=== PATIENT | male | born 1945 | race Caucasian/White ===

== ENCOUNTER 2017-05-21 12:23 | Inpatient (IN) | payer MEDICARE, MEDICAID ==
--- NOTE | 2017-05-21 12:49 | ED Physician Chart ---
ED Chief Complaint/HPI - Patient Information Date Seen:: 05/21/17 Time Seen:: 12:30 Chief Complaint:: Weakness History of Present Illness:: onset x 3 days of N/V/D, weakness, and dizziness; no report of trauma, H/As, S/T , neck pain, C/P, SOB, cough, Abd. Pain, A/C, fever, chills, or urinary s/s Historian:: Patient, EMS Review:: Nurse's Note Reviewed, Old Chart Reviewed, EMS run form Reviewed ED Review of Systems - Review of Systems General/Constitutional: No fever, No chills, No weight loss, No weakness, No diaphoresis, No edema, No loss of appetite Skin: No skin lesions, No rash, No bruising Head: No headache, No light-headedness Eyes: No loss of vision, No pain, No diplopia ENT: No earache, No nasal drainage, No sore throat, No tinnitus Neck: No neck pain, No swelling, No thyromegaly, No stiffness, No mass noted Cardio Vascular: No chest pain, No palpitations, No PND, No orthopnea, No edema Pulmonary: No SOB, No cough, No sputum, No wheezing GI: Nausea, Vomiting, Diarrhea, No pain, No melena, No hematochezia, No constipation, No hematemesis G/U: No dysuria, No frequency, No hematuria, No nacturia Musculoskeletal: No bone or joint pain, No back pain, No muscle pain Endocrine: Polyuria, Polydipsia Psychiatric: No prior psych history, No depression, No anxiety, No suicidal ideation, No homicidal ideation, No auditory hallucination, No visual hallucination Hematopoietic: No bruising, No lymphadenopathy Allergic/Immuno: No urticaria, No angioedema Neurological: No syncope, No focal symptoms, Weakness, No paresthesia, No headache, No seizure, Dizziness, No confusion, Vertigo ED Past Medical History - Past Medical History Obtainable: Yes Past Medical History: HTN, DM, CAD, CHF, Asthma/COPD Family History: Diabetes Melitus, HTN Social History: Non Smoker, No Alcohol, No Drug Use, Single, Care Facility Surgical History: other (Left BKA) Psychiatricy History: None ED Physical Exam - Physical Examination General/Constitutional: Awake, Well-developed, well-nourished, Alert, No distress, GCS 15, Non-toxic appearing, Ambulatory Head: Atraumatic Eyes: Lids, conjuctiva normal, PERRL, EOMI Skin: Nl inspection, No rash, No skin lesions, No ecchymosis, Well hydrated, No lymphadenopathy ENMT: External ears, nose nl, TM canals nl, Nasal exam nl, Lips, teeth, gums nl , Oropharynx nl, Tonsils nl Neck: Nontender, Full ROM w/o pain, No JVD, No nuchal rigidity, No bruit, No mass, No stridor Respiratory: Nl effort/Exclusion, Clear to Auscultation, No Wheeze/Rhonchi/Rales Cardio Vascular: RRR, No murmur, gallop, rubs, NL S1 S2, Carotid/Femoral/Distal pulses equal bilaterally GI: No tenderness/rebounding/guarding, No organomegaly, No hernia, Normal BS's, Nondistended, No mass/bruits, No McBurney tenderness : No CVA tenderness Extremities: No tenderness or effusion, Full ROM, normal strength in all extremities, No edema, Normal digits & nails Other Extremities comments:: Left BKA Neuro/Psych: Alert/oriented, DTR's symmetric, Normal sensory exam, Normal motor strength, Judgement/insight normal, Mood normal, Normal gait, No focal deficits Misc: Normal back, No paraspinal tenderness ED Labs/Radiology/EKG Results - Lab Results Comments:: WBC: 15.3; H/H: 9.5/28.3; Platelets: 533; Na+: 135; BNP: 350; Troponin: 0.12 - Radiology Results Comments:: CHF - EKG Interpretations EKG Time:: 13:28 Rate & Rhythm: 69; NSR Comments:: non-specific st-t changes ED Septic Shock - . Is Septic Shock (SBP<90, OR Lactate>4 mmol\L) present?: No ED Reassessment (Disposition) - Reassessment Reassessment Condition:: Improved - Diagnosis Diagnosis:: Dx: Leukocytosis; Sepsis; Anemia; Hyponatremia; CHF - Aftercare/Follow up Instructions Aftercare/Follow-Up Instructions:: Counseled pt regarding lab results/diagnosis & need follow up, Counseled pt & family regarding lab results/diagnosis & need follow up - Patient Disposition Discharge/Transfer:: Acute Care w/in this hosp Accepting Physician:: Dr. Cerna Time Called:: 1445 Time Responded:: 14:45 Admitted to:: Telemetry Spoke to:: Dr. Cerna Admitting Medical Physician:: Dr. Cerna Condition at Disposition:: Stable, Improved
[2017-05-21] MEDS ORDERED: Sodium Chloride 0.9% 1,000 ML IV ONE (12:50)
[2017-05-21 13:34] LABS: % EOSINOPHILS 4.5 % (0.0-5.0); % LYMPHOCYTES 14.7 % (20.0-50.0); % MONOCYTES 5.6 % (2.0-10.0); % NEUTROPHILS 75.2 % (40.0-80.0); EOSINOPHILE ABSOLUTE 0.7 Th/cmm (0.1-0.4); HEMATOCRIT 28.3 % (41.0-60); HEMOGLOBIN 9.5 gm/dL (12-16); LYMPHOCYTE ABSOLUTE 2.2 Th/cmm (1.5-3.0); MEAN CELL VOLUME 85.9 fl (80-99); MEAN CORPUSCULAR HEMOGLOBIN 28.7 pg (27.0-31.0); MEAN CORPUSCULAR HGB CONC 33.4 pg (28.0-36.0); MEAN PLATELET VOLUME 8.2 fl; MONOCYTE ABSOLUTE 0.9 Th/cmm (0.3-1.0); NEUTROPHILE ABSOLUTE 11.5 Th/cmm (1.8-8.0); PLATELET COUNT 533 Th/cmm (150-400); RED CELL DISTRIBUTION WIDTH 13.1 % (11.5-20.0)
[2017-05-21 13:38] LABS: ALB/GLOB RATIO 0.9 (1.0-1.8); ALKALINE PHOSPHATASE 64 U/L (34-104); ANION GAP 11.7 (7.0-16.0); BILIRUBIN,TOTAL 0.2 mg/dL (0.3-1.0); BUN - UREA NITROGEN 21 mg/dL (7-25); CALCIUM SERUM 8.2 mg/dL (8.6-10.3); CARBON DIOXIDE 22.9 mEq/L (21.0-31.0); CHLORIDE 104 mEq/L (98-107); CHOLESTEROL 119 mg/dL (<200); CREATININE - SERUM 1.6 mg/dL (0.7-1.3); CREATININE KINASE 63 U/L (30-223); GLUCOSE 167 mg/dL (70-105); HDL -HIGH DENSITY LIPOPROTEIN 34 mg/dL (23-92); POTASSIUM SERUM 3.6 mEq/L (3.5-5.1); SGOT 8 U/L (13-39); SGPT/ALT 8 U/L (7-52); SODIUM SERUM 135 mEq/L (136-145); TOTAL PROTEIN,SERUM 6.5 gm/dL (6.0-8.3); TRIGLYCERIDES 152 mg/dL (<150)
[2017-05-21 13:39] LABS: AMYLASE SERUM 32 U/L (29-103); LIPASE 14 U/L (11-82)
[2017-05-21 13:42] LABS: WHITE BLOOD COUNT 15.3 Th/cmm (4.8-10.8)
[2017-05-21 13:54] LABS: INR 1.09 (0.5-1.4); PROTHROMBIN TIME (TEST) 11.4 SECONDS (9.5-11.5)
--- NOTE | 2017-05-21 14:11 | Diagnostic Imaging Report ---
Portable chest x-ray History: Pain Allowing for portable technique the heart size is normal. No focal pulmonary parenchymal processes. No hilar or mediastinal abnormalities. Degenerative changes seen to the spine. Impression: No acute abnormalities.
[2017-05-21 16:21] LABS: URINE MICROSCOPIC INDICATED? YES; URINE SOURCE MIDSTREAM
[2017-05-21 16:28] LABS: URINE BILIRUBIN NEGATIVE (NEGATIVE); URINE BLOOD MODERATE (NEGATIVE); URINE GLUCOSE (UA) 250 mg/dL (NEGATIVE); URINE KETONE NEGATIVE (NEGATIVE); URINE LEUKOCYTE ESTERASE NEGATIVE (NEGATIVE); URINE NITRATE NEGATIVE (NEGATIVE); URINE PROTEIN >=300 mg/dL (NEGATIVE); URINE UROBILINOGEN 0.2 E.U./dL (0.2 - 1.0)
[2017-05-21 16:55] LABS: URINE CLARITY HAZY (CLEAR); URINE COLOR YELLOW
[2017-05-21 16:56] LABS: URINE BACTERIA NONE SEEN /hpf (NONE SEEN); URINE EPITHELIAL CELLS NONE SEEN /lpf (FEW)
[2017-05-21] MEDS ORDERED: cefTRIAXone 1 GM in Sodium Chloride 0.9% 50 ML IV ONE (16:57)
[2017-05-21] MEDS ORDERED: Dextrose 50% 50 mL Abboject IVP PRN (21:43)
[2017-05-21] MEDS ORDERED: Magnesium Hydroxide (MOM) 30 mL UDC PO PRN (21:43)
[2017-05-21] MEDS: D5-0.45NS 1,000 ML IV SCH (21:51)
[2017-05-21] MEDS ORDERED: Azithromycin 250 MG in Sodium Chloride 0.9% 250 ML IV SCH (22:00)
[2017-05-21 23:23] VITALS: BP 141/51
[2017-05-21] MEDS ORDERED: Pneumococcal Vaccine 0.5 mL Vial IM ONE (23:40)
[2017-05-22 07:01] LABS: ANION GAP 8.1 (7.0-16.0); BUN - UREA NITROGEN 16 mg/dL (7-25); CALCIUM SERUM 7.6 mg/dL (8.6-10.3); CARBON DIOXIDE 24.2 mEq/L (21.0-31.0); CHLORIDE 110 mEq/L (98-107); CREATININE - SERUM 1.3 mg/dL (0.7-1.3); GLUCOSE 158 mg/dL (70-105); POTASSIUM SERUM 3.3 mEq/L (3.5-5.1); SODIUM SERUM 139 mEq/L (136-145)
[2017-05-22 07:24] LABS: % BASOPHILS 0.2 % (0.0-2.0); % EOSINOPHILS 6.2 % (0.0-5.0); % LYMPHOCYTES 13.4 % (20.0-50.0); % MONOCYTES 7.5 % (2.0-10.0); % NEUTROPHILS 72.7 % (40.0-80.0); EOSINOPHILE ABSOLUTE 0.7 Th/cmm (0.1-0.4); HEMATOCRIT 28.7 % (41.0-60); HEMOGLOBIN 9.5 gm/dL (12-16); LYMPHOCYTE ABSOLUTE 1.6 Th/cmm (1.5-3.0); MEAN CELL VOLUME 86.4 fl (80-99); MEAN CORPUSCULAR HEMOGLOBIN 28.5 pg (27.0-31.0); MEAN PLATELET VOLUME 8.4 fl; MONOCYTE ABSOLUTE 0.9 Th/cmm (0.3-1.0); NEUTROPHILE ABSOLUTE 8.7 Th/cmm (1.8-8.0); PLATELET COUNT 432 Th/cmm (150-400); RED BLOOD COUNT 3.32 Mil/cmm (3.80-5.80); RED CELL DISTRIBUTION WIDTH 13.1 % (11.5-20.0)
[2017-05-22 07:26] LABS: WHITE BLOOD COUNT 11.9 Th/cmm (4.8-10.8)
[2017-05-22 07:33] LABS: CHOLESTEROL 102 mg/dL (<200); HDL -HIGH DENSITY LIPOPROTEIN 29 mg/dL (23-92); TRIGLYCERIDES 107 mg/dL (<150)
[2017-05-22] MEDS: INSULIN ASPART SLIDING SCALE 100 UNITS/ML UNIT SUBQ SCH ×4 (07:40→21:06)
[2017-05-22] MEDS: Levofloxacin 750mg/150mL 750 MG/150 ML BAG IV SCH (07:45)
[2017-05-22] MEDS: Fluticasone Propionate 0.05mg/Actuation 16gm Nasal Spray NS SCH (08:40)
[2017-05-22] MEDS ORDERED: Non-Formulary Item 1 EA (Protein Supplement [Promod] 30 ML) PO SCH (09:00)
[2017-05-22] MEDS ORDERED: Fleet Enema 135 mL RC PRN (09:00)
[2017-05-22] MEDS ORDERED: Potassium Chloride 20 mEq ER Tab PO ONE (12:45)
--- NOTE | 2017-05-22 16:25 | History and Physical ---
History of Present Illness - HPI Vital Signs: Last Vital Signs Temp 97.8 F 05/22/17 04:00 Pulse 70 05/22/17 08:41 Resp 20 05/22/17 08:00 BP 156/59 05/22/17 08:41 Pulse Ox 99 05/22/17 04:00 Family Medical History - Family Member Mother History Unknown: Yes - Medications Home Medications: Home Medication Medication Instructions Recorded Type Acetaminophen [Tylenol] 650 mg PO Q4HR PRN 05/21/17 History Atorvastatin Calcium [Lipitor] 1 tab PO HS 05/21/17 History Benazepril HCl 20 mg PO DAILY 05/21/17 History Bisacodyl [Dulcolax 10 Mg Supp] 1 supp RC DAILY PRN 05/21/17 History Clopidogrel [Plavix] 1 tab PO DAILY 05/21/17 History Dextrose 25% [Dextrose 10 ml] 50 ml IV STAT PRN PRN 05/21/17 History Dextrose [Glucose Gel] 15 gm PO STAT PRN PRN 05/21/17 History Docusate Sodium [Colace] 1 cap PO Q12H PRN 05/21/17 History Finasteride [Proscar] 1 tab PO DAILY 05/21/17 History Fleet Enema 1 bot RC DAILY 05/21/17 History Hydrocodone/Acetaminophen [[place] 1 tab PO Q4H PRN 05/21/17 History 325 mg-5 mg*] Hydrocodone/Acetaminophen [[place] 2 tab PO Q4H PRN 05/21/17 History 325 mg-5 mg*] Insulin Aspart Sliding Scale See Protocol SUBQ ACHS PRN 05/21/17 History [NovoLOG INSULIN SLIDING SCALE] Labetalol HCl 200 mg PO DAILY 05/21/17 History Magnesium Hydroxide [Milk of 30 ml PO DAILY PRN 05/21/17 History Magnesia] Ondansetron [Zofran ODT] 4 mg PO Q6HR PRN 05/21/17 History Protein Supplement [Promod] 30 ml PO TID 05/21/17 History Tamsulosin [Flomax] 0.4 mg PO DAILY 05/21/17 History amLODIPine Besylate [Norvasc*] 10 mg PO DAILY 05/21/17 History - Allergies Allergies/Adverse Reactions: Allergies Allergy/AdvReac Type Severity Reaction Status Date / Time No Known Allergies Allergy Verified 05/21/17 13:15 - Lab Results All Lab Results last 24 hours: Laboratory Results - last 24 hr 05/22/17 05/22/17 05/22/17 06:00 06:00 06:00 WBC 11.9 H D RBC 3.32 L Hgb 9.5 L Hct 28.7 L MCV 86.4 MCH 28.5 MCHC Differential 33.0 RDW 13.1 Plt Count 432 H MPV 8.4 Neutrophils % 72.7 Lymphocytes % 13.4 L Monocytes % 7.5 Eosinophils % 6.2 H Basophils % 0.2 Sodium Potassium Chloride Carbon Dioxide Anion Gap BUN Creatinine Est GFR ( Amer) Est GFR (Non-Af Amer) BUN/Creatinine Ratio Glucose POC Glucose Calcium Triglycerides 107 Cholesterol 102 LDL Cholesterol Direct 58 L HDL Cholesterol 29 TSH 0.97 05/22/17 05/22/17 05/22/17 06:00 06:48 11:18 WBC RBC Hgb Hct MCV MCH MCHC Differential RDW Plt Count MPV Neutrophils % Lymphocytes % Monocytes % Eosinophils % Basophils % Sodium 139 Potassium 3.3 L Chloride 110 H Carbon Dioxide 24.2 Anion Gap 8.1 BUN 16 Creatinine 1.3 Est GFR ( Amer) TNP Est GFR (Non-Af Amer) TNP BUN/Creatinine Ratio 12.3 Glucose 158 H POC Glucose 139 H 180 H Calcium 7.6 L Triglycerides Cholesterol LDL Cholesterol Direct HDL Cholesterol TSH
[2017-05-22] MEDS: Atorvastatin Calcium 10 MG TAB PO SCH (21:06)
[2017-05-22] MEDS: Hydrocodone/APAP 5mg/325mg Tab PO PRN (21:06)
[2017-05-23] MEDS: Levofloxacin 750mg/150mL 750 MG/150 ML BAG IV SCH (05:03)
[2017-05-23] MEDS: INSULIN ASPART SLIDING SCALE 100 UNITS/ML UNIT SUBQ SCH ×4 (06:52→21:38)
[2017-05-23] MEDS: Fluticasone Propionate 0.05mg/Actuation 16gm Nasal Spray NS SCH (09:42)
--- NOTE | 2017-05-23 14:30 | Internal Medicine Prog Note ---
Internal Medicine Subjective - Subjective Service Date: 05/23/17 Patient seen and examined:: with staff Patient is:: awake Per staff patient has:: tolerating meds Internal Medicine Objective - Results Result Diagrams: 05/22/17 06:00 05/22/17 06:00 Recent Labs: Laboratory Last Values WBC 11.9 Th/cmm (4.8-10.8) H D 05/22/17 06:00 RBC 3.32 Mil/cmm (3.80-5.80) L 05/22/17 06:00 Hgb 9.5 gm/dL (12-16) L 05/22/17 06:00 Hct 28.7 % (41.0-60) L 05/22/17 06:00 MCV 86.4 fl (80-99) 05/22/17 06:00 MCH 28.5 pg (27.0-31.0) 05/22/17 06:00 MCHC Differential 33.0 pg (28.0-36.0) 05/22/17 06:00 RDW 13.1 % (11.5-20.0) 05/22/17 06:00 Plt Count 432 Th/cmm (150-400) H 05/22/17 06:00 MPV 8.4 fl 05/22/17 06:00 Neutrophils % 72.7 % (40.0-80.0) 05/22/17 06:00 Lymphocytes % 13.4 % (20.0-50.0) L 05/22/17 06:00 Monocytes % 7.5 % (2.0-10.0) 05/22/17 06:00 Eosinophils % 6.2 % (0.0-5.0) H 05/22/17 06:00 Basophils % 0.2 % (0.0-2.0) 05/22/17 06:00 PT 11.4 SECONDS (9.5-11.5) 05/21/17 12:55 INR 1.09 (0.5-1.4) 05/21/17 12:55 PTT (Actin FS) 28.4 SECONDS (26.0-38.0) 05/21/17 12:55 Sodium 139 mEq/L (136-145) 05/22/17 06:00 Potassium 3.3 mEq/L (3.5-5.1) L 05/22/17 06:00 Chloride 110 mEq/L (98-107) H 05/22/17 06:00 Carbon Dioxide 24.2 mEq/L (21.0-31.0) 05/22/17 06:00 Anion Gap 8.1 (7.0-16.0) 05/22/17 06:00 BUN 16 mg/dL (7-25) 05/22/17 06:00 Creatinine 1.3 mg/dL (0.7-1.3) 05/22/17 06:00 Est GFR ( Amer) TNP 05/22/17 06:00 Est GFR (Non-Af Amer) TNP 05/22/17 06:00 BUN/Creatinine Ratio 12.3 05/22/17 06:00 Glucose 158 mg/dL (70-105) H 05/22/17 06:00 POC Glucose 231 MG/DL (70 - 105) H 05/23/17 11:22 Whole Bld Lactic Acid 0.82 mmol/L (0.60-1.99) 05/21/17 12:55 Calcium 7.6 mg/dL (8.6-10.3) L 05/22/17 06:00 Total Bilirubin 0.2 mg/dL (0.3-1.0) L 05/21/17 12:55 AST 8 U/L (13-39) L 05/21/17 12:55 ALT 8 U/L (7-52) 05/21/17 12:55 Alkaline Phosphatase 64 U/L (34-104) 05/21/17 12:55 Creatine Kinase 63 U/L (30-223) 05/21/17 12:55 Troponin I 0.12 ng/mL (0.01-0.05) H* 05/21/17 12:55 B-Natriuretic Peptide 350.0 pg/mL (5.0-100.0) H 05/21/17 12:55 Total Protein 6.5 gm/dL (6.0-8.3) 05/21/17 12:55 Albumin 3.0 gm/dL (4.2-5.5) L 05/21/17 12:55 Globulin 3.5 gm/dL 05/21/17 12:55 Albumin/Globulin Ratio 0.9 (1.0-1.8) L 05/21/17 12:55 Triglycerides 107 mg/dL (<150) 05/22/17 06:00 Cholesterol 102 mg/dL (<200) 05/22/17 06:00 LDL Cholesterol Direct 58 mg/dL (75-193) L 05/22/17 06:00 HDL Cholesterol 29 mg/dL (23-92) 05/22/17 06:00 Amylase 32 U/L (29-103) 05/21/17 12:55 Lipase 14 U/L (11-82) 05/21/17 12:55 TSH 0.97 uIU/ml (0.34-5.60) 05/22/17 06:00 Urine Source MIDSTREAM 05/21/17 16:00 Urine Color YELLOW 05/21/17 16:00 Urine Clarity HAZY (CLEAR) 05/21/17 16:00 Urine pH 6.0 (4.6 - 8.0) 05/21/17 16:00 Ur Specific [place] 1.025 (1.005-1.030) 05/21/17 16:00 Urine Protein >=300 mg/dL (NEGATIVE) 05/21/17 16:00 Urine Glucose (UA) 250 mg/dL (NEGATIVE) H 05/21/17 16:00 Urine Ketones NEGATIVE mg/dL (NEGATIVE) 05/21/17 16:00 Urine Blood MODERATE (NEGATIVE) H 05/21/17 16:00 Urine Nitrate NEGATIVE (NEGATIVE) 05/21/17 16:00 Urine Bilirubin NEGATIVE (NEGATIVE) 05/21/17 16:00 Urine Urobilinogen 0.2 E.U./dL (0.2 - 1.0) 05/21/17 16:00 Ur Leukocyte Esterase NEGATIVE (NEGATIVE) 05/21/17 16:00 Urine RBC 5-10 /hpf (0-5) H 05/21/17 16:00 Urine WBC 2-5 /hpf (0-5) H 05/21/17 16:00 Ur Epithelial Cells NONE SEEN /lpf (FEW) 05/21/17 16:00 Urine Bacteria NONE SEEN /hpf (NONE SEEN) 05/21/17 16:00 - Physical Exam Vitals and I&O: Vital Signs Temp 97.8 F 05/23/17 08:00 Pulse 89 05/23/17 08:28 Resp 20 05/23/17 08:00 BP 161/60 05/23/17 08:28 Pulse Ox 98 05/23/17 08:00 Intake & Output 05/22/17 05/23/17 05/23/17 18:59 06:59 18:59 Intake Total 250 50 Output Total 300 Balance 250 -250 Weight (lbs) 157 lb 150 lb Intake: Intake, IV Amount 150 Levofloxacin 750mg/150mL 150 750 mg In 150 ml @ 100 mls/hr IV Q24HR [facility] Rx#: [id number] Oral 100 50 Output: Urine 300 Other: # Voids 3 # Bowel Movements 0 Active Medications: Current Medications Acetaminophen (Tylenol) 650 mg PO Q4H PRN PRN Reason: Fever > 101 Stop: 07/20/17 20:29 Last Admin: 05/23/17 14:22 Dose: 650 mg Acetaminophen (Tylenol) 650 mg PO Q4HR PRN PRN Reason: Pain (Mild) Stop: 07/20/17 21:42 Acetaminophen/Hydrocodone Bitart ([place] 5mg/325mg) 1 tab PO Q4H PRN PRN Reason: Pain (Moderate) Stop: 07/20/17 21:42 Last Admin: 05/22/17 21:06 Dose: 1 tab Amlodipine Besylate (Norvasc) 10 mg PO DAILY [facility] Stop: 07/21/17 08:59 Last Admin: 05/23/17 08:28 Dose: 10 mg Atorvastatin Calcium (Lipitor) 10 mg PO HS [place] PRN Reason: Protocol Stop: 07/21/17 20:59 Last Admin: 05/22/17 21:06 Dose: 10 mg Benazepril HCl (Lotensin) 20 mg PO DAILY [facility] Stop: 07/21/17 08:59 Last Admin: 05/23/17 08:27 Dose: 20 mg Bisacodyl (Dulcolax 10 Mg Supp) 10 mg RC DAILY PRN PRN Reason: Constipation Stop: 07/20/17 21:42 Clopidogrel Bisulfate (Plavix) 75 mg PO DAILY [facility] Stop: 07/21/17 12:59 Last Admin: 05/23/17 08:27 Dose: 75 mg Dextrose (D50w) 50 ml IVP PRN PRN PRN Reason: BS <70 if w/IV&not swallow Stop: 07/20/17 21:42 Dextrose (Glutose 40%) 15 gm PO PRN PRN PRN Reason: BS BELOW 70 & ABLE TO SWALLOW Stop: 07/20/17 21:42 Docusate Sodium (Colace) 100 mg PO Q12H PRN PRN Reason: Constipation Stop: 07/20/17 21:42 Finasteride (Proscar) 5 mg PO DAILY [place] PRN Reason: Protocol Stop: 07/21/17 12:59 Last Admin: 05/23/17 08:27 Dose: 5 mg Fluticasone Propionate (Flonase) 1 spr NS DAILY [facility] Stop: 07/21/17 08:59 Last Admin: 05/23/17 09:42 Dose: 1 spr Dextrose/Sodium Chloride (D5-0.45ns) 1,000 mls @ 50 mls/hr IV .Q20H [facility] Stop: 07/20/17 21:59 Last Admin: 05/21/17 21:51 Dose: 50 mls/hr Levofloxacin (Levaquin Pb) 750 mg in 150 mls @ 100 mls/hr IV Q24HR [facility] Stop: 07/21/17 05:59 Last Admin: 05/23/17 05:03 Dose: 100 mls/hr Insulin Aspart (Novolog Insulin Sliding Scale) 0 units SUBQ ACHS [facility] PRN Reason: Protocol Stop: 07/21/17 07:29 Last Admin: 05/23/17 12:55 Dose: 4 units Labetalol HCl (Trandate) 200 mg PO DAILY [facility] Stop: 07/22/17 08:59 Last Admin: 05/23/17 08:27 Dose: 200 mg Magnesium Hydroxide (Milk Of Magnesia) 30 ml PO DAILY PRN PRN Reason: Constipation Stop: 07/20/17 21:42 Ondansetron HCl (Zofran Odt) 4 mg PO Q6HR PRN PRN Reason: Nausea Stop: 07/20/17 21:42 Last Admin: 05/23/17 10:58 Dose: 4 mg Sodium Phosphate (Fleet Enema) 135 ml RC DAILY PRN PRN Reason: IF MOM & DULCOLAZ INEFFECTIVE Stop: 07/21/17 08:59 Tamsulosin HCl (Flomax) 0.4 mg PO DAILY [facility] Stop: 07/21/17 08:59 Last Admin: 05/23/17 08:28 Dose: 0.4 mg General: alert HEENT: NC/AT, PERRLA Neck: Supple Cardiovascular: RRR, Normal S1, Normal S2, without murmur Abdomen: soft, non-tender, non-distended, positive bowel sound Internal Medicine Assmt/Plan - Assessment Assessment: sepsis hyponatremia - Plan Plan: IVF FOR HYDRATION CONTINUE IVABX PER ID CONTINUE CURRENT PLAN OF CARE Nutritional Asmnt/Malnutr-PDOC - Dietary Evaluation Malnutrition Findings (Please click <Entered> for more info): Nutritional Asmnt/Malnutrition Start: 05/22/17 16: 34 Text: Status: Complete Freq: Document 05/22/17 16:34 [facility] (Rec: 05/22/17 16:56 [email or web address] [email or web address]) Nutritional Asmnt/Malnutrition Patient General Information Nutritional Screening High Risk Diagnosis sepsis, hyponatremia Pertinent Medical Hx/Surgical Hx HTN, DM, CAD, CHF, Asthma/COPD , left BKA Subjective Information Pt seen sitting in bed having lunch at the time of visit. Prydeinig speaking. pt reported appetite not well, ate 50% of breakfast this morning. adjusted BMI= 26.7 considering left BKA Current Diet Order/ Nutrition Support low sodium, prosource 30ml TID Pertinent Medications d5-0.45ns, colace, novolog, lavaquin Pertinent Labs / Na 139, K 3.3, Cl 110, Glucose 158, POC 139-180, Ca 7 .6 Nutritional Hx/Data Height 5 ft 6 in Height (Calculated Centimeters) 167.6 Current Weight (lbs) 157 lb Weight (Calculated Kilograms) 71.2 Weight (Calculated Grams) 93861.0 [place] Body Weight 134 % [place] Body Weight 117 Body Mass Index (BMI) 25.3 Weight Status Overweight GI Symptoms GI Symptoms None Last BM none Difficult in: None Skin Integrity/Comment: scar to left leg d/t BKA, diabetic ulcer between 2nd and 3rd toes, darkened area to right leg Estimated Nutritional Goals BEE in Kcals: Using Current wt Calories/Kcals/Kg 27-32 Kcals Calculated 3039-4137 Protein: Using Current wt Protein g/k.2-1.4 Protein Calculated 85-99 Fluid: ml [id number] (1ml/kcal) Nutritional Problem 1. Problem Problem increased nutrition needs ( calorie and protein0 Etiology increased metabolic demand for wound healing Signs/Symptoms: diabetic ulcer Malnutrition Alert Protein-Calorie Malnutrition N/A Is there a minimum of two criteria No selected? Query Text:Check all the applicable criteria. A minimum of two criteria are recommended for diagnosis of either severe or non-severe malnutrition. Intervention/Recommendation Comments 1. Recommend [facility] low sodium diet for optimal glycemic control. Notified RN, will talk to MD. 2. Monitor PO intake, wt, labs and skin integrity 3. F/U as moderate risk in 3-5 days, 05/25-05/27, PO check 05/24 Expected Outcomes/Goals Expected Outcomes/Goals 1. PO intake to meet at least 75% of nutritional needs. 2. Wt stability, skin to remain intact, labs to improve
[2017-05-23] MEDS: Atorvastatin Calcium 10 MG TAB PO SCH (21:37)
--- NOTE | 2017-05-23 23:51 | Infectious Disease Prog Note ---
Infectious Disease Subjective - Review of Systems Service Date: 05/23/17 Subjective: No new change, low grade fever. Infectious Disease Objective - Results Result Diagrams: 05/22/17 06:00 05/22/17 06:00 Recent Labs: Laboratory Last Values WBC 11.9 Th/cmm (4.8-10.8) H D 05/22/17 06:00 RBC 3.32 Mil/cmm (3.80-5.80) L 05/22/17 06:00 Hgb 9.5 gm/dL (12-16) L 05/22/17 06:00 Hct 28.7 % (41.0-60) L 05/22/17 06:00 MCV 86.4 fl (80-99) 05/22/17 06:00 MCH 28.5 pg (27.0-31.0) 05/22/17 06:00 MCHC Differential 33.0 pg (28.0-36.0) 05/22/17 06:00 RDW 13.1 % (11.5-20.0) 05/22/17 06:00 Plt Count 432 Th/cmm (150-400) H 05/22/17 06:00 MPV 8.4 fl 05/22/17 06:00 Neutrophils % 72.7 % (40.0-80.0) 05/22/17 06:00 Lymphocytes % 13.4 % (20.0-50.0) L 05/22/17 06:00 Monocytes % 7.5 % (2.0-10.0) 05/22/17 06:00 Eosinophils % 6.2 % (0.0-5.0) H 05/22/17 06:00 Basophils % 0.2 % (0.0-2.0) 05/22/17 06:00 PT 11.4 SECONDS (9.5-11.5) 05/21/17 12:55 INR 1.09 (0.5-1.4) 05/21/17 12:55 PTT (Actin FS) 28.4 SECONDS (26.0-38.0) 05/21/17 12:55 Sodium 139 mEq/L (136-145) 05/22/17 06:00 Potassium 3.3 mEq/L (3.5-5.1) L 05/22/17 06:00 Chloride 110 mEq/L (98-107) H 05/22/17 06:00 Carbon Dioxide 24.2 mEq/L (21.0-31.0) 05/22/17 06:00 Anion Gap 8.1 (7.0-16.0) 05/22/17 06:00 BUN 16 mg/dL (7-25) 05/22/17 06:00 Creatinine 1.3 mg/dL (0.7-1.3) 05/22/17 06:00 Est GFR ( Amer) TNP 05/22/17 06:00 Est GFR (Non-Af Amer) TNP 05/22/17 06:00 BUN/Creatinine Ratio 12.3 05/22/17 06:00 Glucose 158 mg/dL (70-105) H 05/22/17 06:00 POC Glucose 217 MG/DL (70 - 105) H 05/23/17 20:23 Whole Bld Lactic Acid 0.82 mmol/L (0.60-1.99) 05/21/17 12:55 Calcium 7.6 mg/dL (8.6-10.3) L 05/22/17 06:00 Total Bilirubin 0.2 mg/dL (0.3-1.0) L 05/21/17 12:55 AST 8 U/L (13-39) L 05/21/17 12:55 ALT 8 U/L (7-52) 05/21/17 12:55 Alkaline Phosphatase 64 U/L (34-104) 05/21/17 12:55 Creatine Kinase 63 U/L (30-223) 05/21/17 12:55 Troponin I 0.12 ng/mL (0.01-0.05) H* 05/21/17 12:55 B-Natriuretic Peptide 350.0 pg/mL (5.0-100.0) H 05/21/17 12:55 Total Protein 6.5 gm/dL (6.0-8.3) 05/21/17 12:55 Albumin 3.0 gm/dL (4.2-5.5) L 05/21/17 12:55 Globulin 3.5 gm/dL 05/21/17 12:55 Albumin/Globulin Ratio 0.9 (1.0-1.8) L 05/21/17 12:55 Triglycerides 107 mg/dL (<150) 05/22/17 06:00 Cholesterol 102 mg/dL (<200) 05/22/17 06:00 LDL Cholesterol Direct 58 mg/dL (75-193) L 05/22/17 06:00 HDL Cholesterol 29 mg/dL (23-92) 05/22/17 06:00 Amylase 32 U/L (29-103) 05/21/17 12:55 Lipase 14 U/L (11-82) 05/21/17 12:55 TSH 0.97 uIU/ml (0.34-5.60) 05/22/17 06:00 Urine Source MIDSTREAM 05/21/17 16:00 Urine Color YELLOW 05/21/17 16:00 Urine Clarity HAZY (CLEAR) 05/21/17 16:00 Urine pH 6.0 (4.6 - 8.0) 05/21/17 16:00 Ur Specific [place] 1.025 (1.005-1.030) 05/21/17 16:00 Urine Protein >=300 mg/dL (NEGATIVE) 05/21/17 16:00 Urine Glucose (UA) 250 mg/dL (NEGATIVE) H 05/21/17 16:00 Urine Ketones NEGATIVE mg/dL (NEGATIVE) 05/21/17 16:00 Urine Blood MODERATE (NEGATIVE) H 05/21/17 16:00 Urine Nitrate NEGATIVE (NEGATIVE) 05/21/17 16:00 Urine Bilirubin NEGATIVE (NEGATIVE) 05/21/17 16:00 Urine Urobilinogen 0.2 E.U./dL (0.2 - 1.0) 05/21/17 16:00 Ur Leukocyte Esterase NEGATIVE (NEGATIVE) 05/21/17 16:00 Urine RBC 5-10 /hpf (0-5) H 05/21/17 16:00 Urine WBC 2-5 /hpf (0-5) H 05/21/17 16:00 Ur Epithelial Cells NONE SEEN /lpf (FEW) 05/21/17 16:00 Urine Bacteria NONE SEEN /hpf (NONE SEEN) 05/21/17 16:00 - Physical Exam Vitals and I&O: Vital Signs Temp 98.2 F 05/23/17 16:00 Pulse 84 05/23/17 16:00 Resp 19 05/23/17 16:00 BP 140/96 05/23/17 16:00 Pulse Ox 97 05/23/17 16:00 Intake & Output 05/23/17 05/23/17 05/24/17 06:59 18:59 06:59 Intake Total 50 Output Total 300 Balance -250 Weight (lbs) 68.039 kg 68.039 kg Intake: Oral 50 Output: Urine 300 Other: # Voids 4 # Bowel Movements 3 Active Medications: Current Medications Acetaminophen (Tylenol) 650 mg PO Q4H PRN PRN Reason: Fever > 101 Stop: 07/20/17 20:29 Last Admin: 05/23/17 21:37 Dose: 650 mg Acetaminophen (Tylenol) 650 mg PO Q4HR PRN PRN Reason: Pain (Mild) Stop: 07/20/17 21:42 Acetaminophen/Hydrocodone Bitart ([place] 5mg/325mg) 1 tab PO Q4H PRN PRN Reason: Pain (Moderate) Stop: 07/20/17 21:42 Last Admin: 05/22/17 21:06 Dose: 1 tab Amlodipine Besylate (Norvasc) 10 mg PO DAILY [facility] Stop: 07/21/17 08:59 Last Admin: 05/23/17 08:28 Dose: 10 mg Atorvastatin Calcium (Lipitor) 10 mg PO HS [place] PRN Reason: Protocol Stop: 07/21/17 20:59 Last Admin: 05/23/17 21:37 Dose: 10 mg Benazepril HCl (Lotensin) 20 mg PO DAILY [facility] Stop: 07/21/17 08:59 Last Admin: 05/23/17 08:27 Dose: 20 mg Bisacodyl (Dulcolax 10 Mg Supp) 10 mg RC DAILY PRN PRN Reason: Constipation Stop: 07/20/17 21:42 Clopidogrel Bisulfate (Plavix) 75 mg PO DAILY [facility] Stop: 07/21/17 12:59 Last Admin: 05/23/17 08:27 Dose: 75 mg Dextrose (D50w) 50 ml IVP PRN PRN PRN Reason: BS <70 if w/IV&not swallow Stop: 07/20/17 21:42 Dextrose (Glutose 40%) 15 gm PO PRN PRN PRN Reason: BS BELOW 70 & ABLE TO SWALLOW Stop: 07/20/17 21:42 Docusate Sodium (Colace) 100 mg PO Q12H PRN PRN Reason: Constipation Stop: 07/20/17 21:42 Finasteride (Proscar) 5 mg PO DAILY [place] PRN Reason: Protocol Stop: 07/21/17 12:59 Last Admin: 05/23/17 08:27 Dose: 5 mg Fluticasone Propionate (Flonase) 1 spr NS DAILY [facility] Stop: 07/21/17 08:59 Last Admin: 05/23/17 09:42 Dose: 1 spr Dextrose/Sodium Chloride (D5-0.45ns) 1,000 mls @ 50 mls/hr IV .Q20H [facility] Stop: 07/20/17 21:59 Last Admin: 05/21/17 21:51 Dose: 50 mls/hr Levofloxacin (Levaquin Pb) 750 mg in 150 mls @ 100 mls/hr IV Q24HR [facility] Stop: 07/21/17 05:59 Last Admin: 05/23/17 05:03 Dose: 100 mls/hr Insulin Aspart (Novolog Insulin Sliding Scale) 0 units SUBQ ACHS [place] PRN Reason: Protocol Stop: 07/21/17 07:29 Last Admin: 05/23/17 21:38 Dose: 4 units Labetalol HCl (Trandate) 200 mg PO DAILY [facility] Stop: 07/22/17 08:59 Last Admin: 05/23/17 08:27 Dose: 200 mg Magnesium Hydroxide (Milk Of Magnesia) 30 ml PO DAILY PRN PRN Reason: Constipation Stop: 07/20/17 21:42 Ondansetron HCl (Zofran Odt) 4 mg PO Q6HR PRN PRN Reason: Nausea Stop: 07/20/17 21:42 Last Admin: 05/23/17 10:58 Dose: 4 mg Sodium Phosphate (Fleet Enema) 135 ml RC DAILY PRN PRN Reason: IF MOM & DULCOLAZ INEFFECTIVE Stop: 07/21/17 08:59 Tamsulosin HCl (Flomax) 0.4 mg PO DAILY [facility] Stop: 07/21/17 08:59 Last Admin: 05/23/17 08:28 Dose: 0.4 mg General: no acute distress, well developed, well nourished HEENT: atraumatic, normocephalic, PERRLA Neck: supple, no thyromegaly Cardiovascular: S1S2, regular Lungs: clear to auscultation bilaterally, clear to percussion Abdomen: soft, no tender, no distended, no mass Extremities: no cyanosis, no clubbing, no edema Neurological: awake Infectious Disease Assmt/Plan - Assessment Assessment: 1. Sepsis. 2. UTI. 3. Diabetes mellitus type 2. 4. Hypertension. 5. Coronary artery disease. 6. CHF. 7. Asthma. 8. COPD. Recommendations: Continue levaquin. Nutritional Asmnt/Malnutr-PDOC - Dietary Evaluation Malnutrition Findings (Please click <Entered> for more info): Nutritional Asmnt/Malnutrition Start: 05/22/17 16: 34 Text: Status: Complete Freq: Document 05/22/17 16:34 LCGUSTAVOG (Rec: 05/22/17 16:56 LCGUSTAVOG [email or web address]) Nutritional Asmnt/Malnutrition Patient General Information Nutritional Screening High Risk Diagnosis sepsis, hyponatremia Pertinent Medical Hx/Surgical Hx HTN, DM, CAD, CHF, Asthma/COPD , left BKA Subjective Information Pt seen sitting in bed having lunch at the time of visit. Prydeinig speaking. pt reported appetite not well, ate 50% of breakfast this morning. adjusted BMI= 26.7 considering left BKA Current Diet Order/ Nutrition Support low sodium, prosource 30ml TID Pertinent Medications d5-0.45ns, colace, novolog, lavaquin Pertinent Labs 1/3 Na 139, K 3.3, Cl 110, Glucose 158, POC 139-180, Ca 7 .6 Nutritional Hx/Data Height 1.68 m Height (Calculated Centimeters) 167.6 Current Weight (lbs) 71.214 kg Weight (Calculated Kilograms) 71.2 Weight (Calculated Grams) 51031.0 [place] Body Weight 134 % [place] Body Weight 117 Body Mass Index (BMI) 25.3 Weight Status Overweight GI Symptoms GI Symptoms None Last BM none Difficult in: None Skin Integrity/Comment: scar to left leg d/t BKA, diabetic ulcer between 2nd and 3rd toes, darkened area to right leg Estimated Nutritional Goals BEE in Kcals: Using Current wt Calories/Kcals/Kg 27-32 Kcals Calculated 4052-4737 Protein: Using Current wt Protein g/k.2-1.4 Protein Calculated 85-99 Fluid: ml 1917-2272ml (1ml/kcal) Nutritional Problem 1. Problem Problem increased nutrition needs ( calorie and protein0 Etiology increased metabolic demand for wound healing Signs/Symptoms: diabetic ulcer Malnutrition Alert Protein-Calorie Malnutrition N/A Is there a minimum of two criteria No selected? Query Text:Check all the applicable criteria. A minimum of two criteria are recommended for diagnosis of either severe or non-severe malnutrition. Intervention/Recommendation Comments 1. Recommend [facility] low sodium diet for optimal glycemic control. Notified RN, will talk to MD. 2. Monitor PO intake, wt, labs and skin integrity 3. F/U as moderate risk in 3-5 days, 05/25-05/27, PO check 05/24 Expected Outcomes/Goals Expected Outcomes/Goals 1. PO intake to meet at least 75% of nutritional needs. 2. Wt stability, skin to remain intact, labs to improve
[2017-05-24] MEDS: Levofloxacin 750mg/150mL 750 MG/150 ML BAG IV SCH (06:23)
[2017-05-24] MEDS: INSULIN ASPART SLIDING SCALE 100 UNITS/ML UNIT SUBQ SCH ×4 (07:16→22:01)
[2017-05-24] MEDS: Fluticasone Propionate 0.05mg/Actuation 16gm Nasal Spray NS SCH (08:46)
--- NOTE | 2017-05-24 11:06 | Consultation ---
DATE OF CONSULTATION: 05/21/2017 REFERRING PHYSICIAN: Dr. Cerna. REASON FOR CONSULTATION: Sepsis. HISTORY OF PRESENT ILLNESS: The patient is 71-year-old male with a past medical history of hypertension, diabetes mellitus type 2, coronary artery disease, CHF, asthma, COPD presented to the ER for nausea, vomiting, diarrhea for 3 weeks. It was associated with generalized weakness. The patient denies head trauma, headache or dizziness. The patient also states that the patient has nasal congestion. No hematemesis. The patient has occasional cough. PAST MEDICAL HISTORY: As mentioned above, diabetes mellitus type 2, hypertension, coronary artery disease, CHF, asthma, COPD. ALLERGIES: NKDA. MEDICATIONS: As per medication reconciliation sheet. Antibiotic cardoza, the patient is receiving Rocephin and Zithromax. FAMILY HISTORY: Noncontributory. SOCIAL HISTORY: The patient lives at nursing facility. No history of smoking, alcohol or drug use. PAST SURGICAL HISTORY: Includes left BKA. REVIEW OF SYSTEMS: GENERAL: The patient has no fever, no chills, has no generalized weakness. HEENT: No diplopia, no photophobia, no sore throat. RESPIRATORY: No cough, no shortness of breath. CARDIOVASCULAR: No chest pain or palpitation. GASTROINTESTINAL: No nausea, no vomiting. PHYSICAL EXAMINATION: VITAL SIGNS: Shows temperature is 98.6, T-max is 101.1 degree Fahrenheit. General/Constitutional: Awake, Well-developed, well-nourished, Alert, No distress, GCS 15, Non-toxic appearing, Ambulatory Head: Atraumatic Eyes: Lids, conjuctiva normal, PERRL, EOMI Skin: Nl inspection, No rash, No skin lesions, No ecchymosis, Well hydrated, No lymphadenopathy ENMT: External ears, nose nl, TM canals nl, Nasal exam nl, Lips, teeth, gums nl , Oropharynx nl, Tonsils nl Neck: Nontender, Full ROM w/o pain, No JVD, No nuchal rigidity, No bruit, No mass, No stridor Respiratory: Nl effort/Exclusion, Clear to Auscultation, No Wheeze/Rhonchi/Rales Cardio Vascular: RRR, No murmur, gallop, rubs, NL S1 S2, Carotid/Femoral/Distal pulses equal bilaterally GI: No tenderness/rebounding/guarding, No organomegaly, No hernia, Normal BS's, Nondistended, No mass/bruits, No McBurney tenderness : No CVA tenderness Extremities: No tenderness or effusion, Full ROM, normal strength in all extremities, No edema, Normal digits & nails LAB: Reviewed. WBC 15,300. IMPRESSION: 1. Sepsis. 2. UTI. 3. Diabetes mellitus type 2. 4. Hypertension. 5. Coronary artery disease. 6. CHF. 7. Asthma. 8. COPD. Recommendations: Abigail esposito. Thank you Dr Cerna for involving me in taking care of this patient. JOB# [id number] EVANGELINA
[2017-05-24] MEDS: D5-0.45NS 1,000 ML IV SCH (12:17)
--- NOTE | 2017-05-24 12:18 | Internal Medicine Prog Note ---
Internal Medicine Subjective - Subjective Service Date: 05/24/17 Patient seen and examined:: with staff Patient is:: awake Per staff patient has:: tolerating meds Internal Medicine Objective - Results Result Diagrams: 05/22/17 06:00 05/22/17 06:00 Recent Labs: Laboratory Last Values WBC 11.9 Th/cmm (4.8-10.8) H D 05/22/17 06:00 RBC 3.32 Mil/cmm (3.80-5.80) L 05/22/17 06:00 Hgb 9.5 gm/dL (12-16) L 05/22/17 06:00 Hct 28.7 % (41.0-60) L 05/22/17 06:00 MCV 86.4 fl (80-99) 05/22/17 06:00 MCH 28.5 pg (27.0-31.0) 05/22/17 06:00 MCHC Differential 33.0 pg (28.0-36.0) 05/22/17 06:00 RDW 13.1 % (11.5-20.0) 05/22/17 06:00 Plt Count 432 Th/cmm (150-400) H 05/22/17 06:00 MPV 8.4 fl 05/22/17 06:00 Neutrophils % 72.7 % (40.0-80.0) 05/22/17 06:00 Lymphocytes % 13.4 % (20.0-50.0) L 05/22/17 06:00 Monocytes % 7.5 % (2.0-10.0) 05/22/17 06:00 Eosinophils % 6.2 % (0.0-5.0) H 05/22/17 06:00 Basophils % 0.2 % (0.0-2.0) 05/22/17 06:00 PT 11.4 SECONDS (9.5-11.5) 05/21/17 12:55 INR 1.09 (0.5-1.4) 05/21/17 12:55 PTT (Actin FS) 28.4 SECONDS (26.0-38.0) 05/21/17 12:55 Sodium 139 mEq/L (136-145) 05/22/17 06:00 Potassium 3.3 mEq/L (3.5-5.1) L 05/22/17 06:00 Chloride 110 mEq/L (98-107) H 05/22/17 06:00 Carbon Dioxide 24.2 mEq/L (21.0-31.0) 05/22/17 06:00 Anion Gap 8.1 (7.0-16.0) 05/22/17 06:00 BUN 16 mg/dL (7-25) 05/22/17 06:00 Creatinine 1.3 mg/dL (0.7-1.3) 05/22/17 06:00 Est GFR ( Amer) TNP 05/22/17 06:00 Est GFR (Non-Af Amer) TNP 05/22/17 06:00 BUN/Creatinine Ratio 12.3 05/22/17 06:00 Glucose 158 mg/dL (70-105) H 05/22/17 06:00 POC Glucose 250 MG/DL (70 - 105) H 05/24/17 11:50 Whole Bld Lactic Acid 0.82 mmol/L (0.60-1.99) 05/21/17 12:55 Calcium 7.6 mg/dL (8.6-10.3) L 05/22/17 06:00 Total Bilirubin 0.2 mg/dL (0.3-1.0) L 05/21/17 12:55 AST 8 U/L (13-39) L 05/21/17 12:55 ALT 8 U/L (7-52) 05/21/17 12:55 Alkaline Phosphatase 64 U/L (34-104) 05/21/17 12:55 Creatine Kinase 63 U/L (30-223) 05/21/17 12:55 Troponin I 0.12 ng/mL (0.01-0.05) H* 05/21/17 12:55 B-Natriuretic Peptide 350.0 pg/mL (5.0-100.0) H 05/21/17 12:55 Total Protein 6.5 gm/dL (6.0-8.3) 05/21/17 12:55 Albumin 3.0 gm/dL (4.2-5.5) L 05/21/17 12:55 Globulin 3.5 gm/dL 05/21/17 12:55 Albumin/Globulin Ratio 0.9 (1.0-1.8) L 05/21/17 12:55 Triglycerides 107 mg/dL (<150) 05/22/17 06:00 Cholesterol 102 mg/dL (<200) 05/22/17 06:00 LDL Cholesterol Direct 58 mg/dL (75-193) L 05/22/17 06:00 HDL Cholesterol 29 mg/dL (23-92) 05/22/17 06:00 Amylase 32 U/L (29-103) 05/21/17 12:55 Lipase 14 U/L (11-82) 05/21/17 12:55 TSH 0.97 uIU/ml (0.34-5.60) 05/22/17 06:00 Urine Source MIDSTREAM 05/21/17 16:00 Urine Color YELLOW 05/21/17 16:00 Urine Clarity HAZY (CLEAR) 05/21/17 16:00 Urine pH 6.0 (4.6 - 8.0) 05/21/17 16:00 Ur Specific [place] 1.025 (1.005-1.030) 05/21/17 16:00 Urine Protein >=300 mg/dL (NEGATIVE) 05/21/17 16:00 Urine Glucose (UA) 250 mg/dL (NEGATIVE) H 05/21/17 16:00 Urine Ketones NEGATIVE mg/dL (NEGATIVE) 05/21/17 16:00 Urine Blood MODERATE (NEGATIVE) H 05/21/17 16:00 Urine Nitrate NEGATIVE (NEGATIVE) 05/21/17 16:00 Urine Bilirubin NEGATIVE (NEGATIVE) 05/21/17 16:00 Urine Urobilinogen 0.2 E.U./dL (0.2 - 1.0) 05/21/17 16:00 Ur Leukocyte Esterase NEGATIVE (NEGATIVE) 05/21/17 16:00 Urine RBC 5-10 /hpf (0-5) H 05/21/17 16:00 Urine WBC 2-5 /hpf (0-5) H 05/21/17 16:00 Ur Epithelial Cells NONE SEEN /lpf (FEW) 05/21/17 16:00 Urine Bacteria NONE SEEN /hpf (NONE SEEN) 05/21/17 16:00 - Physical Exam Vitals and I&O: Vital Signs Temp 99.3 F 05/24/17 04:00 Pulse 73 05/24/17 08:46 Resp 18 05/24/17 04:00 BP 170/50 05/24/17 08:46 Pulse Ox 98 05/24/17 04:00 Intake & Output 05/23/17 05/24/17 05/24/17 18:59 06:59 18:59 Intake Total 50 Balance 50 Weight (lbs) 150 lb 153 lb 8 oz Intake: Oral 50 Other: # Voids 4 # Bowel Movements 3 Active Medications: Current Medications Acetaminophen (Tylenol) 650 mg PO Q4H PRN PRN Reason: Fever > 101 Stop: 07/20/17 20:29 Last Admin: 05/23/17 21:37 Dose: 650 mg Acetaminophen (Tylenol) 650 mg PO Q4HR PRN PRN Reason: Pain (Mild) Stop: 07/20/17 21:42 Acetaminophen/Hydrocodone Bitart ([place] 5mg/325mg) 1 tab PO Q4H PRN PRN Reason: Pain (Moderate) Stop: 07/20/17 21:42 Last Admin: 05/22/17 21:06 Dose: 1 tab Amlodipine Besylate (Norvasc) 10 mg PO DAILY [facility] Stop: 07/21/17 08:59 Last Admin: 05/24/17 08:46 Dose: 10 mg Atorvastatin Calcium (Lipitor) 10 mg PO [place] PRN Reason: Protocol Stop: 07/21/17 20:59 Last Admin: 05/23/17 21:37 Dose: 10 mg Benazepril HCl (Lotensin) 20 mg PO DAILY [facility] Stop: 07/21/17 08:59 Last Admin: 05/24/17 08:45 Dose: 20 mg Bisacodyl (Dulcolax 10 Mg Supp) 10 mg RC DAILY PRN PRN Reason: Constipation Stop: 07/20/17 21:42 Clopidogrel Bisulfate (Plavix) 75 mg PO DAILY [facility] Stop: 07/21/17 12:59 Last Admin: 05/24/17 08:44 Dose: 75 mg Dextrose (D50w) 50 ml IVP PRN PRN PRN Reason: BS <70 if w/IV&not swallow Stop: 07/20/17 21:42 Dextrose (Glutose 40%) 15 gm PO PRN PRN PRN Reason: BS BELOW 70 & ABLE TO SWALLOW Stop: 07/20/17 21:42 Docusate Sodium (Colace) 100 mg PO Q12H PRN PRN Reason: Constipation Stop: 07/20/17 21:42 Finasteride (Proscar) 5 mg PO DAILY [facility] PRN Reason: Protocol Stop: 07/21/17 12:59 Last Admin: 05/24/17 08:43 Dose: 5 mg Fluticasone Propionate (Flonase) 1 spr NS DAILY [place] Stop: 07/21/17 08:59 Last Admin: 05/24/17 08:46 Dose: 1 spr Dextrose/Sodium Chloride (D5-0.45ns) 1,000 mls @ 50 mls/hr IV .Q20H [place] Stop: 07/20/17 21:59 Last Admin: 05/21/17 21:51 Dose: 50 mls/hr Levofloxacin (Levaquin Pb) 750 mg in 150 mls @ 100 mls/hr IV Q24HR [facility] Stop: 07/21/17 05:59 Last Admin: 05/24/17 06:23 Dose: 100 mls/hr Insulin Aspart (Novolog Insulin Sliding Scale) 0 units SUBQ ACHS [place] PRN Reason: Protocol Stop: 07/21/17 07:29 Last Admin: 05/24/17 07:16 Dose: Not Given Labetalol HCl (Trandate) 200 mg PO DAILY [facility] Stop: 07/22/17 08:59 Last Admin: 05/24/17 08:45 Dose: 200 mg Magnesium Hydroxide (Milk Of Magnesia) 30 ml PO DAILY PRN PRN Reason: Constipation Stop: 07/20/17 21:42 Ondansetron HCl (Zofran Odt) 4 mg PO Q6HR PRN PRN Reason: Nausea Stop: 07/20/17 21:42 Last Admin: 05/23/17 10:58 Dose: 4 mg Sodium Phosphate (Fleet Enema) 135 ml RC DAILY PRN PRN Reason: IF MOM & DULCOLAZ INEFFECTIVE Stop: 07/21/17 08:59 Tamsulosin HCl (Flomax) 0.4 mg PO DAILY [facility] Stop: 07/21/17 08:59 Last Admin: 05/24/17 08:44 Dose: 0.4 mg General: alert HEENT: NC/AT, PERRLA Neck: Supple Cardiovascular: RRR, Normal S1, Normal S2, without murmur Abdomen: soft, non-tender, non-distended, positive bowel sound Internal Medicine Assmt/Plan - Assessment Assessment: sepsis hyponatremia - Plan Plan: IVF FOR HYDRATION CONTINUE IVABX PER ID CONTINUE CURRENT PLAN OF CARE Nutritional Asmnt/Malnutr-PDOC - Dietary Evaluation Malnutrition Findings (Please click <Entered> for more info): Nutritional Asmnt/Malnutrition Start: 05/22/17 16: 34 Text: Status: Complete Freq: Document 05/22/17 16:34 LCGUSTAVOG (Rec: 05/22/17 16:56 LCGUSTAVOG [email or web address]) Nutritional Asmnt/Malnutrition Patient General Information Nutritional Screening High Risk Diagnosis sepsis, hyponatremia Pertinent Medical Hx/Surgical Hx HTN, DM, CAD, CHF, Asthma/COPD , left BKA Subjective Information Pt seen sitting in bed having lunch at the time of visit. Ivorian speaking. pt reported appetite not well, ate 50% of breakfast this morning. adjusted BMI= 26.7 considering left BKA Current Diet Order/ Nutrition Support low sodium, prosource 30ml TID Pertinent Medications d5-0.45ns, colace, novolog, lavaquin Pertinent Labs / Na 139, K 3.3, Cl 110, Glucose 158, POC 139-180, Ca 7 .6 Nutritional Hx/Data Height 5 ft 6 in Height (Calculated Centimeters) 167.6 Current Weight (lbs) 157 lb Weight (Calculated Kilograms) 71.2 Weight (Calculated Grams) 03676.0 [place] Body Weight 134 % [place] Body Weight 117 Body Mass Index (BMI) 25.3 Weight Status Overweight GI Symptoms GI Symptoms None Last BM none Difficult in: None Skin Integrity/Comment: scar to left leg d/t BKA, diabetic ulcer between 2nd and 3rd toes, darkened area to right leg Estimated Nutritional Goals BEE in Kcals: Using Current wt Calories/Kcals/Kg 27-32 Kcals Calculated 1351-8491 Protein: Using Current wt Protein g/k.2-1.4 Protein Calculated 85-99 Fluid: ml 1917-2272ml (1ml/kcal) Nutritional Problem 1. Problem Problem increased nutrition needs ( calorie and protein0 Etiology increased metabolic demand for wound healing Signs/Symptoms: diabetic ulcer Malnutrition Alert Protein-Calorie Malnutrition N/A Is there a minimum of two criteria No selected? Query Text:Check all the applicable criteria. A minimum of two criteria are recommended for diagnosis of either severe or non-severe malnutrition. Intervention/Recommendation Comments 1. Recommend [facility] low sodium diet for optimal glycemic control. Notified RN, will talk to MD. 2. Monitor PO intake, wt, labs and skin integrity 3. F/U as moderate risk in 3-5 days, 05/25-05/27, PO check 05/24 Expected Outcomes/Goals Expected Outcomes/Goals 1. PO intake to meet at least 75% of nutritional needs. 2. Wt stability, skin to remain intact, labs to improve
--- NOTE | 2017-05-24 14:55 | Infectious Disease Prog Note ---
Infectious Disease Subjective - Review of Systems Service Date: 05/24/17 Subjective: No new change, low grade fever. Influenza A is positive. Infectious Disease Objective - Results Result Diagrams: 05/22/17 06:00 05/22/17 06:00 Recent Labs: Laboratory Last Values WBC 11.9 Th/cmm (4.8-10.8) H D 05/22/17 06:00 RBC 3.32 Mil/cmm (3.80-5.80) L 05/22/17 06:00 Hgb 9.5 gm/dL (12-16) L 05/22/17 06:00 Hct 28.7 % (41.0-60) L 05/22/17 06:00 MCV 86.4 fl (80-99) 05/22/17 06:00 MCH 28.5 pg (27.0-31.0) 05/22/17 06:00 MCHC Differential 33.0 pg (28.0-36.0) 05/22/17 06:00 RDW 13.1 % (11.5-20.0) 05/22/17 06:00 Plt Count 432 Th/cmm (150-400) H 05/22/17 06:00 MPV 8.4 fl 05/22/17 06:00 Neutrophils % 72.7 % (40.0-80.0) 05/22/17 06:00 Lymphocytes % 13.4 % (20.0-50.0) L 05/22/17 06:00 Monocytes % 7.5 % (2.0-10.0) 05/22/17 06:00 Eosinophils % 6.2 % (0.0-5.0) H 05/22/17 06:00 Basophils % 0.2 % (0.0-2.0) 05/22/17 06:00 PT 11.4 SECONDS (9.5-11.5) 05/21/17 12:55 INR 1.09 (0.5-1.4) 05/21/17 12:55 PTT (Actin FS) 28.4 SECONDS (26.0-38.0) 05/21/17 12:55 Sodium 139 mEq/L (136-145) 05/22/17 06:00 Potassium 3.3 mEq/L (3.5-5.1) L 05/22/17 06:00 Chloride 110 mEq/L (98-107) H 05/22/17 06:00 Carbon Dioxide 24.2 mEq/L (21.0-31.0) 05/22/17 06:00 Anion Gap 8.1 (7.0-16.0) 05/22/17 06:00 BUN 16 mg/dL (7-25) 05/22/17 06:00 Creatinine 1.3 mg/dL (0.7-1.3) 05/22/17 06:00 Est GFR ( Amer) TNP 05/22/17 06:00 Est GFR (Non-Af Amer) TNP 05/22/17 06:00 BUN/Creatinine Ratio 12.3 05/22/17 06:00 Glucose 158 mg/dL (70-105) H 05/22/17 06:00 POC Glucose 250 MG/DL (70 - 105) H 05/24/17 11:50 Whole Bld Lactic Acid 0.82 mmol/L (0.60-1.99) 05/21/17 12:55 Calcium 7.6 mg/dL (8.6-10.3) L 05/22/17 06:00 Total Bilirubin 0.2 mg/dL (0.3-1.0) L 05/21/17 12:55 AST 8 U/L (13-39) L 05/21/17 12:55 ALT 8 U/L (7-52) 05/21/17 12:55 Alkaline Phosphatase 64 U/L (34-104) 05/21/17 12:55 Creatine Kinase 63 U/L (30-223) 05/21/17 12:55 Troponin I 0.12 ng/mL (0.01-0.05) H* 05/21/17 12:55 B-Natriuretic Peptide 350.0 pg/mL (5.0-100.0) H 05/21/17 12:55 Total Protein 6.5 gm/dL (6.0-8.3) 05/21/17 12:55 Albumin 3.0 gm/dL (4.2-5.5) L 05/21/17 12:55 Globulin 3.5 gm/dL 05/21/17 12:55 Albumin/Globulin Ratio 0.9 (1.0-1.8) L 01/02/18 12:55 Triglycerides 107 mg/dL (<150) 05/22/17 06:00 Cholesterol 102 mg/dL (<200) 05/22/17 06:00 LDL Cholesterol Direct 58 mg/dL (75-193) L 05/22/17 06:00 HDL Cholesterol 29 mg/dL (23-92) 05/22/17 06:00 Amylase 32 U/L (29-103) 05/21/17 12:55 Lipase 14 U/L (11-82) 05/21/17 12:55 TSH 0.97 uIU/ml (0.34-5.60) 05/22/17 06:00 Urine Source MIDSTREAM 05/21/17 16:00 Urine Color YELLOW 05/21/17 16:00 Urine Clarity HAZY (CLEAR) 05/21/17 16:00 Urine pH 6.0 (4.6 - 8.0) 05/21/17 16:00 Ur Specific [place] 1.025 (1.005-1.030) 05/21/17 16:00 Urine Protein >=300 mg/dL (NEGATIVE) 05/21/17 16:00 Urine Glucose (UA) 250 mg/dL (NEGATIVE) H 05/21/17 16:00 Urine Ketones NEGATIVE mg/dL (NEGATIVE) 05/21/17 16:00 Urine Blood MODERATE (NEGATIVE) H 05/21/17 16:00 Urine Nitrate NEGATIVE (NEGATIVE) 05/21/17 16:00 Urine Bilirubin NEGATIVE (NEGATIVE) 05/21/17 16:00 Urine Urobilinogen 0.2 E.U./dL (0.2 - 1.0) 05/21/17 16:00 Ur Leukocyte Esterase NEGATIVE (NEGATIVE) 05/21/17 16:00 Urine RBC 5-10 /hpf (0-5) H 05/21/17 16:00 Urine WBC 2-5 /hpf (0-5) H 05/21/17 16:00 Ur Epithelial Cells NONE SEEN /lpf (FEW) 05/21/17 16:00 Urine Bacteria NONE SEEN /hpf (NONE SEEN) 05/21/17 16:00 - Physical Exam Vitals and I&O: Vital Signs Temp 99.3 F 05/24/17 04:00 Pulse 73 05/24/17 08:46 Resp 18 05/24/17 04:00 BP 170/50 05/24/17 08:46 Pulse Ox 98 01/05/18 04:00 Intake & Output 05/23/17 05/24/17 05/24/17 18:59 06:59 18:59 Intake Total 50 Balance 50 Weight (lbs) 68.039 kg 69.626 kg Intake: Oral 50 Other: # Voids 4 # Bowel Movements 3 Active Medications: Current Medications Acetaminophen (Tylenol) 650 mg PO Q4H PRN PRN Reason: Fever > 101 Stop: 07/20/17 20:29 Last Admin: 05/23/17 21:37 Dose: 650 mg Acetaminophen (Tylenol) 650 mg PO Q4HR PRN PRN Reason: Pain (Mild) Stop: 07/20/17 21:42 Acetaminophen/Hydrocodone Bitart ([place] 5mg/325mg) 1 tab PO Q4H PRN PRN Reason: Pain (Moderate) Stop: 07/20/17 21:42 Last Admin: 05/22/17 21:06 Dose: 1 tab Amlodipine Besylate (Norvasc) 10 mg PO DAILY [facility] Stop: 07/21/17 08:59 Last Admin: 05/24/17 08:46 Dose: 10 mg Atorvastatin Calcium (Lipitor) 10 mg PO HS [facility] PRN Reason: Protocol Stop: 07/21/17 20:59 Last Admin: 05/23/17 21:37 Dose: 10 mg Benazepril HCl (Lotensin) 20 mg PO DAILY [facility] Stop: 07/21/17 08:59 Last Admin: 05/24/17 08:45 Dose: 20 mg Bisacodyl (Dulcolax 10 Mg Supp) 10 mg RC DAILY PRN PRN Reason: Constipation Stop: 07/20/17 21:42 Clopidogrel Bisulfate (Plavix) 75 mg PO DAILY [facility] Stop: 07/21/17 12:59 Last Admin: 05/24/17 08:44 Dose: 75 mg Dextrose (D50w) 50 ml IVP PRN PRN PRN Reason: BS <70 if w/IV&not swallow Stop: 07/20/17 21:42 Dextrose (Glutose 40%) 15 gm PO PRN PRN PRN Reason: BS BELOW 70 & ABLE TO SWALLOW Stop: 07/20/17 21:42 Docusate Sodium (Colace) 100 mg PO Q12H PRN PRN Reason: Constipation Stop: 07/20/17 21:42 Finasteride (Proscar) 5 mg PO DAILY [facility] PRN Reason: Protocol Stop: 07/21/17 12:59 Last Admin: 05/24/17 08:43 Dose: 5 mg Fluticasone Propionate (Flonase) 1 spr NS DAILY [facility] Stop: 07/21/17 08:59 Last Admin: 05/24/17 08:46 Dose: 1 spr Dextrose/Sodium Chloride (D5-0.45ns) 1,000 mls @ 50 mls/hr IV .Q20H [facility] Stop: 07/20/17 21:59 Last Admin: 05/24/17 12:17 Dose: 50 mls/hr Levofloxacin (Levaquin Pb) 750 mg in 150 mls @ 100 mls/hr IV Q24HR [facility] Stop: 07/21/17 05:59 Last Admin: 05/24/17 06:23 Dose: 100 mls/hr Insulin Aspart (Novolog Insulin Sliding Scale) 0 units SUBQ ACHS [facility] PRN Reason: Protocol Stop: 07/21/17 07:29 Last Admin: 05/24/17 12:20 Dose: 6 units Labetalol HCl (Trandate) 200 mg PO DAILY [facility] Stop: 07/22/17 08:59 Last Admin: 05/24/17 08:45 Dose: 200 mg Magnesium Hydroxide (Milk Of Magnesia) 30 ml PO DAILY PRN PRN Reason: Constipation Stop: 07/20/17 21:42 Ondansetron HCl (Zofran Odt) 4 mg PO Q6HR PRN PRN Reason: Nausea Stop: 07/20/17 21:42 Last Admin: 05/23/17 10:58 Dose: 4 mg Sodium Phosphate (Fleet Enema) 135 ml RC DAILY PRN PRN Reason: IF MOM & DULCOLAZ INEFFECTIVE Stop: 07/21/17 08:59 Tamsulosin HCl (Flomax) 0.4 mg PO DAILY [facility] Stop: 07/21/17 08:59 Last Admin: 05/24/17 08:44 Dose: 0.4 mg General: no acute distress, well developed, well nourished HEENT: atraumatic, normocephalic, PERRLA, EOMI, moist mucous membrane Neck: supple, no thyromegaly Cardiovascular: S1S2, regular Lungs: clear to auscultation bilaterally, clear to percussion Abdomen: soft, no tender, no distended Extremities: no cyanosis, no clubbing, no edema Neurological: awake, alert, oriented Skin: intact Infectious Disease Assmt/Plan - Assessment Assessment: 1. Sepsis. 2. UTI. 3. Diabetes mellitus type 2. 4. Hypertension. 5. Coronary artery disease. 6. CHF. 7. Asthma. 8. COPD. Recommendations: Continue levaquin. Start Tamiflu. droplet iso. Nutritional Asmnt/Malnutr-PDOC - Dietary Evaluation Malnutrition Findings (Please click <Entered> for more info): Nutritional Asmnt/Malnutrition Start: 05/22/17 16: 34 Text: Status: Complete Freq: Document 05/22/17 16:34 FRANCY (Rec: 05/22/17 16:56 FRANCY [email or web address]) Nutritional Asmnt/Malnutrition Patient General Information Nutritional Screening High Risk Diagnosis sepsis, hyponatremia Pertinent Medical Hx/Surgical Hx HTN, DM, CAD, CHF, Asthma/COPD , left BKA Subjective Information Pt seen sitting in bed having lunch at the time of visit. Romansh speaking. pt reported appetite not well, ate 50% of breakfast this morning. adjusted BMI= 26.7 considering left BKA Current Diet Order/ Nutrition Support low sodium, prosource 30ml TID Pertinent Medications d5-0.45ns, colace, novolog, lavaquin Pertinent Labs 1/3 Na 139, K 3.3, Cl 110, Glucose 158, POC 139-180, Ca 7 .6 Nutritional Hx/Data Height 1.68 m Height (Calculated Centimeters) 167.6 Current Weight (lbs) 71.214 kg Weight (Calculated Kilograms) 71.2 Weight (Calculated Grams) 11729.0 [place] Body Weight 134 % [place] Body Weight 117 Body Mass Index (BMI) 25.3 Weight Status Overweight GI Symptoms GI Symptoms None Last BM none Difficult in: None Skin Integrity/Comment: scar to left leg d/t BKA, diabetic ulcer between 2nd and 3rd toes, darkened area to right leg Estimated Nutritional Goals BEE in Kcals: Using Current wt Calories/Kcals/Kg 27-32 Kcals Calculated 9498-0824 Protein: Using Current wt Protein g/k.2-1.4 Protein Calculated 85-99 Fluid: ml 1917-2272ml (1ml/kcal) Nutritional Problem 1. Problem Problem increased nutrition needs ( calorie and protein0 Etiology increased metabolic demand for wound healing Signs/Symptoms: diabetic ulcer Malnutrition Alert Protein-Calorie Malnutrition N/A Is there a minimum of two criteria No selected? Query Text:Check all the applicable criteria. A minimum of two criteria are recommended for diagnosis of either severe or non-severe malnutrition. Intervention/Recommendation Comments 1. Recommend [facility] low sodium diet for optimal glycemic control. Notified RN, will talk to MD. 2. Monitor PO intake, wt, labs and skin integrity 3. F/U as moderate risk in 3-5 days, 05/25-05/27, PO check 05/24 Expected Outcomes/Goals Expected Outcomes/Goals 1. PO intake to meet at least 75% of nutritional needs. 2. Wt stability, skin to remain intact, labs to improve
[2017-05-24 15:23] LABS: INF B SCREEN NEG FOR INF B
[2017-05-24 15:24] LABS: INF A SCREEN POS FOR INF A
[2017-05-24 16:55] LABS: % BASOPHILS 0.2 % (0.0-2.0); % EOSINOPHILS 0.6 % (0.0-5.0); % LYMPHOCYTES 6.3 % (20.0-50.0); % MONOCYTES 9.7 % (2.0-10.0); % NEUTROPHILS 83.2 % (40.0-80.0); EOSINOPHILE ABSOLUTE 0.1 Th/cmm (0.1-0.4); HEMATOCRIT 27.6 % (41.0-60); HEMOGLOBIN 9.1 gm/dL (12-16); MEAN CORPUSCULAR HEMOGLOBIN 28.4 pg (27.0-31.0); MEAN PLATELET VOLUME 7.6 fl; MONOCYTE ABSOLUTE 1.5 Th/cmm (0.3-1.0); PLATELET COUNT 409 Th/cmm (150-400); RED BLOOD COUNT 3.21 Mil/cmm (3.80-5.80); RED CELL DISTRIBUTION WIDTH 13.4 % (11.5-20.0)
[2017-05-24 16:57] LABS: WHITE BLOOD COUNT 15.6 Th/cmm (4.8-10.8)
[2017-05-24] MEDS: Atorvastatin Calcium 10 MG TAB PO SCH (21:53)
[2017-05-25] MEDS: Levofloxacin 750mg/150mL 750 MG/150 ML BAG IV SCH (06:19)
[2017-05-25] MEDS: INSULIN ASPART SLIDING SCALE 100 UNITS/ML UNIT SUBQ SCH ×3 (06:48→17:58)
[2017-05-25 07:30] LABS: HEMATOCRIT 28.5 % (41.0-60); HEMOGLOBIN 9.5 gm/dL (12-16); LYMPHOCYTE ABSOLUTE 1.1 Th/cmm (1.5-3.0); MEAN CELL VOLUME 85.6 fl (80-99); MEAN CORPUSCULAR HEMOGLOBIN 28.6 pg (27.0-31.0); MEAN CORPUSCULAR HGB CONC 33.4 pg (28.0-36.0); MEAN PLATELET VOLUME 8.3 fl; MONOCYTE ABSOLUTE 1.4 Th/cmm (0.3-1.0); NEUTROPHILE ABSOLUTE 22.1 Th/cmm (1.8-8.0); PLATELET COUNT 418 Th/cmm (150-400); RED BLOOD COUNT 3.33 Mil/cmm (3.80-5.80); RED CELL DISTRIBUTION WIDTH 13.6 % (11.5-20.0)
[2017-05-25 07:53] LABS: ANION GAP 11.7 (7.0-16.0); BUN - UREA NITROGEN 16 mg/dL (7-25); CALCIUM SERUM 7.3 mg/dL (8.6-10.3); CARBON DIOXIDE 19.6 mEq/L (21.0-31.0); CHLORIDE 105 mEq/L (98-107); CREATININE - SERUM 1.9 mg/dL (0.7-1.3); GLUCOSE 240 mg/dL (70-105); POTASSIUM SERUM 3.3 mEq/L (3.5-5.1); SODIUM SERUM 133 mEq/L (136-145)
[2017-05-25] MEDS: Fluticasone Propionate 0.05mg/Actuation 16gm Nasal Spray NS SCH (09:00)
[2017-05-25 09:08] LABS: BAND NEUTROPHILE 11 % (0-10); LYMPHOCYTE 4 % (20-50); MONOCYTE 8 % (2-10); NEUTROPHILS 77 % (40-80); TOTAL CELLS COUNTED 100; WHITE BLOOD COUNT 24.6 Th/cmm (4.8-10.8)
[2017-05-25 09:09] LABS: PLATELET ESTIMATE ADEQUATE (NORMAL)
[2017-05-25] MEDS: D5-0.45NS 1,000 ML IV SCH (10:40)
[2017-05-25 14:27] LABS: A1C % 7.9 % (4.0-6.0)
[2017-05-25] MEDS ORDERED: Potassium Chloride 20 mEq ER Tab PO ONE (17:00)
--- NOTE | 2017-05-25 17:18 | Infectious Disease Prog Note ---
Infectious Disease Subjective - Review of Systems Service Date: 05/25/17 Subjective: No new change, low grade fever. Infectious Disease Objective - Results Result Diagrams: 05/25/17 06:57 05/25/17 06:57 Recent Labs: Laboratory Last Values WBC 24.6 Th/cmm (4.8-10.8) H* D 05/25/17 06:57 RBC 3.33 Mil/cmm (3.80-5.80) L 05/25/17 06:57 Hgb 9.5 gm/dL (12-16) L 05/25/17 06:57 Hct 28.5 % (41.0-60) L 05/25/17 06:57 MCV 85.6 fl (80-99) 05/25/17 06:57 MCH 28.6 pg (27.0-31.0) 05/25/17 06:57 MCHC Differential 33.4 pg (28.0-36.0) 05/25/17 06:57 RDW 13.6 % (11.5-20.0) 05/25/17 06:57 Plt Count 418 Th/cmm (150-400) H 05/25/17 06:57 MPV 8.3 fl 05/25/17 06:57 Neutrophils % 83.2 % (40.0-80.0) H 05/24/17 16:49 Band Neutrophils % 11 % (0-10) H 05/25/17 06:57 Lymphocytes % 6.3 % (20.0-50.0) L 05/24/17 16:49 Monocytes % 9.7 % (2.0-10.0) 05/24/17 16:49 Eosinophils % 0.6 % (0.0-5.0) 05/24/17 16:49 Basophils % 0.2 % (0.0-2.0) 05/24/17 16:49 Neutrophils (Manual) 77 % (40-80) 05/25/17 06:57 Lymphocytes 4 % (20-50) L 05/25/17 06:57 Monocytes 8 % (2-10) 05/25/17 06:57 Platelet Estimate ADEQUATE (NORMAL) 05/25/17 06:57 PT 11.4 SECONDS (9.5-11.5) 05/21/17 12:55 INR 1.09 (0.5-1.4) 05/21/17 12:55 PTT (Actin FS) 28.4 SECONDS (26.0-38.0) 05/21/17 12:55 Sodium 133 mEq/L (136-145) L 05/25/17 06:57 Potassium 3.3 mEq/L (3.5-5.1) L 05/25/17 06:57 Chloride 105 mEq/L (98-107) 05/25/17 06:57 Carbon Dioxide 19.6 mEq/L (21.0-31.0) L 05/25/17 06:57 Anion Gap 11.7 (7.0-16.0) 05/25/17 06:57 BUN 16 mg/dL (7-25) 05/25/17 06:57 Creatinine 1.9 mg/dL (0.7-1.3) H 05/25/17 06:57 Est GFR ( Amer) TNP 05/25/17 06:57 Est GFR (Non-Af Amer) TNP 05/25/17 06:57 BUN/Creatinine Ratio 8.4 05/25/17 06:57 Glucose 240 mg/dL (70-105) H 05/25/17 06:57 POC Glucose 149 MG/DL (70 - 105) H 05/25/17 10:34 Hemoglobin A1c % 7.9 % (4.0-6.0) H 05/25/17 06:56 Whole Bld Lactic Acid 0.82 mmol/L (0.60-1.99) 05/21/17 12:55 Calcium 7.3 mg/dL (8.6-10.3) L 05/25/17 06:57 Total Bilirubin 0.2 mg/dL (0.3-1.0) L 05/21/17 12:55 AST 8 U/L (13-39) L 05/21/17 12:55 ALT 8 U/L (7-52) 05/21/17 12:55 Alkaline Phosphatase 64 U/L (34-104) 05/21/17 12:55 Creatine Kinase 63 U/L (30-223) 05/21/17 12:55 Troponin I 0.12 ng/mL (0.01-0.05) H* 05/21/17 12:55 B-Natriuretic Peptide 350.0 pg/mL (5.0-100.0) H 05/21/17 12:55 Total Protein 6.5 gm/dL (6.0-8.3) 05/21/17 12:55 Albumin 3.0 gm/dL (4.2-5.5) L 05/21/17 12:55 Globulin 3.5 gm/dL 05/21/17 12:55 Albumin/Globulin Ratio 0.9 (1.0-1.8) L 05/21/17 12:55 Triglycerides 107 mg/dL (<150) 05/22/17 06:00 Cholesterol 102 mg/dL (<200) 05/22/17 06:00 LDL Cholesterol Direct 58 mg/dL (75-193) L 05/22/17 06:00 HDL Cholesterol 29 mg/dL (23-92) 05/22/17 06:00 Amylase 32 U/L (29-103) 05/21/17 12:55 Lipase 14 U/L (11-82) 05/21/17 12:55 TSH 0.97 uIU/ml (0.34-5.60) 05/22/17 06:00 Urine Source MIDSTREAM 05/21/17 16:00 Urine Color YELLOW 05/21/17 16:00 Urine Clarity HAZY (CLEAR) 05/21/17 16:00 Urine pH 6.0 (4.6 - 8.0) 05/21/17 16:00 Ur Specific [place] 1.025 (1.005-1.030) 05/21/17 16:00 Urine Protein >=300 mg/dL (NEGATIVE) 05/21/17 16:00 Urine Glucose (UA) 250 mg/dL (NEGATIVE) H 05/21/17 16:00 Urine Ketones NEGATIVE mg/dL (NEGATIVE) 05/21/17 16:00 Urine Blood MODERATE (NEGATIVE) H 05/21/17 16:00 Urine Nitrate NEGATIVE (NEGATIVE) 05/21/17 16:00 Urine Bilirubin NEGATIVE (NEGATIVE) 05/21/17 16:00 Urine Urobilinogen 0.2 E.U./dL (0.2 - 1.0) 05/21/17 16:00 Ur Leukocyte Esterase NEGATIVE (NEGATIVE) 05/21/17 16:00 Urine RBC 5-10 /hpf (0-5) H 05/21/17 16:00 Urine WBC 2-5 /hpf (0-5) H 05/21/17 16:00 Ur Epithelial Cells NONE SEEN /lpf (FEW) 05/21/17 16:00 Urine Bacteria NONE SEEN /hpf (NONE SEEN) 05/21/17 16:00 Influenza A (Rapid) POS FOR INF A H 05/24/17 14:30 Influenza B (Rapid) NEG FOR INF B 05/24/17 14:30 - Physical Exam Vitals and I&O: Vital Signs Temp 98.0 F 05/25/17 15:25 Pulse 86 05/25/17 15:25 Resp 19 05/25/17 15:25 BP 121/46 05/25/17 15:25 Pulse Ox 95 05/25/17 15:25 Intake & Output 05/24/17 05/25/17 05/25/17 18:59 06:59 18:59 Intake Total 600 1407.5 92.5 Balance 600 1407.5 92.5 Weight (lbs) 69.4 kg 67.585 kg Intake: Intake, IV Amount 1207.5 92.5 D5-0.45NS 1,000 ml @ 50 907.5 92.5 mls/hr IV .Q20H [facility] Rx#: [id number] Levofloxacin 750mg/150mL 300 750 mg In 150 ml @ 100 mls/hr IV Q24HR [facility] Rx#: [id number] Oral 600 200 Other: # Voids 3 2 # Bowel Movements 1 Active Medications: Current Medications Acetaminophen (Tylenol) 650 mg PO Q4H PRN PRN Reason: Fever > 101 Stop: 07/20/17 20:29 Last Admin: 05/25/17 00:14 Dose: 650 mg Acetaminophen (Tylenol) 650 mg PO Q4HR PRN PRN Reason: Pain (Mild) Stop: 07/20/17 21:42 Acetaminophen/Hydrocodone Bitart ([place] 5mg/325mg) 1 tab PO Q4H PRN PRN Reason: Pain (Moderate) Stop: 07/20/17 21:42 Last Admin: 05/22/17 21:06 Dose: 1 tab Amlodipine Besylate (Norvasc) 10 mg PO DAILY [facility] Stop: 07/21/17 08:59 Last Admin: 05/25/17 09:02 Dose: Not Given Atorvastatin Calcium (Lipitor) 10 mg PO HS [facility] PRN Reason: Protocol Stop: 07/21/17 20:59 Last Admin: 05/24/17 21:53 Dose: 10 mg Benazepril HCl (Lotensin) 20 mg PO DAILY [facility] Stop: 07/21/17 08:59 Last Admin: 05/25/17 09:01 Dose: Not Given Bisacodyl (Dulcolax 10 Mg Supp) 10 mg RC DAILY [facility]N PRN Reason: Constipation Stop: 07/20/17 21:42 Clopidogrel Bisulfate (Plavix) 75 mg PO DAILY [facility] Stop: 07/21/17 12:59 Last Admin: 05/25/17 09:00 Dose: 75 mg Dextrose (D50w) 50 ml IVP PRN PRN PRN Reason: BS <70 if w/IV&not swallow Stop: 07/20/17 21:42 Dextrose (Glutose 40%) 15 gm PO PRN PRN PRN Reason: BS BELOW 70 & ABLE TO SWALLOW Stop: 07/20/17 21:42 Docusate Sodium (Colace) 100 mg PO Q12H PRN PRN Reason: Constipation Stop: 07/20/17 21:42 Finasteride (Proscar) 5 mg PO DAILY [facility] PRN Reason: Protocol Stop: 07/21/17 12:59 Last Admin: 05/25/17 09:01 Dose: 5 mg Fluticasone Propionate (Flonase) 1 spr NS DAILY [facility] Stop: 07/21/17 08:59 Last Admin: 05/25/17 09:00 Dose: 1 spr Dextrose/Sodium Chloride (D5-0.45ns) 1,000 mls @ 50 mls/hr IV .Q20H [facility] Stop: 07/20/17 21:59 Last Admin: 05/25/17 10:40 Dose: 50 mls/hr Levofloxacin (Levaquin Pb) 750 mg in 150 mls @ 100 mls/hr IV Q24HR [facility] Stop: 07/21/17 05:59 Last Infusion: 05/25/17 06:26 Dose: Infused Insulin Aspart (Novolog Insulin Sliding Scale) 0 units SUBQ ACHS [facility] PRN Reason: Protocol Stop: 07/21/17 07:29 Last Admin: 05/25/17 10:39 Dose: Not Given Labetalol HCl (Trandate) 200 mg PO DAILY [facility] Stop: 07/22/17 08:59 Last Admin: 05/25/17 09:00 Dose: Not Given Magnesium Hydroxide (Milk Of Magnesia) 30 ml PO DAILY PRN PRN Reason: Constipation Stop: 07/20/17 21:42 Ondansetron HCl (Zofran Odt) 4 mg PO Q6HR PRN PRN Reason: Nausea Stop: 07/20/17 21:42 Last Admin: 05/23/17 10:58 Dose: 4 mg Oseltamivir Phosphate (Tamiflu) 75 mg PO BID [facility] Stop: 05/29/17 09:01 Last Admin: 05/25/17 11:29 Dose: 75 mg Sodium Phosphate (Fleet Enema) 135 ml RC DAILY PRN PRN Reason: IF MOM & DULCOLAZ INEFFECTIVE Stop: 07/21/17 08:59 Tamsulosin HCl (Flomax) 0.4 mg PO DAILY [facility] Stop: 07/21/17 08:59 Last Admin: 05/25/17 09:00 Dose: 0.4 mg General: no acute distress, well developed, well nourished HEENT: atraumatic, normocephalic, PERRLA, EOMI, moist mucous membrane Neck: supple, no thyromegaly Cardiovascular: S1S2, regular Lungs: clear to auscultation bilaterally, clear to percussion Abdomen: soft, no tender, no distended, no mass, no hepatomegaly Extremities: no cyanosis, no clubbing, no edema Neurological: awake, alert, oriented Skin: intact Infectious Disease Assmt/Plan - Assessment Assessment: 1. Sepsis. 2. UTI. 3. Diabetes mellitus type 2. 4. Hypertension. 5. Coronary artery disease. 6. CHF. 7. Asthma. 8. COPD. 9. influenza A Recommendations: Continue levaquin and tamiflu D2/5. Nutritional Asmnt/Malnutr-PDOC - Dietary Evaluation Malnutrition Findings (Please click <Entered> for more info): Nutritional Asmnt/Malnutrition Start: 05/22/17 16: 34 Text: Status: Complete Freq: Document 05/22/17 16:34 [email or web address] (Rec: 05/22/17 16:56 [email or web address] [email or web address]) Nutritional Asmnt/Malnutrition Patient General Information Nutritional Screening High Risk Diagnosis sepsis, hyponatremia Pertinent Medical Hx/Surgical Hx HTN, DM, CAD, CHF, Asthma/COPD , left BKA Subjective Information Pt seen sitting in bed having lunch at the time of visit. Jordanian speaking. pt reported appetite not well, ate 50% of breakfast this morning. adjusted BMI= 26.7 considering left BKA Current Diet Order/ Nutrition Support low sodium, prosource 30ml TID Pertinent Medications d5-0.45ns, colace, novolog, lavaquin Pertinent Labs 05/22 Na 139, K 3.3, Cl 110, Glucose 158, POC 139-180, Ca 7 .6 Nutritional Hx/Data Height 1.68 m Height (Calculated Centimeters) 167.6 Current Weight (lbs) 71.214 kg Weight (Calculated Kilograms) 71.2 Weight (Calculated Grams) 84721.0 [place] Body Weight 134 % [place] Body Weight 117 Body Mass Index (BMI) 25.3 Weight Status Overweight GI Symptoms GI Symptoms None Last BM none Difficult in: None Skin Integrity/Comment: scar to left leg d/t BKA, diabetic ulcer between 2nd and 3rd toes, darkened area to right leg Estimated Nutritional Goals BEE in Kcals: Using Current wt Calories/Kcals/Kg 27-32 Kcals Calculated 4386-6170 Protein: Using Current wt Protein g/k.2-1.4 Protein Calculated 85-99 Fluid: ml 1917-2272ml (1ml/kcal) Nutritional Problem 1. Problem Problem increased nutrition needs ( calorie and protein0 Etiology increased metabolic demand for wound healing Signs/Symptoms: diabetic ulcer Malnutrition Alert Protein-Calorie Malnutrition N/A Is there a minimum of two criteria No selected? Query Text:Check all the applicable criteria. A minimum of two criteria are recommended for diagnosis of either severe or non-severe malnutrition. Intervention/Recommendation Comments 1. Recommend [facility] low sodium diet for optimal glycemic control. Notified RN, will talk to MD. 2. Monitor PO intake, wt, labs and skin integrity 3. F/U as moderate risk in 3-5 days, 05/25-05/27, PO check 05/24 Expected Outcomes/Goals Expected Outcomes/Goals 1. PO intake to meet at least 75% of nutritional needs. 2. Wt stability, skin to remain intact, labs to improve
[2017-05-25] MEDS: Atorvastatin Calcium 10 MG TAB PO SCH (21:39)
--- NOTE | 2017-05-25 22:33 | Progress Notes ---
DATE: 05/25/2017 SUBJECTIVE: The patient was seen in his room lying in his bed. The patient denies any pain or discomfort at this time. Appears to be comfortable, in no acute distress. OBJECTIVE: VITAL SIGNS: Temperature 98.5, heart rate of 85, blood pressure is 135/54, respiration of 20, 100% on room air. HEENT: Head is atraumatic, normocephalic. Eyes, bilateral conjunctivae are clear. Bilateral pupils are equally round and reactive. NECK: Supple. No JVD. CARDIOVASCULAR: S1 and S2, without murmur. PULMONARY: Clear to auscultation. GASTROINTESTINAL: Soft and nontender without guarding. Positive bowel sounds. MUSCULOSKELETAL: No clubbing, no cyanosis noted. Positive left below knee amputation. ASSESSMENT: 1. Urinary tract infection. 2. Sepsis. 3. Diabetes mellitus. 4. Congestive heart failure. 5. Chronic obstructive pulmonary disease. 6. Coronary artery disease. 7. Hypertension. 8. Below knee amputation. PLAN: We will continue current IV antibiotics. We will follow up with ID doctor to monitor the patient's condition and status and antibiotic management. We will also monitor the patient's nutritional status. Treatment plans were discussed with the patient's nurse. Treatment plans were discussed with Dr. Cerna. JOB# [id number]
[2017-05-26] MEDS: INSULIN ASPART SLIDING SCALE 100 UNITS/ML UNIT SUBQ SCH ×5 (01:44→23:07)
[2017-05-26] MEDS: Levofloxacin 750mg/150mL 750 MG/150 ML BAG IV SCH (05:02)
[2017-05-26] MEDS: D5-0.45NS 1,000 ML IV SCH (05:10)
[2017-05-26] MEDS: Hydrocodone/APAP 5mg/325mg Tab PO PRN (09:51)
[2017-05-26] MEDS: Fluticasone Propionate 0.05mg/Actuation 16gm Nasal Spray NS SCH (09:56)
--- NOTE | 2017-05-26 10:45 | General Progress Note ---
Subjective - Review of Systems Events since last encounter: no change no distress Objective - Results Result Diagrams: 05/25/17 06:57 05/25/17 06:57 Recent Labs: Laboratory Last Values WBC 24.6 Th/cmm (4.8-10.8) H* D 05/25/17 06:57 RBC 3.33 Mil/cmm (3.80-5.80) L 05/25/17 06:57 Hgb 9.5 gm/dL (12-16) L 05/25/17 06:57 Hct 28.5 % (41.0-60) L 05/25/17 06:57 MCV 85.6 fl (80-99) 05/25/17 06:57 MCH 28.6 pg (27.0-31.0) 05/25/17 06:57 MCHC Differential 33.4 pg (28.0-36.0) 05/25/17 06:57 RDW 13.6 % (11.5-20.0) 05/25/17 06:57 Plt Count 418 Th/cmm (150-400) H 05/25/17 06:57 MPV 8.3 fl 05/25/17 06:57 Neutrophils % 83.2 % (40.0-80.0) H 05/24/17 16:49 Band Neutrophils % 11 % (0-10) H 05/25/17 06:57 Lymphocytes % 6.3 % (20.0-50.0) L 05/24/17 16:49 Monocytes % 9.7 % (2.0-10.0) 05/24/17 16:49 Eosinophils % 0.6 % (0.0-5.0) 05/24/17 16:49 Basophils % 0.2 % (0.0-2.0) 05/24/17 16:49 Neutrophils (Manual) 77 % (40-80) 05/25/17 06:57 Lymphocytes 4 % (20-50) L 05/25/17 06:57 Monocytes 8 % (2-10) 05/25/17 06:57 Platelet Estimate ADEQUATE (NORMAL) 05/25/17 06:57 PT 11.4 SECONDS (9.5-11.5) 05/21/17 12:55 INR 1.09 (0.5-1.4) 05/21/17 12:55 PTT (Actin FS) 28.4 SECONDS (26.0-38.0) 05/21/17 12:55 Sodium 133 mEq/L (136-145) L 05/25/17 06:57 Potassium 3.3 mEq/L (3.5-5.1) L 05/25/17 06:57 Chloride 105 mEq/L (98-107) 05/25/17 06:57 Carbon Dioxide 19.6 mEq/L (21.0-31.0) L 05/25/17 06:57 Anion Gap 11.7 (7.0-16.0) 05/25/17 06:57 BUN 16 mg/dL (7-25) 05/25/17 06:57 Creatinine 1.9 mg/dL (0.7-1.3) H 05/25/17 06:57 Est GFR ( Amer) TNP 05/25/17 06:57 Est GFR (Non-Af Amer) TNP 05/25/17 06:57 BUN/Creatinine Ratio 8.4 05/25/17 06:57 Glucose 240 mg/dL (70-105) H 05/25/17 06:57 POC Glucose 150 MG/DL (70 - 105) H 05/26/17 05:06 Hemoglobin A1c % 7.9 % (4.0-6.0) H 05/25/17 06:56 Whole Bld Lactic Acid 0.82 mmol/L (0.60-1.99) 05/21/17 12:55 Calcium 7.3 mg/dL (8.6-10.3) L 05/25/17 06:57 Total Bilirubin 0.2 mg/dL (0.3-1.0) L 05/21/17 12:55 AST 8 U/L (13-39) L 05/21/17 12:55 ALT 8 U/L (7-52) 05/21/17 12:55 Alkaline Phosphatase 64 U/L (34-104) 05/21/17 12:55 Creatine Kinase 63 U/L (30-223) 05/21/17 12:55 Troponin I 0.12 ng/mL (0.01-0.05) H* 05/21/17 12:55 B-Natriuretic Peptide 350.0 pg/mL (5.0-100.0) H 05/21/17 12:55 Total Protein 6.5 gm/dL (6.0-8.3) 05/21/17 12:55 Albumin 3.0 gm/dL (4.2-5.5) L 05/21/17 12:55 Globulin 3.5 gm/dL 05/21/17 12:55 Albumin/Globulin Ratio 0.9 (1.0-1.8) L 05/21/17 12:55 Triglycerides 107 mg/dL (<150) 05/22/17 06:00 Cholesterol 102 mg/dL (<200) 05/22/17 06:00 LDL Cholesterol Direct 58 mg/dL (75-193) L 05/22/17 06:00 HDL Cholesterol 29 mg/dL (23-92) 05/22/17 06:00 Amylase 32 U/L (29-103) 05/21/17 12:55 Lipase 14 U/L (11-82) 05/21/17 12:55 TSH 0.97 uIU/ml (0.34-5.60) 05/22/17 06:00 Urine Source MIDSTREAM 05/21/17 16:00 Urine Color YELLOW 05/21/17 16:00 Urine Clarity HAZY (CLEAR) 05/21/17 16:00 Urine pH 6.0 (4.6 - 8.0) 05/21/17 16:00 Ur Specific [place] 1.025 (1.005-1.030) 05/21/17 16:00 Urine Protein >=300 mg/dL (NEGATIVE) 05/21/17 16:00 Urine Glucose (UA) 250 mg/dL (NEGATIVE) H 05/21/17 16:00 Urine Ketones NEGATIVE mg/dL (NEGATIVE) 05/21/17 16:00 Urine Blood MODERATE (NEGATIVE) H 05/21/17 16:00 Urine Nitrate NEGATIVE (NEGATIVE) 05/21/17 16:00 Urine Bilirubin NEGATIVE (NEGATIVE) 05/21/17 16:00 Urine Urobilinogen 0.2 E.U./dL (0.2 - 1.0) 05/21/17 16:00 Ur Leukocyte Esterase NEGATIVE (NEGATIVE) 05/21/17 16:00 Urine RBC 5-10 /hpf (0-5) H 05/21/17 16:00 Urine WBC 2-5 /hpf (0-5) H 05/21/17 16:00 Ur Epithelial Cells NONE SEEN /lpf (FEW) 05/21/17 16:00 Urine Bacteria NONE SEEN /hpf (NONE SEEN) 05/21/17 16:00 Influenza A (Rapid) POS FOR INF A H 05/24/17 14:30 Influenza B (Rapid) NEG FOR INF B 05/24/17 14:30 - Physical Exam Vitals and I&O: Vital Signs Temp 98.0 F 05/25/17 15:25 Pulse 82 05/26/17 09:56 Resp 19 05/25/17 15:25 BP 121/46 05/26/17 09:56 Pulse Ox 95 05/25/17 15:25 Intake & Output 05/25/17 05/26/17 05/26/17 18:59 06:59 18:59 Intake Total 92.5 925 Balance 92.5 925 Intake: Intake, IV Amount 92.5 925 D5-0.45NS 1,000 ml @ 50 92.5 925 mls/hr IV .Q20H [facility] Rx#: [id number] Active Medications: Current Medications Acetaminophen (Tylenol) 650 mg PO Q4H PRN PRN Reason: Fever > 101 Stop: 07/20/17 20:29 Last Admin: 05/25/17 00:14 Dose: 650 mg Acetaminophen (Tylenol) 650 mg PO Q4HR PRN PRN Reason: Pain (Mild) Stop: 07/20/17 21:42 Acetaminophen/Hydrocodone Bitart ([place] 5mg/325mg) 1 tab PO Q4H PRN PRN Reason: Pain (Moderate) Stop: 07/20/17 21:42 Last Admin: 05/26/17 09:51 Dose: 1 tab Amlodipine Besylate (Norvasc) 10 mg PO DAILY [facility] Stop: 07/21/17 08:59 Last Admin: 05/26/17 09:56 Dose: Not Given Atorvastatin Calcium (Lipitor) 10 mg PO [facility] PRN Reason: Protocol Stop: 07/21/17 20:59 Last Admin: 05/25/17 21:39 Dose: 10 mg Benazepril HCl (Lotensin) 20 mg PO DAILY [facility] Stop: 07/21/17 08:59 Last Admin: 05/26/17 09:56 Dose: Not Given Bisacodyl (Dulcolax 10 Mg Supp) 10 mg RC DAILY PRN PRN Reason: Constipation Stop: 07/20/17 21:42 Clopidogrel Bisulfate (Plavix) 75 mg PO DAILY [facility] Stop: 07/21/17 12:59 Last Admin: 05/26/17 09:51 Dose: 75 mg Dextrose (D50w) 50 ml IVP PRN PRN PRN Reason: BS <70 if w/IV&not swallow Stop: 07/20/17 21:42 Dextrose (Glutose 40%) 15 gm PO PRN PRN PRN Reason: BS BELOW 70 & ABLE TO SWALLOW Stop: 07/20/17 21:42 Docusate Sodium (Colace) 100 mg PO Q12H PRN PRN Reason: Constipation Stop: 07/20/17 21:42 Finasteride (Proscar) 5 mg PO DAILY [place] PRN Reason: Protocol Stop: 07/21/17 12:59 Last Admin: 05/26/17 09:51 Dose: 5 mg Fluticasone Propionate (Flonase) 1 spr NS DAILY [place] Stop: 07/21/17 08:59 Last Admin: 05/26/17 09:56 Dose: 1 spr Dextrose/Sodium Chloride (D5-0.45ns) 1,000 mls @ 50 mls/hr IV .Q20H [facility] Stop: 07/20/17 21:59 Last Admin: 05/26/17 05:10 Dose: 50 mls/hr Levofloxacin (Levaquin Pb) 750 mg in 150 mls @ 100 mls/hr IV Q24HR [facility] Stop: 07/21/17 05:59 Last Admin: 05/26/17 05:02 Dose: 100 mls/hr Insulin Aspart (Novolog Insulin Sliding Scale) 0 units SUBQ ACHS [place] PRN Reason: Protocol Stop: 07/21/17 07:29 Last Admin: 05/26/17 07:05 Dose: Not Given Labetalol HCl (Trandate) 200 mg PO DAILY [place] Stop: 07/22/17 08:59 Last Admin: 05/26/17 09:51 Dose: 200 mg Magnesium Hydroxide (Milk Of Magnesia) 30 ml PO DAILY PRN PRN Reason: Constipation Stop: 07/20/17 21:42 Ondansetron HCl (Zofran Odt) 4 mg PO Q6HR PRN PRN Reason: Nausea Stop: 07/20/17 21:42 Last Admin: 05/23/17 10:58 Dose: 4 mg Oseltamivir Phosphate (Tamiflu) 75 mg PO BID [facility] Stop: 05/29/17 09:01 Last Admin: 05/26/17 09:50 Dose: 75 mg Sodium Phosphate (Fleet Enema) 135 ml RC DAILY PRN PRN Reason: IF MOM & DULCOLAZ INEFFECTIVE Stop: 07/21/17 08:59 Tamsulosin HCl (Flomax) 0.4 mg PO DAILY [facility] Stop: 07/21/17 08:59 Last Admin: 05/26/17 09:55 Dose: 0.4 mg General: No acute distress HEENT: Atraumatic, PERRLA Neck: Supple Cardiovascular: Regular rate, Normal S1, Normal S2 Lungs: Clear to auscultation Assessment/Plan - Problem List Patient Problems: All Active Problems Below knee amputation status (Acute) Z89.519 CAD (coronary artery disease) (Acute) I25.10 CHF (congestive heart failure) (Acute) I50.9 COPD (chronic obstructive pulmonary disease) (Acute) Diabetes (Acute) E11.9 HTN (hypertension) (Acute) I10 Sepsis (Acute) UTI (urinary tract infection) (Acute) - Plan Plan: cpm Nutritional Asmnt/Malnutr-PDOC - Dietary Evaluation Malnutrition Findings (Please click <Entered> for more info): Nutritional Asmnt/Malnutrition Start: 05/22/17 16: 34 Text: Status: Complete Freq: Document 05/22/17 16:34 [facility] (Rec: 05/22/17 16:56 [email or web address]) Nutritional Asmnt/Malnutrition Patient General Information Nutritional Screening High Risk Diagnosis sepsis, hyponatremia Pertinent Medical Hx/Surgical Hx HTN, DM, CAD, CHF, Asthma/COPD , left BKA Subjective Information Pt seen sitting in bed having lunch at the time of visit. Urdu speaking. pt reported appetite not well, ate 50% of breakfast this morning. adjusted BMI= 26.7 considering left BKA Current Diet Order/ Nutrition Support low sodium, prosource 30ml TID Pertinent Medications d5-0.45ns, colace, novolog, lavaquin Pertinent Labs / Na 139, K 3.3, Cl 110, Glucose 158, POC 139-180, Ca 7 .6 Nutritional Hx/Data Height 1.68 m Height (Calculated Centimeters) 167.6 Current Weight (lbs) 71.214 kg Weight (Calculated Kilograms) 71.2 Weight (Calculated Grams) 45412.0 [place] Body Weight 134 % [place] Body Weight 117 Body Mass Index (BMI) 25.3 Weight Status Overweight GI Symptoms GI Symptoms None Last BM none Difficult in: None Skin Integrity/Comment: scar to left leg d/t BKA, diabetic ulcer between 2nd and 3rd toes, darkened area to right leg Estimated Nutritional Goals BEE in Kcals: Using Current wt Calories/Kcals/Kg 27-32 Kcals Calculated 5869-7203 Protein: Using Current wt Protein g/k.2-1.4 Protein Calculated 85-99 Fluid: ml 1917-2272ml (1ml/kcal) Nutritional Problem 1. Problem Problem increased nutrition needs ( calorie and protein0 Etiology increased metabolic demand for wound healing Signs/Symptoms: diabetic ulcer Malnutrition Alert Protein-Calorie Malnutrition N/A Is there a minimum of two criteria No selected? Query Text:Check all the applicable criteria. A minimum of two criteria are recommended for diagnosis of either severe or non-severe malnutrition. Intervention/Recommendation Comments 1. Recommend [facility] low sodium diet for optimal glycemic control. Notified RN, will talk to MD. 2. Monitor PO intake, wt, labs and skin integrity 3. F/U as moderate risk in 3-5 days, 05/25-05/27, PO check 05/24 Expected Outcomes/Goals Expected Outcomes/Goals 1. PO intake to meet at least 75% of nutritional needs. 2. Wt stability, skin to remain intact, labs to improve
[2017-05-26] MEDS: Atorvastatin Calcium 10 MG TAB PO SCH (21:11)
[2017-05-27] MEDS: Levofloxacin 750mg/150mL 750 MG/150 ML BAG IV SCH (07:01)
[2017-05-27] MEDS: INSULIN ASPART SLIDING SCALE 100 UNITS/ML UNIT SUBQ SCH ×4 (08:20→22:00)
[2017-05-27] MEDS: Fluticasone Propionate 0.05mg/Actuation 16gm Nasal Spray NS SCH (09:59)
--- NOTE | 2017-05-27 11:20 | Infectious Disease Prog Note ---
Infectious Disease Subjective - Review of Systems Service Date: 05/27/17 Subjective: No new change, No fever. Infectious Disease Objective - Results Result Diagrams: 05/25/17 06:57 05/25/17 06:57 Recent Labs: Laboratory Last Values WBC 24.6 Th/cmm (4.8-10.8) H* D 05/25/17 06:57 RBC 3.33 Mil/cmm (3.80-5.80) L 05/25/17 06:57 Hgb 9.5 gm/dL (12-16) L 05/25/17 06:57 Hct 28.5 % (41.0-60) L 05/25/17 06:57 MCV 85.6 fl (80-99) 05/25/17 06:57 MCH 28.6 pg (27.0-31.0) 05/25/17 06:57 MCHC Differential 33.4 pg (28.0-36.0) 05/25/17 06:57 RDW 13.6 % (11.5-20.0) 05/25/17 06:57 Plt Count 418 Th/cmm (150-400) H 05/25/17 06:57 MPV 8.3 fl 05/25/17 06:57 Neutrophils % 83.2 % (40.0-80.0) H 05/24/17 16:49 Band Neutrophils % 11 % (0-10) H 05/25/17 06:57 Lymphocytes % 6.3 % (20.0-50.0) L 05/24/17 16:49 Monocytes % 9.7 % (2.0-10.0) 05/24/17 16:49 Eosinophils % 0.6 % (0.0-5.0) 05/24/17 16:49 Basophils % 0.2 % (0.0-2.0) 05/24/17 16:49 Neutrophils (Manual) 77 % (40-80) 05/25/17 06:57 Lymphocytes 4 % (20-50) L 05/25/17 06:57 Monocytes 8 % (2-10) 05/25/17 06:57 Platelet Estimate ADEQUATE (NORMAL) 05/25/17 06:57 PT 11.4 SECONDS (9.5-11.5) 05/21/17 12:55 INR 1.09 (0.5-1.4) 05/21/17 12:55 PTT (Actin FS) 28.4 SECONDS (26.0-38.0) 05/21/17 12:55 Sodium 133 mEq/L (136-145) L 05/25/17 06:57 Potassium 3.3 mEq/L (3.5-5.1) L 05/25/17 06:57 Chloride 105 mEq/L (98-107) 05/25/17 06:57 Carbon Dioxide 19.6 mEq/L (21.0-31.0) L 05/25/17 06:57 Anion Gap 11.7 (7.0-16.0) 05/25/17 06:57 BUN 16 mg/dL (7-25) 05/25/17 06:57 Creatinine 1.9 mg/dL (0.7-1.3) H 05/25/17 06:57 Est GFR ( Amer) TNP 05/25/17 06:57 Est GFR (Non-Af Amer) TNP 05/25/17 06:57 BUN/Creatinine Ratio 8.4 05/25/17 06:57 Glucose 240 mg/dL (70-105) H 05/25/17 06:57 POC Glucose 136 MG/DL (70 - 105) H 05/27/17 07:00 Hemoglobin A1c % 7.9 % (4.0-6.0) H 05/25/17 06:56 Whole Bld Lactic Acid 0.82 mmol/L (0.60-1.99) 05/21/17 12:55 Calcium 7.3 mg/dL (8.6-10.3) L 05/25/17 06:57 Total Bilirubin 0.2 mg/dL (0.3-1.0) L 05/21/17 12:55 AST 8 U/L (13-39) L 05/21/17 12:55 ALT 8 U/L (7-52) 05/21/17 12:55 Alkaline Phosphatase 64 U/L (34-104) 05/21/17 12:55 Creatine Kinase 63 U/L (30-223) 05/21/17 12:55 Troponin I 0.12 ng/mL (0.01-0.05) H* 05/21/17 12:55 B-Natriuretic Peptide 350.0 pg/mL (5.0-100.0) H 05/21/17 12:55 Total Protein 6.5 gm/dL (6.0-8.3) 05/21/17 12:55 Albumin 3.0 gm/dL (4.2-5.5) L 05/21/17 12:55 Globulin 3.5 gm/dL 05/21/17 12:55 Albumin/Globulin Ratio 0.9 (1.0-1.8) L 05/21/17 12:55 Triglycerides 107 mg/dL (<150) 05/22/17 06:00 Cholesterol 102 mg/dL (<200) 05/22/17 06:00 LDL Cholesterol Direct 58 mg/dL (75-193) L 05/22/17 06:00 HDL Cholesterol 29 mg/dL (23-92) 05/22/17 06:00 Amylase 32 U/L (29-103) 05/21/17 12:55 Lipase 14 U/L (11-82) 05/21/17 12:55 TSH 0.97 uIU/ml (0.34-5.60) 05/22/17 06:00 Urine Source MIDSTREAM 05/21/17 16:00 Urine Color YELLOW 05/21/17 16:00 Urine Clarity HAZY (CLEAR) 05/21/17 16:00 Urine pH 6.0 (4.6 - 8.0) 05/21/17 16:00 Ur Specific [place] 1.025 (1.005-1.030) 05/21/17 16:00 Urine Protein >=300 mg/dL (NEGATIVE) 05/21/17 16:00 Urine Glucose (UA) 250 mg/dL (NEGATIVE) H 05/21/17 16:00 Urine Ketones NEGATIVE mg/dL (NEGATIVE) 05/21/17 16:00 Urine Blood MODERATE (NEGATIVE) H 05/21/17 16:00 Urine Nitrate NEGATIVE (NEGATIVE) 05/21/17 16:00 Urine Bilirubin NEGATIVE (NEGATIVE) 05/21/17 16:00 Urine Urobilinogen 0.2 E.U./dL (0.2 - 1.0) 05/21/17 16:00 Ur Leukocyte Esterase NEGATIVE (NEGATIVE) 05/21/17 16:00 Urine RBC 5-10 /hpf (0-5) H 05/21/17 16:00 Urine WBC 2-5 /hpf (0-5) H 05/21/17 16:00 Ur Epithelial Cells NONE SEEN /lpf (FEW) 05/21/17 16:00 Urine Bacteria NONE SEEN /hpf (NONE SEEN) 05/21/17 16:00 Influenza A (Rapid) POS FOR INF A H 05/24/17 14:30 Influenza B (Rapid) NEG FOR INF B 05/24/17 14:30 - Physical Exam Vitals and I&O: Vital Signs Temp 98.0 F 05/27/17 04:00 Pulse 75 05/27/17 10:00 Resp 20 05/27/17 04:00 BP 131/59 05/27/17 10:00 Pulse Ox 99 05/27/17 04:00 Intake & Output 05/26/17 05/27/17 05/27/17 18:59 06:59 18:59 Intake Total 1800 360 Output Total 450 350 Balance 1350 10 Weight (lbs) 67.585 kg 67.585 kg Intake: Oral 1800 360 Output: Urine 450 350 Other: # Voids 1 4 # Bowel Movements 2 1 Active Medications: Current Medications Acetaminophen (Tylenol) 650 mg PO Q4H PRN PRN Reason: Fever > 101 Stop: 07/20/17 20:29 Last Admin: 05/26/17 21:12 Dose: 650 mg Acetaminophen (Tylenol) 650 mg PO Q4HR PRN PRN Reason: Pain (Mild) Stop: 07/20/17 21:42 Acetaminophen/Hydrocodone Bitart ([place] 5mg/325mg) 1 tab PO Q4H PRN PRN Reason: Pain (Moderate) Stop: 07/20/17 21:42 Last Admin: 05/26/17 09:51 Dose: 1 tab Amlodipine Besylate (Norvasc) 10 mg PO DAILY [facility] Stop: 07/21/17 08:59 Last Admin: 05/27/17 09:59 Dose: 10 mg Atorvastatin Calcium (Lipitor) 10 mg PO [facility] PRN Reason: Protocol Stop: 07/21/17 20:59 Last Admin: 05/26/17 21:11 Dose: 10 mg Benazepril HCl (Lotensin) 20 mg PO DAILY [facility] Stop: 07/21/17 08:59 Last Admin: 05/27/17 09:59 Dose: 20 mg Bisacodyl (Dulcolax 10 Mg Supp) 10 mg RC DAILY PRN PRN Reason: Constipation Stop: 07/20/17 21:42 Clopidogrel Bisulfate (Plavix) 75 mg PO DAILY [facility] Stop: 07/21/17 12:59 Last Admin: 05/27/17 09:59 Dose: 75 mg Dextrose (D50w) 50 ml IVP PRN PRN PRN Reason: BS <70 if w/IV&not swallow Stop: 07/20/17 21:42 Dextrose (Glutose 40%) 15 gm PO PRN PRN PRN Reason: BS BELOW 70 & ABLE TO SWALLOW Stop: 07/20/17 21:42 Docusate Sodium (Colace) 100 mg PO Q12H PRN PRN Reason: Constipation Stop: 07/20/17 21:42 Finasteride (Proscar) 5 mg PO DAILY [facility] PRN Reason: Protocol Stop: 07/21/17 12:59 Last Admin: 05/27/17 10:00 Dose: 5 mg Fluticasone Propionate (Flonase) 1 spr NS DAILY [facility] Stop: 07/21/17 08:59 Last Admin: 05/27/17 09:59 Dose: 1 spr Dextrose/Sodium Chloride (D5-0.45ns) 1,000 mls @ 50 mls/hr IV .Q20H [facility] Stop: 07/20/17 21:59 Last Admin: 05/26/17 05:10 Dose: 50 mls/hr Levofloxacin (Levaquin Pb) 750 mg in 150 mls @ 100 mls/hr IV Q24HR [facility] Stop: 05/27/17 12:00 Last Admin: 05/27/17 07:01 Dose: 100 mls/hr Levofloxacin (Levaquin Pb) 500 mg in 100 mls @ 100 mls/hr IV Q24H [facility] Stop: 07/27/17 05:59 Levofloxacin (Levaquin Pb) 250 mg in 50 mls @ 50 mls/hr IV Q24H [facility] Stop: 07/27/17 05:59 Insulin Aspart (Novolog Insulin Sliding Scale) 0 units SUBQ ACHS [facility] PRN Reason: Protocol Stop: 07/21/17 07:29 Last Admin: 05/27/17 08:20 Dose: Not Given Labetalol HCl (Trandate) 200 mg PO DAILY [facility] Stop: 07/22/17 08:59 Last Admin: 05/27/17 10:00 Dose: 200 mg Magnesium Hydroxide (Milk Of Magnesia) 30 ml PO DAILY PRN PRN Reason: Constipation Stop: 07/20/17 21:42 Ondansetron HCl (Zofran Odt) 4 mg PO Q6HR PRN PRN Reason: Nausea Stop: 07/20/17 21:42 Last Admin: 05/23/17 10:58 Dose: 4 mg Oseltamivir Phosphate (Tamiflu) 75 mg PO BID [facility] Stop: 05/29/17 09:01 Last Admin: 05/27/17 10:01 Dose: Not Given Sodium Phosphate (Fleet Enema) 135 ml RC DAILY PRN PRN Reason: IF MOM & DULCOLAZ INEFFECTIVE Stop: 07/21/17 08:59 Tamsulosin HCl (Flomax) 0.4 mg PO DAILY [facility] Stop: 07/21/17 08:59 Last Admin: 05/27/17 10:00 Dose: 0.4 mg General: no acute distress, well developed HEENT: atraumatic, normocephalic, PERRLA Neck: supple, no thyromegaly Cardiovascular: S1S2, regular Lungs: clear to auscultation bilaterally, clear to percussion Abdomen: soft, no tender, no distended, no mass, no rebound Extremities: no cyanosis, no clubbing, no edema Neurological: awake, alert, oriented Infectious Disease Assmt/Plan - Problem List Patient Problems: All Active Problems Below knee amputation status (Acute) Z89.519 CAD (coronary artery disease) (Acute) I25.10 CHF (congestive heart failure) (Acute) I50.9 COPD (chronic obstructive pulmonary disease) (Acute) Diabetes (Acute) E11.9 HTN (hypertension) (Acute) I10 Sepsis (Acute) UTI (urinary tract infection) (Acute) - Assessment Assessment: 1. Sepsis. 2. UTI. 3. Diabetes mellitus type 2. 4. Hypertension. 5. Coronary artery disease. 6. CHF. 7. Asthma. 8. COPD. 9. influenza A Recommendations: Continue levaquin and tamiflu D3/5. Nutritional Asmnt/Malnutr-PDOC - Dietary Evaluation Malnutrition Findings (Please click <Entered> for more info): Nutritional Asmnt/Malnutrition Start: 05/22/17 16: 34 Text: Status: Complete Freq: Document 05/22/17 16:34 [facility] (Rec: 05/22/17 16:56 [facility] [email or web address]) Nutritional Asmnt/Malnutrition Patient General Information Nutritional Screening High Risk Diagnosis sepsis, hyponatremia Pertinent Medical Hx/Surgical Hx HTN, DM, CAD, CHF, Asthma/COPD , left BKA Subjective Information Pt seen sitting in bed having lunch at the time of visit. Montenegrin speaking. pt reported appetite not well, ate 50% of breakfast this morning. adjusted BMI= 26.7 considering left BKA Current Diet Order/ Nutrition Support low sodium, prosource 30ml TID Pertinent Medications d5-0.45ns, colace, novolog, lavaquin Pertinent Labs 05/22 Na 139, K 3.3, Cl 110, Glucose 158, POC 139-180, Ca 7 .6 Nutritional Hx/Data Height 1.68 m Height (Calculated Centimeters) 167.6 Current Weight (lbs) 71.214 kg Weight (Calculated Kilograms) 71.2 Weight (Calculated Grams) 51777.0 [place] Body Weight 134 % [place] Body Weight 117 Body Mass Index (BMI) 25.3 Weight Status Overweight GI Symptoms GI Symptoms None Last BM none Difficult in: None Skin Integrity/Comment: scar to left leg d/t BKA, diabetic ulcer between 2nd and 3rd toes, darkened area to right leg Estimated Nutritional Goals BEE in Kcals: Using Current wt Calories/Kcals/Kg 27-32 Kcals Calculated 6146-6761 Protein: Using Current wt Protein g/k.2-1.4 Protein Calculated 85-99 Fluid: ml 1917-2272ml (1ml/kcal) Nutritional Problem 1. Problem Problem increased nutrition needs ( calorie and protein0 Etiology increased metabolic demand for wound healing Signs/Symptoms: diabetic ulcer Malnutrition Alert Protein-Calorie Malnutrition N/A Is there a minimum of two criteria No selected? Query Text:Check all the applicable criteria. A minimum of two criteria are recommended for diagnosis of either severe or non-severe malnutrition. Intervention/Recommendation Comments 1. Recommend [facility] low sodium diet for optimal glycemic control. Notified RN, will talk to MD. 2. Monitor PO intake, wt, labs and skin integrity 3. F/U as moderate risk in 3-5 days, 05/25-05/27, PO check 05/24 Expected Outcomes/Goals Expected Outcomes/Goals 1. PO intake to meet at least 75% of nutritional needs. 2. Wt stability, skin to remain intact, labs to improve
--- NOTE | 2017-05-27 11:37 | Internal Medicine Prog Note ---
Internal Medicine Subjective - Subjective Service Date: 05/27/17 Patient seen and examined:: with staff Patient is:: awake Per staff patient has:: no adverse event, tolerating meds Internal Medicine Objective - Results Result Diagrams: 05/25/17 06:57 05/25/17 06:57 Recent Labs: Laboratory Last Values WBC 24.6 Th/cmm (4.8-10.8) H* D 05/25/17 06:57 RBC 3.33 Mil/cmm (3.80-5.80) L 05/25/17 06:57 Hgb 9.5 gm/dL (12-16) L 05/25/17 06:57 Hct 28.5 % (41.0-60) L 05/25/17 06:57 MCV 85.6 fl (80-99) 05/25/17 06:57 MCH 28.6 pg (27.0-31.0) 05/25/17 06:57 MCHC Differential 33.4 pg (28.0-36.0) 05/25/17 06:57 RDW 13.6 % (11.5-20.0) 05/25/17 06:57 Plt Count 418 Th/cmm (150-400) H 05/25/17 06:57 MPV 8.3 fl 05/25/17 06:57 Neutrophils % 83.2 % (40.0-80.0) H 05/24/17 16:49 Band Neutrophils % 11 % (0-10) H 05/25/17 06:57 Lymphocytes % 6.3 % (20.0-50.0) L 05/24/17 16:49 Monocytes % 9.7 % (2.0-10.0) 05/24/17 16:49 Eosinophils % 0.6 % (0.0-5.0) 05/24/17 16:49 Basophils % 0.2 % (0.0-2.0) 05/24/17 16:49 Neutrophils (Manual) 77 % (40-80) 05/25/17 06:57 Lymphocytes 4 % (20-50) L 05/25/17 06:57 Monocytes 8 % (2-10) 05/25/17 06:57 Platelet Estimate ADEQUATE (NORMAL) 05/25/17 06:57 PT 11.4 SECONDS (9.5-11.5) 05/21/17 12:55 INR 1.09 (0.5-1.4) 05/21/17 12:55 PTT (Actin FS) 28.4 SECONDS (26.0-38.0) 05/21/17 12:55 Sodium 133 mEq/L (136-145) L 05/25/17 06:57 Potassium 3.3 mEq/L (3.5-5.1) L 05/25/17 06:57 Chloride 105 mEq/L (98-107) 05/25/17 06:57 Carbon Dioxide 19.6 mEq/L (21.0-31.0) L 05/25/17 06:57 Anion Gap 11.7 (7.0-16.0) 05/25/17 06:57 BUN 16 mg/dL (7-25) 05/25/17 06:57 Creatinine 1.9 mg/dL (0.7-1.3) H 05/25/17 06:57 Est GFR ( Amer) TNP 05/25/17 06:57 Est GFR (Non-Af Amer) TNP 05/25/17 06:57 BUN/Creatinine Ratio 8.4 05/25/17 06:57 Glucose 240 mg/dL (70-105) H 05/25/17 06:57 POC Glucose 136 MG/DL (70 - 105) H 05/27/17 07:00 Hemoglobin A1c % 7.9 % (4.0-6.0) H 05/25/17 06:56 Whole Bld Lactic Acid 0.82 mmol/L (0.60-1.99) 05/21/17 12:55 Calcium 7.3 mg/dL (8.6-10.3) L 05/25/17 06:57 Total Bilirubin 0.2 mg/dL (0.3-1.0) L 05/21/17 12:55 AST 8 U/L (13-39) L 05/21/17 12:55 ALT 8 U/L (7-52) 05/21/17 12:55 Alkaline Phosphatase 64 U/L (34-104) 05/21/17 12:55 Creatine Kinase 63 U/L (30-223) 05/21/17 12:55 Troponin I 0.12 ng/mL (0.01-0.05) H* 05/21/17 12:55 B-Natriuretic Peptide 350.0 pg/mL (5.0-100.0) H 05/21/17 12:55 Total Protein 6.5 gm/dL (6.0-8.3) 05/21/17 12:55 Albumin 3.0 gm/dL (4.2-5.5) L 05/21/17 12:55 Globulin 3.5 gm/dL 05/21/17 12:55 Albumin/Globulin Ratio 0.9 (1.0-1.8) L 05/21/17 12:55 Triglycerides 107 mg/dL (<150) 05/22/17 06:00 Cholesterol 102 mg/dL (<200) 05/22/17 06:00 LDL Cholesterol Direct 58 mg/dL (75-193) L 05/22/17 06:00 HDL Cholesterol 29 mg/dL (23-92) 05/22/17 06:00 Amylase 32 U/L (29-103) 05/21/17 12:55 Lipase 14 U/L (11-82) 05/21/17 12:55 TSH 0.97 uIU/ml (0.34-5.60) 05/22/17 06:00 Urine Source MIDSTREAM 05/21/17 16:00 Urine Color YELLOW 05/21/17 16:00 Urine Clarity HAZY (CLEAR) 05/21/17 16:00 Urine pH 6.0 (4.6 - 8.0) 05/21/17 16:00 Ur Specific [place] 1.025 (1.005-1.030) 05/21/17 16:00 Urine Protein >=300 mg/dL (NEGATIVE) 05/21/17 16:00 Urine Glucose (UA) 250 mg/dL (NEGATIVE) H 05/21/17 16:00 Urine Ketones NEGATIVE mg/dL (NEGATIVE) 05/21/17 16:00 Urine Blood MODERATE (NEGATIVE) H 05/21/17 16:00 Urine Nitrate NEGATIVE (NEGATIVE) 05/21/17 16:00 Urine Bilirubin NEGATIVE (NEGATIVE) 05/21/17 16:00 Urine Urobilinogen 0.2 E.U./dL (0.2 - 1.0) 05/21/17 16:00 Ur Leukocyte Esterase NEGATIVE (NEGATIVE) 05/21/17 16:00 Urine RBC 5-10 /hpf (0-5) H 05/21/17 16:00 Urine WBC 2-5 /hpf (0-5) H 05/21/17 16:00 Ur Epithelial Cells NONE SEEN /lpf (FEW) 05/21/17 16:00 Urine Bacteria NONE SEEN /hpf (NONE SEEN) 05/21/17 16:00 Influenza A (Rapid) POS FOR INF A H 05/24/17 14:30 Influenza B (Rapid) NEG FOR INF B 05/24/17 14:30 - Physical Exam Vitals and I&O: Vital Signs Temp 98.0 F 05/27/17 04:00 Pulse 75 05/27/17 10:00 Resp 20 05/27/17 04:00 BP 131/59 05/27/17 10:00 Pulse Ox 99 05/27/17 04:00 Intake & Output 05/26/17 05/27/17 05/27/17 18:59 06:59 18:59 Intake Total 1800 360 Output Total 450 350 Balance 1350 10 Weight (lbs) 149 lb 149 lb Intake: Oral 1800 360 Output: Urine 450 350 Other: # Voids 1 4 # Bowel Movements 2 1 Active Medications: Current Medications Acetaminophen (Tylenol) 650 mg PO Q4H PRN PRN Reason: Fever > 101 Stop: 07/20/17 20:29 Last Admin: 05/26/17 21:12 Dose: 650 mg Acetaminophen (Tylenol) 650 mg PO Q4HR PRN PRN Reason: Pain (Mild) Stop: 07/20/17 21:42 Acetaminophen/Hydrocodone Bitart ([place] 5mg/325mg) 1 tab PO Q4H PRN PRN Reason: Pain (Moderate) Stop: 07/20/17 21:42 Last Admin: 05/26/17 09:51 Dose: 1 tab Amlodipine Besylate (Norvasc) 10 mg PO DAILY [place] Stop: 07/21/17 08:59 Last Admin: 05/27/17 09:59 Dose: 10 mg Atorvastatin Calcium (Lipitor) 10 mg PO HS [place] PRN Reason: Protocol Stop: 07/21/17 20:59 Last Admin: 05/26/17 21:11 Dose: 10 mg Benazepril HCl (Lotensin) 20 mg PO DAILY [place] Stop: 07/21/17 08:59 Last Admin: 05/27/17 09:59 Dose: 20 mg Bisacodyl (Dulcolax 10 Mg Supp) 10 mg RC DAILY PRN PRN Reason: Constipation Stop: 07/20/17 21:42 Clopidogrel Bisulfate (Plavix) 75 mg PO DAILY [facility] Stop: 07/21/17 12:59 Last Admin: 05/27/17 09:59 Dose: 75 mg Dextrose (D50w) 50 ml IVP PRN PRN PRN Reason: BS <70 if w/IV&not swallow Stop: 07/20/17 21:42 Dextrose (Glutose 40%) 15 gm PO PRN PRN PRN Reason: BS BELOW 70 & ABLE TO SWALLOW Stop: 07/20/17 21:42 Docusate Sodium (Colace) 100 mg PO Q12H PRN PRN Reason: Constipation Stop: 07/20/17 21:42 Finasteride (Proscar) 5 mg PO DAILY [place] PRN Reason: Protocol Stop: 07/21/17 12:59 Last Admin: 05/27/17 10:00 Dose: 5 mg Fluticasone Propionate (Flonase) 1 spr NS DAILY [facility] Stop: 07/21/17 08:59 Last Admin: 05/27/17 09:59 Dose: 1 spr Dextrose/Sodium Chloride (D5-0.45ns) 1,000 mls @ 50 mls/hr IV .Q20H [facility] Stop: 07/20/17 21:59 Last Admin: 05/26/17 05:10 Dose: 50 mls/hr Levofloxacin (Levaquin Pb) 750 mg in 150 mls @ 100 mls/hr IV Q24HR [facility] Stop: 05/27/17 12:00 Last Admin: 05/27/17 07:01 Dose: 100 mls/hr Levofloxacin (Levaquin Pb) 500 mg in 100 mls @ 100 mls/hr IV Q24H [facility] Stop: 07/27/17 05:59 Levofloxacin (Levaquin Pb) 250 mg in 50 mls @ 50 mls/hr IV Q24H [facility] Stop: 07/27/17 05:59 Insulin Aspart (Novolog Insulin Sliding Scale) 0 units SUBQ ACHS [place] PRN Reason: Protocol Stop: 07/21/17 07:29 Last Admin: 05/27/17 08:20 Dose: Not Given Labetalol HCl (Trandate) 200 mg PO DAILY [facility] Stop: 07/22/17 08:59 Last Admin: 05/27/17 10:00 Dose: 200 mg Magnesium Hydroxide (Milk Of Magnesia) 30 ml PO DAILY PRN PRN Reason: Constipation Stop: 07/20/17 21:42 Ondansetron HCl (Zofran Odt) 4 mg PO Q6HR PRN PRN Reason: Nausea Stop: 07/20/17 21:42 Last Admin: 05/23/17 10:58 Dose: 4 mg Oseltamivir Phosphate (Tamiflu) 75 mg PO BID [place] Stop: 05/29/17 09:01 Last Admin: 05/27/17 10:01 Dose: Not Given Sodium Phosphate (Fleet Enema) 135 ml RC DAILY PRN PRN Reason: IF MOM & DULCOLAZ INEFFECTIVE Stop: 07/21/17 08:59 Tamsulosin HCl (Flomax) 0.4 mg PO DAILY [place] Stop: 07/21/17 08:59 Last Admin: 05/27/17 10:00 Dose: 0.4 mg General: alert HEENT: NC/AT, PERRLA Neck: Supple Cardiovascular: RRR, Normal S1, Normal S2, without murmur Abdomen: soft, non-tender, non-distended, positive bowel sound Internal Medicine Assmt/Plan - Assessment Assessment: sepsis hyponatremia - Plan Plan: CONTINUE TAMIFLU IVF FOR HYDRATION CONTINUE IVABX PER ID CONTINUE CURRENT PLAN OF CARE Nutritional Asmnt/Malnutr-PDOC - Dietary Evaluation Malnutrition Findings (Please click <Entered> for more info): Nutritional Asmnt/Malnutrition Start: 05/22/17 16: 34 Text: Status: Complete Freq: Document 05/22/17 16:34 GUSTAVO (Rec: 05/22/17 16:56 [email or web address] Nutritional Asmnt/Malnutrition Patient General Information Nutritional Screening High Risk Diagnosis sepsis, hyponatremia Pertinent Medical Hx/Surgical Hx HTN, DM, CAD, CHF, Asthma/COPD , left BKA Subjective Information Pt seen sitting in bed having lunch at the time of visit. Maldivian speaking. pt reported appetite not well, ate 50% of breakfast this morning. adjusted BMI= 26.7 considering left BKA Current Diet Order/ Nutrition Support low sodium, prosource 30ml TID Pertinent Medications d5-0.45ns, colace, novolog, lavaquin Pertinent Labs 05/22 Na 139, K 3.3, Cl 110, Glucose 158, POC 139-180, Ca 7 .6 Nutritional Hx/Data Height 5 ft 6 in Height (Calculated Centimeters) 167.6 Current Weight (lbs) 157 lb Weight (Calculated Kilograms) 71.2 Weight (Calculated Grams) 19896.0 [place] Body Weight 134 % [place] Body Weight 117 Body Mass Index (BMI) 25.3 Weight Status Overweight GI Symptoms GI Symptoms None Last BM none Difficult in: None Skin Integrity/Comment: scar to left leg d/t BKA, diabetic ulcer between 2nd and 3rd toes, darkened area to right leg Estimated Nutritional Goals BEE in Kcals: Using Current wt Calories/Kcals/Kg 27-32 Kcals Calculated 2128-0901 Protein: Using Current wt Protein g/k.2-1.4 Protein Calculated 85-99 Fluid: ml 1917-2272ml (1ml/kcal) Nutritional Problem 1. Problem Problem increased nutrition needs ( calorie and protein0 Etiology increased metabolic demand for wound healing Signs/Symptoms: diabetic ulcer Malnutrition Alert Protein-Calorie Malnutrition N/A Is there a minimum of two criteria No selected? Query Text:Check all the applicable criteria. A minimum of two criteria are recommended for diagnosis of either severe or non-severe malnutrition. Intervention/Recommendation Comments 1. Recommend [facility] [place] low sodium diet for optimal glycemic control. Notified RN, will talk to MD. 2. Monitor PO intake, wt, labs and skin integrity 3. F/U as moderate risk in 3-5 days, 05/25-05/27, PO check 05/24 Expected Outcomes/Goals Expected Outcomes/Goals 1. PO intake to meet at least 75% of nutritional needs. 2. Wt stability, skin to remain intact, labs to improve
[2017-05-27 12:32] LABS: % BASOPHILS 0.2 % (0.0-2.0); % EOSINOPHILS 0.5 % (0.0-5.0); % LYMPHOCYTES 8.3 % (20.0-50.0); % MONOCYTES 6.7 % (2.0-10.0); % NEUTROPHILS 84.3 % (40.0-80.0); EOSINOPHILE ABSOLUTE 0.1 Th/cmm (0.1-0.4); HEMOGLOBIN 10.5 gm/dL (12-16); LYMPHOCYTE ABSOLUTE 1.5 Th/cmm (1.5-3.0); MEAN CELL VOLUME 86.6 fl (80-99); MEAN CORPUSCULAR HEMOGLOBIN 28.2 pg (27.0-31.0); MEAN CORPUSCULAR HGB CONC 32.6 pg (28.0-36.0); MEAN PLATELET VOLUME 7.8 fl; MONOCYTE ABSOLUTE 1.2 Th/cmm (0.3-1.0); NEUTROPHILE ABSOLUTE 15.5 Th/cmm (1.8-8.0); PLATELET COUNT 489 Th/cmm (150-400); RED BLOOD COUNT 3.74 Mil/cmm (3.80-5.80); RED CELL DISTRIBUTION WIDTH 13.6 % (11.5-20.0)
[2017-05-27 12:39] LABS: HEMATOCRIT 32.3 % (41.0-60)
[2017-05-27 12:40] LABS: WHITE BLOOD COUNT 18.3 Th/cmm (4.8-10.8)
[2017-05-27] MEDS: Atorvastatin Calcium 10 MG TAB PO SCH (21:49)
[2017-05-28] MEDS: D5-0.45NS 1,000 ML IV SCH (05:01)
[2017-05-28] MEDS ORDERED: Levofloxacin 250mg/50mL 250 MG/50 ML BAG IV SCH (06:00)
[2017-05-28] MEDS ORDERED: Levofloxacin 500mg/100mL 500 MG/100 ML BAG IV SCH (06:00)
[2017-05-28 06:33] LABS: % BASOPHILS 1.8 % (0.0-2.0); % EOSINOPHILS 0.6 % (0.0-5.0); % LYMPHOCYTES 8.4 % (20.0-50.0); % MONOCYTES 6.3 % (2.0-10.0); % NEUTROPHILS 82.9 % (40.0-80.0); BASOPHILE ABSOLUTE 0.3 Th/cumm (0-0.2); EOSINOPHILE ABSOLUTE 0.1 Th/cmm (0.1-0.4); HEMATOCRIT 29.5 % (41.0-60); HEMOGLOBIN 9.6 gm/dL (12-16); LYMPHOCYTE ABSOLUTE 1.5 Th/cmm (1.5-3.0); MEAN CELL VOLUME 86.1 fl (80-99); MEAN CORPUSCULAR HEMOGLOBIN 28.1 pg (27.0-31.0); MEAN CORPUSCULAR HGB CONC 32.7 pg (28.0-36.0); MONOCYTE ABSOLUTE 1.1 Th/cmm (0.3-1.0); NEUTROPHILE ABSOLUTE 14.6 Th/cmm (1.8-8.0); PLATELET COUNT 426 Th/cmm (150-400); RED BLOOD COUNT 3.43 Mil/cmm (3.80-5.80); RED CELL DISTRIBUTION WIDTH 13.9 % (11.5-20.0)
[2017-05-28 06:42] LABS: WHITE BLOOD COUNT 17.6 Th/cmm (4.8-10.8)
[2017-05-28] MEDS: INSULIN ASPART SLIDING SCALE 100 UNITS/ML UNIT SUBQ SCH ×4 (06:49→20:57)
[2017-05-28 06:51] LABS: ANION GAP 10.6 (7.0-16.0); BUN - UREA NITROGEN 22 mg/dL (7-25); CALCIUM SERUM 7.2 mg/dL (8.6-10.3); CARBON DIOXIDE 18.2 mEq/L (21.0-31.0); CHLORIDE 104 mEq/L (98-107); CREATININE - SERUM 2.2 mg/dL (0.7-1.3); GLUCOSE 181 mg/dL (70-105); POTASSIUM SERUM 3.8 mEq/L (3.5-5.1); SODIUM SERUM 129 mEq/L (136-145)
[2017-05-28] MEDS: Fluticasone Propionate 0.05mg/Actuation 16gm Nasal Spray NS SCH (09:17)
--- NOTE | 2017-05-28 16:15 | General Progress Note ---
Subjective - Review of Systems Events since last encounter: no change no fever Objective - Results Result Diagrams: 05/28/17 06:10 05/28/17 06:10 Recent Labs: Laboratory Last Values WBC 17.6 Th/cmm (4.8-10.8) H 05/28/17 06:10 RBC 3.43 Mil/cmm (3.80-5.80) L 05/28/17 06:10 Hgb 9.6 gm/dL (12-16) L 05/28/17 06:10 Hct 29.5 % (41.0-60) L 05/28/17 06:10 MCV 86.1 fl (80-99) 05/28/17 06:10 MCH 28.1 pg (27.0-31.0) 05/28/17 06:10 MCHC Differential 32.7 pg (28.0-36.0) 05/28/17 06:10 RDW 13.9 % (11.5-20.0) 05/28/17 06:10 Plt Count 426 Th/cmm (150-400) H 05/28/17 06:10 MPV 8.0 fl 05/28/17 06:10 Neutrophils % 82.9 % (40.0-80.0) H 05/28/17 06:10 Band Neutrophils % 11 % (0-10) H 05/25/17 06:57 Lymphocytes % 8.4 % (20.0-50.0) L 05/28/17 06:10 Monocytes % 6.3 % (2.0-10.0) 05/28/17 06:10 Eosinophils % 0.6 % (0.0-5.0) 05/28/17 06:10 Basophils % 1.8 % (0.0-2.0) 05/28/17 06:10 Neutrophils (Manual) 77 % (40-80) 05/25/17 06:57 Lymphocytes 4 % (20-50) L 05/25/17 06:57 Monocytes 8 % (2-10) 05/25/17 06:57 Platelet Estimate ADEQUATE (NORMAL) 05/25/17 06:57 PT 11.4 SECONDS (9.5-11.5) 05/21/17 12:55 INR 1.09 (0.5-1.4) 05/21/17 12:55 PTT (Actin FS) 28.4 SECONDS (26.0-38.0) 05/21/17 12:55 Sodium 129 mEq/L (136-145) L 05/28/17 06:10 Potassium 3.8 mEq/L (3.5-5.1) 05/28/17 06:10 Chloride 104 mEq/L (98-107) 05/28/17 06:10 Carbon Dioxide 18.2 mEq/L (21.0-31.0) L 05/28/17 06:10 Anion Gap 10.6 (7.0-16.0) 05/28/17 06:10 BUN 22 mg/dL (7-25) 05/28/17 06:10 Creatinine 2.2 mg/dL (0.7-1.3) H 05/28/17 06:10 Est GFR ( Amer) TNP 05/28/17 06:10 Est GFR (Non-Af Amer) TNP 05/28/17 06:10 BUN/Creatinine Ratio 10.0 05/28/17 06:10 Glucose 181 mg/dL (70-105) H 05/28/17 06:10 POC Glucose 217 MG/DL (70 - 105) H 05/28/17 12:26 Hemoglobin A1c % 7.9 % (4.0-6.0) H 05/25/17 06:56 Whole Bld Lactic Acid 0.82 mmol/L (0.60-1.99) 05/21/17 12:55 Calcium 7.2 mg/dL (8.6-10.3) L 05/28/17 06:10 Total Bilirubin 0.2 mg/dL (0.3-1.0) L 05/21/17 12:55 AST 8 U/L (13-39) L 05/21/17 12:55 ALT 8 U/L (7-52) 05/21/17 12:55 Alkaline Phosphatase 64 U/L (34-104) 05/21/17 12:55 Creatine Kinase 63 U/L (30-223) 05/21/17 12:55 Troponin I 0.12 ng/mL (0.01-0.05) H* 05/21/17 12:55 B-Natriuretic Peptide 350.0 pg/mL (5.0-100.0) H 05/21/17 12:55 Total Protein 6.5 gm/dL (6.0-8.3) 05/21/17 12:55 Albumin 3.0 gm/dL (4.2-5.5) L 05/21/17 12:55 Globulin 3.5 gm/dL 05/21/17 12:55 Albumin/Globulin Ratio 0.9 (1.0-1.8) L 05/21/17 12:55 Triglycerides 107 mg/dL (<150) 05/22/17 06:00 Cholesterol 102 mg/dL (<200) 05/22/17 06:00 LDL Cholesterol Direct 58 mg/dL (75-193) L 05/22/17 06:00 HDL Cholesterol 29 mg/dL (23-92) 05/22/17 06:00 Amylase 32 U/L (29-103) 05/21/17 12:55 Lipase 14 U/L (11-82) 05/21/17 12:55 TSH 0.97 uIU/ml (0.34-5.60) 05/22/17 06:00 Urine Source MIDSTREAM 05/21/17 16:00 Urine Color YELLOW 05/21/17 16:00 Urine Clarity HAZY (CLEAR) 05/21/17 16:00 Urine pH 6.0 (4.6 - 8.0) 05/21/17 16:00 Ur Specific [place] 1.025 (1.005-1.030) 05/21/17 16:00 Urine Protein >=300 mg/dL (NEGATIVE) 05/21/17 16:00 Urine Glucose (UA) 250 mg/dL (NEGATIVE) H 05/21/17 16:00 Urine Ketones NEGATIVE mg/dL (NEGATIVE) 05/21/17 16:00 Urine Blood MODERATE (NEGATIVE) H 05/21/17 16:00 Urine Nitrate NEGATIVE (NEGATIVE) 05/21/17 16:00 Urine Bilirubin NEGATIVE (NEGATIVE) 05/21/17 16:00 Urine Urobilinogen 0.2 E.U./dL (0.2 - 1.0) 05/21/17 16:00 Ur Leukocyte Esterase NEGATIVE (NEGATIVE) 05/21/17 16:00 Urine RBC 5-10 /hpf (0-5) H 05/21/17 16:00 Urine WBC 2-5 /hpf (0-5) H 01/02/18 16:00 Ur Epithelial Cells NONE SEEN /lpf (FEW) 05/21/17 16:00 Urine Bacteria NONE SEEN /hpf (NONE SEEN) 05/21/17 16:00 Influenza A (Rapid) POS FOR INF A H 05/24/17 14:30 Influenza B (Rapid) NEG FOR INF B 05/24/17 14:30 - Physical Exam Vitals and I&O: Vital Signs Temp 98.6 F 05/28/17 15:00 Pulse 72 05/28/17 15:00 Resp 18 05/28/17 15:00 BP 114/47 05/28/17 15:00 Pulse Ox 96 05/28/17 15:00 Intake & Output 05/27/17 05/28/17 05/28/17 18:59 06:59 18:59 Intake Total 1080 450 Output Total 450 Balance 1080 0 Weight (lbs) 67.585 kg 67.585 kg Intake: Oral 1080 450 Output: Urine 250 Emesis 200 Other: # Voids 4 3 # Bowel Movements 3 2 Active Medications: Current Medications Acetaminophen (Tylenol) 650 mg PO Q4H PRN PRN Reason: Fever > 101 Stop: 07/20/17 20:29 Last Admin: 05/26/17 21:12 Dose: 650 mg Acetaminophen (Tylenol) 650 mg PO Q4HR PRN PRN Reason: Pain (Mild) Stop: 07/20/17 21:42 Acetaminophen/Hydrocodone Bitart ([place] 5mg/325mg) 1 tab PO Q4H PRN PRN Reason: Pain (Moderate) Stop: 07/20/17 21:42 Last Admin: 05/26/17 09:51 Dose: 1 tab Amlodipine Besylate (Norvasc) 10 mg PO DAILY [facility] Stop: 07/21/17 08:59 Last Admin: 05/28/17 09:15 Dose: 10 mg Atorvastatin Calcium (Lipitor) 10 mg PO HS [facility] PRN Reason: Protocol Stop: 07/21/17 20:59 Last Admin: 05/27/17 21:49 Dose: 10 mg Benazepril HCl (Lotensin) 20 mg PO DAILY [facility] Stop: 07/21/17 08:59 Last Admin: 05/28/17 09:16 Dose: 20 mg Bisacodyl (Dulcolax 10 Mg Supp) 10 mg RC DAILY PRN PRN Reason: Constipation Stop: 07/20/17 21:42 Clopidogrel Bisulfate (Plavix) 75 mg PO DAILY [place] Stop: 07/21/17 12:59 Last Admin: 05/28/17 09:15 Dose: 75 mg Dextrose (D50w) 50 ml IVP PRN PRN PRN Reason: BS <70 if w/IV&not swallow Stop: 07/20/17 21:42 Dextrose (Glutose 40%) 15 gm PO PRN PRN PRN Reason: BS BELOW 70 & ABLE TO SWALLOW Stop: 07/20/17 21:42 Docusate Sodium (Colace) 100 mg PO Q12H PRN PRN Reason: Constipation Stop: 07/20/17 21:42 Finasteride (Proscar) 5 mg PO DAILY [place] PRN Reason: Protocol Stop: 07/21/17 12:59 Last Admin: 05/28/17 09:15 Dose: 5 mg Fluticasone Propionate (Flonase) 1 spr NS DAILY [place] Stop: 07/21/17 08:59 Last Admin: 05/28/17 09:17 Dose: 1 spr Dextrose/Sodium Chloride (D5-0.45ns) 1,000 mls @ 50 mls/hr IV .Q20H [facility] Stop: 07/20/17 21:59 Last Admin: 05/28/17 05:01 Dose: 50 mls/hr Levofloxacin (Levaquin Pb) 500 mg in 100 mls @ 100 mls/hr IV Q48HR [place] Stop: 07/27/17 05:59 Levofloxacin (Levaquin Pb) 250 mg in 50 mls @ 50 mls/hr IV Q48HR [facility] Stop: 07/27/17 05:59 Insulin Aspart (Novolog Insulin Sliding Scale) 0 units SUBQ ACHS [place] PRN Reason: Protocol Stop: 07/21/17 07:29 Last Admin: 05/28/17 12:53 Dose: 4 units Labetalol HCl (Trandate) 200 mg PO DAILY [place] Stop: 07/22/17 08:59 Last Admin: 05/28/17 09:16 Dose: 200 mg Loperamide HCl (Imodium) 2 mg PO Q8HR PRN PRN Reason: Diarrhea Stop: 07/26/17 20:12 Last Admin: 05/27/17 21:50 Dose: 2 mg Magnesium Hydroxide (Milk Of Magnesia) 30 ml PO DAILY PRN PRN Reason: Constipation Stop: 07/20/17 21:42 Miscellaneous (Clinical Monitoring) 1 ea MC DAILY PRN PRN Reason: RENAL Stop: 07/27/17 15:33 Ondansetron HCl (Zofran Odt) 4 mg PO Q6HR PRN PRN Reason: Nausea Stop: 07/20/17 21:42 Last Admin: 05/28/17 07:00 Dose: 4 mg Oseltamivir Phosphate (Tamiflu) 75 mg PO BID [place] Stop: 05/29/17 09:01 Last Admin: 05/28/17 10:59 Dose: Not Given Sodium Phosphate (Fleet Enema) 135 ml RC DAILY PRN PRN Reason: IF MOM & DULCOLAZ INEFFECTIVE Stop: 07/21/17 08:59 Tamsulosin HCl (Flomax) 0.4 mg PO DAILY [place] Stop: 07/21/17 08:59 Last Admin: 05/28/17 09:15 Dose: 0.4 mg General: No acute distress HEENT: Atraumatic, PERRLA Neck: Supple Cardiovascular: Regular rate, Normal S1, Normal S2 Lungs: Clear to auscultation Assessment/Plan - Problem List Patient Problems: All Active Problems Below knee amputation status (Acute) Z89.519 CAD (coronary artery disease) (Acute) I25.10 CHF (congestive heart failure) (Acute) I50.9 COPD (chronic obstructive pulmonary disease) (Acute) Diabetes (Acute) E11.9 HTN (hypertension) (Acute) I10 Sepsis (Acute) UTI (urinary tract infection) (Acute) - Plan Plan: cpm Nutritional Asmnt/Malnutr-PDOC - Dietary Evaluation Malnutrition Findings (Please click <Entered> for more info): Nutritional Asmnt/Malnutrition Start: 05/22/17 16: 34 Text: Status: Complete Freq: Document 05/22/17 16:34 FRANCY (Rec: 05/22/17 16:56 FRANCY [email or web address]) Nutritional Asmnt/Malnutrition Patient General Information Nutritional Screening High Risk Diagnosis sepsis, hyponatremia Pertinent Medical Hx/Surgical Hx HTN, DM, CAD, CHF, Asthma/COPD , left BKA Subjective Information Pt seen sitting in bed having lunch at the time of visit. Congolese speaking. pt reported appetite not well, ate 50% of breakfast this morning. adjusted BMI= 26.7 considering left BKA Current Diet Order/ Nutrition Support low sodium, prosource 30ml TID Pertinent Medications d5-0.45ns, colace, novolog, lavaquin Pertinent Labs 05/22 Na 139, K 3.3, Cl 110, Glucose 158, POC 139-180, Ca 7 .6 Nutritional Hx/Data Height 1.68 m Height (Calculated Centimeters) 167.6 Current Weight (lbs) 71.214 kg Weight (Calculated Kilograms) 71.2 Weight (Calculated Grams) 73353.0 [place] Body Weight 134 % [place] Body Weight 117 Body Mass Index (BMI) 25.3 Weight Status Overweight GI Symptoms GI Symptoms None Last BM none Difficult in: None Skin Integrity/Comment: scar to left leg d/t BKA, diabetic ulcer between 2nd and 3rd toes, darkened area to right leg Estimated Nutritional Goals BEE in Kcals: Using Current wt Calories/Kcals/Kg 27-32 Kcals Calculated 9641-8538 Protein: Using Current wt Protein g/k.2-1.4 Protein Calculated 85-99 Fluid: ml 1917-2272ml (1ml/kcal) Nutritional Problem 1. Problem Problem increased nutrition needs ( calorie and protein0 Etiology increased metabolic demand for wound healing Signs/Symptoms: diabetic ulcer Malnutrition Alert Protein-Calorie Malnutrition N/A Is there a minimum of two criteria No selected? Query Text:Check all the applicable criteria. A minimum of two criteria are recommended for diagnosis of either severe or non-severe malnutrition. Intervention/Recommendation Comments 1. Recommend [facility] low sodium diet for optimal glycemic control. Notified RN, will talk to MD. 2. Monitor PO intake, wt, labs and skin integrity 3. F/U as moderate risk in 3-5 days, 05/25-05/27, PO check 05/24 Expected Outcomes/Goals Expected Outcomes/Goals 1. PO intake to meet at least 75% of nutritional needs. 2. Wt stability, skin to remain intact, labs to improve
[2017-05-28] MEDS: Atorvastatin Calcium 10 MG TAB PO SCH (20:56)
[2017-05-29] MEDS: INSULIN ASPART SLIDING SCALE 100 UNITS/ML UNIT SUBQ SCH ×2 (06:38→22:41)
--- NOTE | 2017-05-29 06:48 | Consultation ---
DATE OF CONSULTATION: UROLOGY CONSULTATION REASON FOR CONSULTATION: Seen for urinary retention. HISTORY OF PRESENT ILLNESS: The patient is a 71-year-old who was admitted with respiratory problems and pneumonia. After admission, he was found to have difficulty urinating and a Nava was placed for some time, but he had it removed due to discomfort. After that, he has had episodes of incontinence and episode of retention, but keeps refusing a catheterization. We are still awaiting to do a bladder ultrasound to get a better idea about his urinary status. For the last 2-3 years, he has had difficulty urinating of and on, requiring a catheter for short durations especially when he is hospitalized once for a cardiac issue and a second time for a below-knee amputation. He has had nocturia x4-6 and one episode of UTI, treated at a hospital in [place], but denies history of bladder or kidney stones or surgeries on the urinary tract. Denies history of TURP or prostate biopsy. No history of prostate cancer. REVIEW OF SYSTEMS: Came in for nausea, vomiting, and diarrhea of 3 days' duration, which is improving. He has dizziness and weakness as well, all improving since admission. He was diagnosed with influenza on this admission with cultures. Denies history of [place] or coronary artery disease, but some kind of procedure on the heart in the past, which may be an angiogram. Denies history of stroke. Diabetes for 30 years, hypertension for many years as well. Has coronary artery disease, congestive heart failure, asthma, and COPD as well. Urologic, denies dysuria, but admits to having a few drops of blood at one point at home. No joint pains or skin rashes. Denies headache or seizures. No vision changes or hearing loss recently. HOME MEDICATIONS: Lipitor, benazepril, Dulcolax, Plavix, Colace, Proscar, and Vicodin. SOCIAL HISTORY: Denies significant smoking, alcohol, or drug use. PHYSICAL EXAMINATION: GENERAL: He is awake, alert, oriented, in no distress, not short of breath. VITAL SIGNS: Blood pressure 120/51, temperature 100, heart rate 77, saturating 97%, and respirations 18. HEAD AND NECK: Normocephalic. Trachea central. Pupils equal and reactive. No jaundice. Thyroid and lymph nodes not palpable. Carotid bruit absent. CHEST: Symmetrical. LUNGS: Clear. No rales or rhonchi. CARDIOVASCULAR: Heart sounds normal in sinus rhythm, no murmur. ABDOMEN: Soft, nontender, nondistended. No organomegaly, mass, or hernia. GENITALIA: Normal male, no scrotal masses. Meatus adequate. Rectal exam: Prostate situated higher up in the rectum, difficult to reach about 25-30 grams, smooth, benign, and nontender. No nodules. EXTREMITIES: No edema. 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 No lymphadenopathy. NEUROLOGIC: Nonfocal. Moves all 4 limbs. LABORATORY DATA: White count 17.6 down from 24.6 at its peak, hemoglobin 9.6 stable, and platelets normal. Bandemia resolved, starting at 11 two days ago. PT/INR 1.0. Sugars have been well controlled at 185, 131, and 183. Electrolytes: Sodium down to 129, BUN 22, creatinine 2.2, up from 1.9 yesterday, up from 1.3 the day before, and 1.6 on admission. Urinalysis showed 5-10 red cells, moderate amount of blood; however, I do not know whether this was taken after the Nava catheter was placed. Influenza A serology positive. Chest x-ray showed no acute abnormalities. IMPRESSION: 1. Urinary retention intermittently by history, rule out bladder outlet obstruction. We will await pre and postvoid bladder ultrasound and depending on the results, would recommend cystoscopy and possible TURP. 2. Recovering from influenza. 3. Diabetes, longstanding. 4. Hypertension. 5. Coronary artery disease. 6. Chronic obstructive pulmonary disease and asthma. Thank you for the referral. JOB# [id number]
--- NOTE | 2017-05-29 08:58 | Diagnostic Imaging Report ---
Ultrasound bladder History: Urinary retention Comparison: None Technique/procedure: Sonography of the urinary bladder was performed in multiple planes. The prevoid bladder volume is 49 mL. The patient refused to void. The urinary bladder wall measures 3 mm. IMPRESSION: No evidence of significant urinary distention. The prevoid bladder volume was 49 mL. Note the patient refused to void.
--- NOTE | 2017-05-29 09:07 | General Progress Note ---
Subjective - Review of Systems Events since last encounter: no change Objective - Results Result Diagrams: 05/28/17 06:10 05/28/17 06:10 Recent Labs: Laboratory Last Values WBC 17.6 Th/cmm (4.8-10.8) H 05/28/17 06:10 RBC 3.43 Mil/cmm (3.80-5.80) L 05/28/17 06:10 Hgb 9.6 gm/dL (12-16) L 05/28/17 06:10 Hct 29.5 % (41.0-60) L 05/28/17 06:10 MCV 86.1 fl (80-99) 05/28/17 06:10 MCH 28.1 pg (27.0-31.0) 05/28/17 06:10 MCHC Differential 32.7 pg (28.0-36.0) 05/28/17 06:10 RDW 13.9 % (11.5-20.0) 05/28/17 06:10 Plt Count 426 Th/cmm (150-400) H 05/28/17 06:10 MPV 8.0 fl 05/28/17 06:10 Neutrophils % 82.9 % (40.0-80.0) H 05/28/17 06:10 Band Neutrophils % 11 % (0-10) H 05/25/17 06:57 Lymphocytes % 8.4 % (20.0-50.0) L 05/28/17 06:10 Monocytes % 6.3 % (2.0-10.0) 05/28/17 06:10 Eosinophils % 0.6 % (0.0-5.0) 05/28/17 06:10 Basophils % 1.8 % (0.0-2.0) 05/28/17 06:10 Neutrophils (Manual) 77 % (40-80) 05/25/17 06:57 Lymphocytes 4 % (20-50) L 05/25/17 06:57 Monocytes 8 % (2-10) 05/25/17 06:57 Platelet Estimate ADEQUATE (NORMAL) 05/25/17 06:57 PT 11.4 SECONDS (9.5-11.5) 05/21/17 12:55 INR 1.09 (0.5-1.4) 05/21/17 12:55 PTT (Actin FS) 28.4 SECONDS (26.0-38.0) 05/21/17 12:55 Sodium 129 mEq/L (136-145) L 05/28/17 06:10 Potassium 3.8 mEq/L (3.5-5.1) 05/28/17 06:10 Chloride 104 mEq/L (98-107) 05/28/17 06:10 Carbon Dioxide 18.2 mEq/L (21.0-31.0) L 05/28/17 06:10 Anion Gap 10.6 (7.0-16.0) 05/28/17 06:10 BUN 22 mg/dL (7-25) 05/28/17 06:10 Creatinine 2.2 mg/dL (0.7-1.3) H 05/28/17 06:10 Est GFR ( Amer) TNP 05/28/17 06:10 Est GFR (Non-Af Amer) TNP 05/28/17 06:10 BUN/Creatinine Ratio 10.0 05/28/17 06:10 Glucose 181 mg/dL (70-105) H 05/28/17 06:10 POC Glucose 169 MG/DL (70 - 105) H 05/29/17 06:05 Hemoglobin A1c % 7.9 % (4.0-6.0) H 05/25/17 06:56 Whole Bld Lactic Acid 0.82 mmol/L (0.60-1.99) 05/21/17 12:55 Calcium 7.2 mg/dL (8.6-10.3) L 05/28/17 06:10 Total Bilirubin 0.2 mg/dL (0.3-1.0) L 05/21/17 12:55 AST 8 U/L (13-39) L 05/21/17 12:55 ALT 8 U/L (7-52) 05/21/17 12:55 Alkaline Phosphatase 64 U/L (34-104) 05/21/17 12:55 Creatine Kinase 63 U/L (30-223) 05/21/17 12:55 Troponin I 0.12 ng/mL (0.01-0.05) H* 05/21/17 12:55 B-Natriuretic Peptide 350.0 pg/mL (5.0-100.0) H 05/21/17 12:55 Total Protein 6.5 gm/dL (6.0-8.3) 05/21/17 12:55 Albumin 3.0 gm/dL (4.2-5.5) L 05/21/17 12:55 Globulin 3.5 gm/dL 05/21/17 12:55 Albumin/Globulin Ratio 0.9 (1.0-1.8) L 05/21/17 12:55 Triglycerides 107 mg/dL (<150) 05/22/17 06:00 Cholesterol 102 mg/dL (<200) 05/22/17 06:00 LDL Cholesterol Direct 58 mg/dL (75-193) L 05/22/17 06:00 HDL Cholesterol 29 mg/dL (23-92) 05/22/17 06:00 Amylase 32 U/L (29-103) 05/21/17 12:55 Lipase 14 U/L (11-82) 05/21/17 12:55 TSH 0.97 uIU/ml (0.34-5.60) 05/22/17 06:00 Urine Source MIDSTREAM 05/21/17 16:00 Urine Color YELLOW 05/21/17 16:00 Urine Clarity HAZY (CLEAR) 05/21/17 16:00 Urine pH 6.0 (4.6 - 8.0) 05/21/17 16:00 Ur Specific [place] 1.025 (1.005-1.030) 05/21/17 16:00 Urine Protein >=300 mg/dL (NEGATIVE) 05/21/17 16:00 Urine Glucose (UA) 250 mg/dL (NEGATIVE) H 05/21/17 16:00 Urine Ketones NEGATIVE mg/dL (NEGATIVE) 05/21/17 16:00 Urine Blood MODERATE (NEGATIVE) H 05/21/17 16:00 Urine Nitrate NEGATIVE (NEGATIVE) 05/21/17 16:00 Urine Bilirubin NEGATIVE (NEGATIVE) 05/21/17 16:00 Urine Urobilinogen 0.2 E.U./dL (0.2 - 1.0) 05/21/17 16:00 Ur Leukocyte Esterase NEGATIVE (NEGATIVE) 05/21/17 16:00 Urine RBC 5-10 /hpf (0-5) H 05/21/17 16:00 Urine WBC 2-5 /hpf (0-5) H 05/21/17 16:00 Ur Epithelial Cells NONE SEEN /lpf (FEW) 05/21/17 16:00 Urine Bacteria NONE SEEN /hpf (NONE SEEN) 05/21/17 16:00 Influenza A (Rapid) POS FOR INF A H 05/24/17 14:30 Influenza B (Rapid) NEG FOR INF B 05/24/17 14:30 - Physical Exam Vitals and I&O: Vital Signs Temp 99.1 F 05/29/17 03:00 Pulse 84 05/29/17 03:00 Resp 19 05/29/17 03:00 BP 125/72 05/29/17 03:00 Pulse Ox 96 05/29/17 03:00 Intake & Output 05/28/17 05/29/17 05/29/17 18:59 06:59 18:59 Intake Total 1530 10 Output Total 700 Balance 830 10 Weight (lbs) 67.585 kg 68.81 kg Intake: Oral 1530 10 Output: Urine 500 Emesis 200 Other: # Voids 3 1 # Bowel Movements 0 Active Medications: Current Medications Acetaminophen (Tylenol) 650 mg PO Q4H PRN PRN Reason: Fever > 101 Stop: 07/20/17 20:29 Last Admin: 05/26/17 21:12 Dose: 650 mg Acetaminophen (Tylenol) 650 mg PO Q4HR PRN PRN Reason: Pain (Mild) Stop: 07/20/17 21:42 Acetaminophen/Hydrocodone Bitart ([place] 5mg/325mg) 1 tab PO Q4H PRN PRN Reason: Pain (Moderate) Stop: 07/20/17 21:42 Last Admin: 05/26/17 09:51 Dose: 1 tab Amlodipine Besylate (Norvasc) 10 mg PO DAILY [facility] Stop: 07/21/17 08:59 Last Admin: 05/28/17 09:15 Dose: 10 mg Atorvastatin Calcium (Lipitor) 10 mg PO [facility] PRN Reason: Protocol Stop: 07/21/17 20:59 Last Admin: 05/28/17 20:56 Dose: 10 mg Benazepril HCl (Lotensin) 20 mg PO DAILY [facility] Stop: 07/21/17 08:59 Last Admin: 05/28/17 09:16 Dose: 20 mg Bisacodyl (Dulcolax 10 Mg Supp) 10 mg RC DAILY PRN PRN Reason: Constipation Stop: 07/20/17 21:42 Clopidogrel Bisulfate (Plavix) 75 mg PO DAILY [facility] Stop: 07/21/17 12:59 Last Admin: 05/28/17 09:15 Dose: 75 mg Dextrose (D50w) 50 ml IVP PRN PRN PRN Reason: BS <70 if w/IV&not swallow Stop: 07/20/17 21:42 Dextrose (Glutose 40%) 15 gm PO PRN PRN PRN Reason: BS BELOW 70 & ABLE TO SWALLOW Stop: 07/20/17 21:42 Docusate Sodium (Colace) 100 mg PO Q12H PRN PRN Reason: Constipation Stop: 07/20/17 21:42 Finasteride (Proscar) 5 mg PO DAILY [facility] PRN Reason: Protocol Stop: 07/21/17 12:59 Last Admin: 05/28/17 09:15 Dose: 5 mg Fluticasone Propionate (Flonase) 1 spr NS DAILY [facility] Stop: 07/21/17 08:59 Last Admin: 05/28/17 09:17 Dose: 1 spr Dextrose/Sodium Chloride (D5-0.45ns) 1,000 mls @ 50 mls/hr IV .Q20H [facility] Stop: 07/20/17 21:59 Last Admin: 05/28/17 05:01 Dose: 50 mls/hr Levofloxacin (Levaquin Pb) 500 mg in 100 mls @ 100 mls/hr IV Q48HR [facility] Stop: 07/27/17 05:59 Levofloxacin (Levaquin Pb) 250 mg in 50 mls @ 50 mls/hr IV Q48HR [facility] Stop: 07/27/17 05:59 Insulin Aspart (Novolog Insulin Sliding Scale) 0 units SUBQ ACHS [place] PRN Reason: Protocol Stop: 07/21/17 07:29 Last Admin: 05/29/17 06:38 Dose: 2 units Labetalol HCl (Trandate) 200 mg PO DAILY [facility] Stop: 07/22/17 08:59 Last Admin: 05/28/17 09:16 Dose: 200 mg Loperamide HCl (Imodium) 2 mg PO Q8HR PRN PRN Reason: Diarrhea Stop: 07/26/17 20:12 Last Admin: 05/27/17 21:50 Dose: 2 mg Magnesium Hydroxide (Milk Of Magnesia) 30 ml PO DAILY PRN PRN Reason: Constipation Stop: 07/20/17 21:42 Miscellaneous (Clinical Monitoring) 1 ea MC DAILY PRN PRN Reason: RENAL Stop: 07/27/17 15:33 Ondansetron HCl (Zofran Odt) 4 mg PO Q6HR PRN PRN Reason: Nausea Stop: 07/20/17 21:42 Last Admin: 05/29/17 06:02 Dose: 4 mg Sodium Phosphate (Fleet Enema) 135 ml RC DAILY PRN PRN Reason: IF MOM & DULCOLAZ INEFFECTIVE Stop: 07/21/17 08:59 Tamsulosin HCl (Flomax) 0.4 mg PO DAILY [facility] Stop: 07/21/17 08:59 Last Admin: 05/28/17 09:15 Dose: 0.4 mg General: No acute distress HEENT: Atraumatic, PERRLA Neck: Supple Cardiovascular: Regular rate, Normal S1, Normal S2 Lungs: Clear to auscultation Assessment/Plan - Problem List Patient Problems: All Active Problems Below knee amputation status (Acute) Z89.519 CAD (coronary artery disease) (Acute) I25.10 CHF (congestive heart failure) (Acute) I50.9 COPD (chronic obstructive pulmonary disease) (Acute) Diabetes (Acute) E11.9 HTN (hypertension) (Acute) I10 Sepsis (Acute) UTI (urinary tract infection) (Acute) - Plan Plan: cpm Nutritional Asmnt/Malnutr-PDOC - Dietary Evaluation Malnutrition Findings (Please click <Entered> for more info): Nutritional Asmnt/Malnutrition Start: 05/22/17 16: 34 Text: Status: Complete Freq: Document 05/22/17 16:34 GUSTAVO (Rec: 05/22/17 16:56 [facility] Nutritional Asmnt/Malnutrition Patient General Information Nutritional Screening High Risk Diagnosis sepsis, hyponatremia Pertinent Medical Hx/Surgical Hx HTN, DM, CAD, CHF, Asthma/COPD , left BKA Subjective Information Pt seen sitting in bed having lunch at the time of visit. Greek speaking. pt reported appetite not well, ate 50% of breakfast this morning. adjusted BMI= 26.7 considering left BKA Current Diet Order/ Nutrition Support low sodium, prosource 30ml TID Pertinent Medications d5-0.45ns, colace, novolog, lavaquin Pertinent Labs 1/3 Na 139, K 3.3, Cl 110, Glucose 158, POC 139-180, Ca 7 .6 Nutritional Hx/Data Height 1.68 m Height (Calculated Centimeters) 167.6 Current Weight (lbs) 71.214 kg Weight (Calculated Kilograms) 71.2 Weight (Calculated Grams) 29584.0 [place] Body Weight 134 % [place] Body Weight 117 Body Mass Index (BMI) 25.3 Weight Status Overweight GI Symptoms GI Symptoms None Last BM none Difficult in: None Skin Integrity/Comment: scar to left leg d/t BKA, diabetic ulcer between 2nd and 3rd toes, darkened area to right leg Estimated Nutritional Goals BEE in Kcals: Using Current wt Calories/Kcals/Kg 27-32 Kcals Calculated 2502-7119 Protein: Using Current wt Protein g/k.2-1.4 Protein Calculated 85-99 Fluid: ml 1917-2272ml (1ml/kcal) Nutritional Problem 1. Problem Problem increased nutrition needs ( calorie and protein0 Etiology increased metabolic demand for wound healing Signs/Symptoms: diabetic ulcer Malnutrition Alert Protein-Calorie Malnutrition N/A Is there a minimum of two criteria No selected? Query Text:Check all the applicable criteria. A minimum of two criteria are recommended for diagnosis of either severe or non-severe malnutrition. Intervention/Recommendation Comments 1. Recommend [facility] low sodium diet for optimal glycemic control. Notified RN, will talk to MD. 2. Monitor PO intake, wt, labs and skin integrity 3. F/U as moderate risk in 3-5 days, 05/25-05/27, PO check 05/24 Expected Outcomes/Goals Expected Outcomes/Goals 1. PO intake to meet at least 75% of nutritional needs. 2. Wt stability, skin to remain intact, labs to improve
[2017-05-29 10:43] LABS: EOSINOPHILE ABSOLUTE 0.1 Th/cmm (0.1-0.4); HEMATOCRIT 29.9 % (41.0-60); HEMOGLOBIN 10.3 gm/dL (12-16); LYMPHOCYTE ABSOLUTE 1.3 Th/cmm (1.5-3.0); MEAN CELL VOLUME 85.2 fl (80-99); MEAN CORPUSCULAR HEMOGLOBIN 29.3 pg (27.0-31.0); MEAN CORPUSCULAR HGB CONC 34.4 pg (28.0-36.0); MEAN PLATELET VOLUME 7.4 fl; MONOCYTE ABSOLUTE 2.1 Th/cmm (0.3-1.0); NEUTROPHILE ABSOLUTE 16.9 Th/cmm (1.8-8.0); PLATELET COUNT 496 Th/cmm (150-400); RED CELL DISTRIBUTION WIDTH 13.6 % (11.5-20.0)
[2017-05-29 11:03] LABS: WHITE BLOOD COUNT 20.4 Th/cmm (4.8-10.8)
[2017-05-29 11:16] LABS: ANION GAP 12.4 (7.0-16.0); BUN - UREA NITROGEN 23 mg/dL (7-25); CALCIUM SERUM 7.4 mg/dL (8.6-10.3); CHLORIDE 106 mEq/L (98-107); CREATININE - SERUM 2.3 mg/dL (0.7-1.3); GLUCOSE 157 mg/dL (70-105); POTASSIUM SERUM 3.4 mEq/L (3.5-5.1); SODIUM SERUM 131 mEq/L (136-145)
[2017-05-29] MEDS: Fluticasone Propionate 0.05mg/Actuation 16gm Nasal Spray NS SCH (17:24)
--- NOTE | 2017-05-29 20:52 | Progress Notes ---
DATE: UROLOGY PROGRESS NOTE SUBJECTIVE: The patient is voiding well, has no complaints and generally voids without difficulty, but develops intermittent retention for unexplained reasons. PHYSICAL EXAMINATION: VITAL SIGNS: On exam, blood pressure 122/55, temperature 99.2, heart rate 71, O2 saturation 98% on room air, and 18 respirations. LUNGS: The patient denies shortness of breath. ABDOMEN: Soft, nontender and nondistended. Bladder is not palpable. EXTREMITIES: No edema. LABORATORY DATA: White count increased again to 20,000. BUN 10, creatinine increased to 2.3 from baseline of 1.3. IMPRESSION: 1. Intermittent urinary retention, sounds more like a neurogenic bladder. We will continue to simply observe and defer cystoscopy at this point. 2. Acute renal failure with rising creatinine, need to rule out a nonobstructive reasons. His bladder ultrasound showed only 49 mL of prevoid volume ruling out significant retention. A urine culture came back mixed vee again ruling out significant infection. 3. Diabetes, chronic disease may be affecting renal function. 4. Peripheral vascular disease, status post below-knee amputation. 5. Coronary artery disease, chronic obstructive pulmonary disease, and recent influenza infection, which is being treated presently. JOB# [id number]
[2017-05-29] MEDS: Atorvastatin Calcium 10 MG TAB PO SCH (22:37)
[2017-05-29] MEDS: D5-0.45NS 1,000 ML IV SCH (22:38)
--- NOTE | 2017-05-29 23:55 | Infectious Disease Prog Note ---
Infectious Disease Subjective - Review of Systems Service Date: 05/29/17 Subjective: No new change, No fever. Infectious Disease Objective - Results Result Diagrams: 05/29/17 10:35 05/29/17 10:35 Recent Labs: Laboratory Last Values WBC 20.4 Th/cmm (4.8-10.8) H* 05/29/17 10:35 RBC 3.50 Mil/cmm (3.80-5.80) L 05/29/17 10:35 Hgb 10.3 gm/dL (12-16) L 05/29/17 10:35 Hct 29.9 % (41.0-60) L 05/29/17 10:35 MCV 85.2 fl (80-99) 05/29/17 10:35 MCH 29.3 pg (27.0-31.0) 05/29/17 10:35 MCHC Differential 34.4 pg (28.0-36.0) 05/29/17 10:35 RDW 13.6 % (11.5-20.0) 05/29/17 10:35 Plt Count 496 Th/cmm (150-400) H 05/29/17 10:35 MPV 7.4 fl 05/29/17 10:35 Neutrophils % 82.9 % (40.0-80.0) H 05/28/17 06:10 Band Neutrophils % 11 % (0-10) H 05/25/17 06:57 Lymphocytes % 8.4 % (20.0-50.0) L 05/28/17 06:10 Monocytes % 6.3 % (2.0-10.0) 05/28/17 06:10 Eosinophils % 0.6 % (0.0-5.0) 05/28/17 06:10 Basophils % 1.8 % (0.0-2.0) 05/28/17 06:10 Neutrophils (Manual) 77 % (40-80) 05/25/17 06:57 Lymphocytes 4 % (20-50) L 05/25/17 06:57 Monocytes 8 % (2-10) 05/25/17 06:57 Platelet Estimate ADEQUATE (NORMAL) 05/25/17 06:57 PT 11.4 SECONDS (9.5-11.5) 05/21/17 12:55 INR 1.09 (0.5-1.4) 05/21/17 12:55 PTT (Actin FS) 28.4 SECONDS (26.0-38.0) 05/21/17 12:55 Sodium 131 mEq/L (136-145) L 05/29/17 10:35 Potassium 3.4 mEq/L (3.5-5.1) L 05/29/17 10:35 Chloride 106 mEq/L (98-107) 05/29/17 10:35 Carbon Dioxide 16.0 mEq/L (21.0-31.0) L 05/29/17 10:35 Anion Gap 12.4 (7.0-16.0) 05/29/17 10:35 BUN 23 mg/dL (7-25) 05/29/17 10:35 Creatinine 2.3 mg/dL (0.7-1.3) H 05/29/17 10:35 Est GFR ( Amer) TNP 05/29/17 10:35 Est GFR (Non-Af Amer) TNP 05/29/17 10:35 BUN/Creatinine Ratio 10.0 05/29/17 10:35 Glucose 157 mg/dL (70-105) H 05/29/17 10:35 POC Glucose 186 MG/DL (70 - 105) H 05/29/17 20:38 Hemoglobin A1c % 7.9 % (4.0-6.0) H 05/25/17 06:56 Whole Bld Lactic Acid 0.82 mmol/L (0.60-1.99) 05/21/17 12:55 Calcium 7.4 mg/dL (8.6-10.3) L 05/29/17 10:35 Total Bilirubin 0.2 mg/dL (0.3-1.0) L 05/21/17 12:55 AST 8 U/L (13-39) L 05/21/17 12:55 ALT 8 U/L (7-52) 05/21/17 12:55 Alkaline Phosphatase 64 U/L (34-104) 05/21/17 12:55 Creatine Kinase 63 U/L (30-223) 05/21/17 12:55 Troponin I 0.12 ng/mL (0.01-0.05) H* 05/21/17 12:55 B-Natriuretic Peptide 350.0 pg/mL (5.0-100.0) H 05/21/17 12:55 Total Protein 6.5 gm/dL (6.0-8.3) 05/21/17 12:55 Albumin 3.0 gm/dL (4.2-5.5) L 05/21/17 12:55 Globulin 3.5 gm/dL 05/21/17 12:55 Albumin/Globulin Ratio 0.9 (1.0-1.8) L 05/21/17 12:55 Triglycerides 107 mg/dL (<150) 05/22/17 06:00 Cholesterol 102 mg/dL (<200) 05/22/17 06:00 LDL Cholesterol Direct 58 mg/dL (75-193) L 05/22/17 06:00 HDL Cholesterol 29 mg/dL (23-92) 05/22/17 06:00 Amylase 32 U/L (29-103) 05/21/17 12:55 Lipase 14 U/L (11-82) 05/21/17 12:55 TSH 0.97 uIU/ml (0.34-5.60) 05/22/17 06:00 Urine Source MIDSTREAM 05/21/17 16:00 Urine Color YELLOW 05/21/17 16:00 Urine Clarity HAZY (CLEAR) 05/21/17 16:00 Urine pH 6.0 (4.6 - 8.0) 05/21/17 16:00 Ur Specific [place] 1.025 (1.005-1.030) 05/21/17 16:00 Urine Protein >=300 mg/dL (NEGATIVE) 05/21/17 16:00 Urine Glucose (UA) 250 mg/dL (NEGATIVE) H 05/21/17 16:00 Urine Ketones NEGATIVE mg/dL (NEGATIVE) 05/21/17 16:00 Urine Blood MODERATE (NEGATIVE) H 05/21/17 16:00 Urine Nitrate NEGATIVE (NEGATIVE) 05/21/17 16:00 Urine Bilirubin NEGATIVE (NEGATIVE) 05/21/17 16:00 Urine Urobilinogen 0.2 E.U./dL (0.2 - 1.0) 05/21/17 16:00 Ur Leukocyte Esterase NEGATIVE (NEGATIVE) 05/21/17 16:00 Urine RBC 5-10 /hpf (0-5) H 05/21/17 16:00 Urine WBC 2-5 /hpf (0-5) H 05/21/17 16:00 Ur Epithelial Cells NONE SEEN /lpf (FEW) 05/21/17 16:00 Urine Bacteria NONE SEEN /hpf (NONE SEEN) 05/21/17 16:00 Influenza A (Rapid) POS FOR INF A H 05/24/17 14:30 Influenza B (Rapid) NEG FOR INF B 05/24/17 14:30 - Physical Exam Vitals and I&O: Vital Signs Temp 99.1 F 05/29/17 21:00 Pulse 67 05/29/17 21:00 Resp 20 05/29/17 21:00 BP 118/43 05/29/17 21:00 Pulse Ox 98 05/29/17 21:00 Intake & Output 05/29/17 05/29/17 05/30/17 06:59 18:59 06:59 Intake Total 1010 120 Output Total 200 Balance 1010 -80 Weight (lbs) 68.81 kg 68.81 kg Intake: Intake, IV Amount 1000 D5-0.45NS 1,000 ml @ 50 1000 mls/hr IV .Q20H [facility] Rx#: [id number] Oral 10 120 Output: Urine 200 Other: # Voids 1 1 # Bowel Movements 0 Active Medications: Current Medications Acetaminophen (Tylenol) 650 mg PO Q4H PRN PRN Reason: Fever > 101 Stop: 07/20/17 20:29 Last Admin: 05/26/17 21:12 Dose: 650 mg Acetaminophen (Tylenol) 650 mg PO Q4HR PRN PRN Reason: Pain (Mild) Stop: 07/20/17 21:42 Amlodipine Besylate (Norvasc) 10 mg PO DAILY [facility] Stop: 07/21/17 08:59 Last Admin: 05/29/17 11:14 Dose: 10 mg Atorvastatin Calcium (Lipitor) 10 mg PO HS [facility] PRN Reason: Protocol Stop: 07/21/17 20:59 Last Admin: 05/29/17 22:37 Dose: 10 mg Benazepril HCl (Lotensin) 20 mg PO DAILY [facility] Stop: 07/21/17 08:59 Last Admin: 05/29/17 11:12 Dose: 20 mg Bisacodyl (Dulcolax 10 Mg Supp) 10 mg RC DAILY PRN PRN Reason: Constipation Stop: 07/20/17 21:42 Clopidogrel Bisulfate (Plavix) 75 mg PO DAILY [facility] Stop: 07/21/17 12:59 Last Admin: 05/29/17 11:13 Dose: 75 mg Dextrose (D50w) 50 ml IVP PRN PRN PRN Reason: BS <70 if w/IV&not swallow Stop: 07/20/17 21:42 Dextrose (Glutose 40%) 15 gm PO PRN PRN PRN Reason: BS BELOW 70 & ABLE TO SWALLOW Stop: 07/20/17 21:42 Docusate Sodium (Colace) 100 mg PO Q12H PRN PRN Reason: Constipation Stop: 07/20/17 21:42 Last Admin: 05/29/17 11:14 Dose: 100 mg Finasteride (Proscar) 5 mg PO DAILY [facility] PRN Reason: Protocol Stop: 07/21/17 12:59 Last Admin: 05/29/17 11:12 Dose: 5 mg Fluticasone Propionate (Flonase) 1 spr NS DAILY [facility] Stop: 07/21/17 08:59 Last Admin: 05/29/17 17:24 Dose: Not Given Dextrose/Sodium Chloride (D5-0.45ns) 1,000 mls @ 50 mls/hr IV .Q20H [facility] Stop: 07/20/17 21:59 Last Admin: 05/29/17 22:38 Dose: 50 mls/hr Levofloxacin (Levaquin Pb) 500 mg in 100 mls @ 100 mls/hr IV Q48HR [facility] Stop: 07/27/17 05:59 Levofloxacin (Levaquin Pb) 250 mg in 50 mls @ 50 mls/hr IV Q48HR [facility] Stop: 07/27/17 05:59 Insulin Aspart (Novolog Insulin Sliding Scale) 0 units SUBQ ACHS [place] PRN Reason: Protocol Stop: 07/21/17 07:29 Last Admin: 05/29/17 22:41 Dose: 2 units Labetalol HCl (Trandate) 200 mg PO DAILY [facility] Stop: 07/22/17 08:59 Last Admin: 05/29/17 11:14 Dose: 200 mg Loperamide HCl (Imodium) 2 mg PO Q8HR PRN PRN Reason: Diarrhea Stop: 07/26/17 20:12 Last Admin: 05/27/17 21:50 Dose: 2 mg Magnesium Hydroxide (Milk Of Magnesia) 30 ml PO DAILY PRN PRN Reason: Constipation Stop: 07/20/17 21:42 Miscellaneous (Clinical Monitoring) 1 ea MC DAILY PRN PRN Reason: RENAL Stop: 07/27/17 15:33 Ondansetron HCl (Zofran Odt) 4 mg PO Q6HR PRN PRN Reason: Nausea Stop: 07/20/17 21:42 Last Admin: 05/29/17 22:37 Dose: 4 mg Sodium Phosphate (Fleet Enema) 135 ml RC DAILY PRN PRN Reason: IF MOM & DULCOLAZ INEFFECTIVE Stop: 07/21/17 08:59 Tamsulosin HCl (Flomax) 0.4 mg PO DAILY [facility] Stop: 07/21/17 08:59 Last Admin: 05/29/17 11:11 Dose: 0.4 mg Infectious Disease Assmt/Plan - Problem List Patient Problems: All Active Problems Below knee amputation status (Acute) Z89.519 CAD (coronary artery disease) (Acute) I25.10 CHF (congestive heart failure) (Acute) I50.9 COPD (chronic obstructive pulmonary disease) (Acute) Diabetes (Acute) E11.9 HTN (hypertension) (Acute) I10 Sepsis (Acute) UTI (urinary tract infection) (Acute) - Assessment Assessment: 1. Sepsis. 2. UTI. 3. Diabetes mellitus type 2. 4. Hypertension. 5. Coronary artery disease. 6. CHF. 7. Asthma. 8. COPD. 9. influenza A treated. Recommendations: Continue levaquin . Nutritional Asmnt/Malnutr-PDOC - Dietary Evaluation Malnutrition Findings (Please click <Entered> for more info): Nutritional Asmnt/Malnutrition Start: 05/22/17 16: 34 Text: Status: Complete Freq: Document 05/22/17 16:34 LCHENG (Rec: 05/22/17 16:56 LCHENG [email or web address]) Nutritional Asmnt/Malnutrition Patient General Information Nutritional Screening High Risk Diagnosis sepsis, hyponatremia Pertinent Medical Hx/Surgical Hx HTN, DM, CAD, CHF, Asthma/COPD , left BKA Subjective Information Pt seen sitting in bed having lunch at the time of visit. Samoan speaking. pt reported appetite not well, ate 50% of breakfast this morning. adjusted BMI= 26.7 considering left BKA Current Diet Order/ Nutrition Support low sodium, prosource 30ml TID Pertinent Medications d5-0.45ns, colace, novolog, lavaquin Pertinent Labs 05/22 Na 139, K 3.3, Cl 110, Glucose 158, POC 139-180, Ca 7 .6 Nutritional Hx/Data Height 1.68 m Height (Calculated Centimeters) 167.6 Current Weight (lbs) 71.214 kg Weight (Calculated Kilograms) 71.2 Weight (Calculated Grams) 18260.0 [place] Body Weight 134 % [place] Body Weight 117 Body Mass Index (BMI) 25.3 Weight Status Overweight GI Symptoms GI Symptoms None Last BM none Difficult in: None Skin Integrity/Comment: scar to left leg d/t BKA, diabetic ulcer between 2nd and 3rd toes, darkened area to right leg Estimated Nutritional Goals BEE in Kcals: Using Current wt Calories/Kcals/Kg 27-32 Kcals Calculated 2104-3872 Protein: Using Current wt Protein g/k.2-1.4 Protein Calculated 85-99 Fluid: ml 1917-2272ml (1ml/kcal) Nutritional Problem 1. Problem Problem increased nutrition needs ( calorie and protein0 Etiology increased metabolic demand for wound healing Signs/Symptoms: diabetic ulcer Malnutrition Alert Protein-Calorie Malnutrition N/A Is there a minimum of two criteria No selected? Query Text:Check all the applicable criteria. A minimum of two criteria are recommended for diagnosis of either severe or non-severe malnutrition. Intervention/Recommendation Comments 1. Recommend [facility] low sodium diet for optimal glycemic control. Notified RN, will talk to MD. 2. Monitor PO intake, wt, labs and skin integrity 3. F/U as moderate risk in 3-5 days, 05/25-05/27, PO check 05/24 Expected Outcomes/Goals Expected Outcomes/Goals 1. PO intake to meet at least 75% of nutritional needs. 2. Wt stability, skin to remain intact, labs to improve
[2017-05-30] MEDS ORDERED: Levofloxacin 500mg/100mL 500 MG/100 ML BAG IV SCH (06:00)
[2017-05-30] MEDS ORDERED: Levofloxacin 250mg/50mL 250 MG/50 ML BAG IV SCH (06:00)
[2017-05-30] MEDS: INSULIN ASPART SLIDING SCALE 100 UNITS/ML UNIT SUBQ SCH ×5 (06:36→21:10)
--- NOTE | 2017-05-30 08:38 | General Progress Note ---
Subjective - Review of Systems Events since last encounter: no change Objective - Results Result Diagrams: 05/29/17 10:35 05/29/17 10:35 Recent Labs: Laboratory Last Values WBC 20.4 Th/cmm (4.8-10.8) H* 05/29/17 10:35 RBC 3.50 Mil/cmm (3.80-5.80) L 05/29/17 10:35 Hgb 10.3 gm/dL (12-16) L 05/29/17 10:35 Hct 29.9 % (41.0-60) L 05/29/17 10:35 MCV 85.2 fl (80-99) 05/29/17 10:35 MCH 29.3 pg (27.0-31.0) 05/29/17 10:35 MCHC Differential 34.4 pg (28.0-36.0) 05/29/17 10:35 RDW 13.6 % (11.5-20.0) 05/29/17 10:35 Plt Count 496 Th/cmm (150-400) H 05/29/17 10:35 MPV 7.4 fl 05/29/17 10:35 Neutrophils % 82.9 % (40.0-80.0) H 05/28/17 06:10 Band Neutrophils % 11 % (0-10) H 05/25/17 06:57 Lymphocytes % 8.4 % (20.0-50.0) L 05/28/17 06:10 Monocytes % 6.3 % (2.0-10.0) 05/28/17 06:10 Eosinophils % 0.6 % (0.0-5.0) 05/28/17 06:10 Basophils % 1.8 % (0.0-2.0) 05/28/17 06:10 Neutrophils (Manual) 77 % (40-80) 05/25/17 06:57 Lymphocytes 4 % (20-50) L 05/25/17 06:57 Monocytes 8 % (2-10) 05/25/17 06:57 Platelet Estimate ADEQUATE (NORMAL) 05/25/17 06:57 PT 11.4 SECONDS (9.5-11.5) 05/21/17 12:55 INR 1.09 (0.5-1.4) 05/21/17 12:55 PTT (Actin FS) 28.4 SECONDS (26.0-38.0) 05/21/17 12:55 Sodium 131 mEq/L (136-145) L 05/29/17 10:35 Potassium 3.4 mEq/L (3.5-5.1) L 05/29/17 10:35 Chloride 106 mEq/L (98-107) 05/29/17 10:35 Carbon Dioxide 16.0 mEq/L (21.0-31.0) L 05/29/17 10:35 Anion Gap 12.4 (7.0-16.0) 05/29/17 10:35 BUN 23 mg/dL (7-25) 05/29/17 10:35 Creatinine 2.3 mg/dL (0.7-1.3) H 05/29/17 10:35 Est GFR ( Amer) TNP 05/29/17 10:35 Est GFR (Non-Af Amer) TNP 05/29/17 10:35 BUN/Creatinine Ratio 10.0 05/29/17 10:35 Glucose 157 mg/dL (70-105) H 05/29/17 10:35 POC Glucose 162 MG/DL (70 - 105) H 05/30/17 06:05 Hemoglobin A1c % 7.9 % (4.0-6.0) H 05/25/17 06:56 Whole Bld Lactic Acid 0.82 mmol/L (0.60-1.99) 05/21/17 12:55 Calcium 7.4 mg/dL (8.6-10.3) L 05/29/17 10:35 Total Bilirubin 0.2 mg/dL (0.3-1.0) L 05/21/17 12:55 AST 8 U/L (13-39) L 05/21/17 12:55 ALT 8 U/L (7-52) 05/21/17 12:55 Alkaline Phosphatase 64 U/L (34-104) 05/21/17 12:55 Creatine Kinase 63 U/L (30-223) 05/21/17 12:55 Troponin I 0.12 ng/mL (0.01-0.05) H* 05/21/17 12:55 B-Natriuretic Peptide 350.0 pg/mL (5.0-100.0) H 05/21/17 12:55 Total Protein 6.5 gm/dL (6.0-8.3) 05/21/17 12:55 Albumin 3.0 gm/dL (4.2-5.5) L 05/21/17 12:55 Globulin 3.5 gm/dL 05/21/17 12:55 Albumin/Globulin Ratio 0.9 (1.0-1.8) L 05/21/17 12:55 Triglycerides 107 mg/dL (<150) 05/22/17 06:00 Cholesterol 102 mg/dL (<200) 05/22/17 06:00 LDL Cholesterol Direct 58 mg/dL (75-193) L 05/22/17 06:00 HDL Cholesterol 29 mg/dL (23-92) 05/22/17 06:00 Amylase 32 U/L (29-103) 05/21/17 12:55 Lipase 14 U/L (11-82) 05/21/17 12:55 TSH 0.97 uIU/ml (0.34-5.60) 05/22/17 06:00 Urine Source MIDSTREAM 05/21/17 16:00 Urine Color YELLOW 05/21/17 16:00 Urine Clarity HAZY (CLEAR) 05/21/17 16:00 Urine pH 6.0 (4.6 - 8.0) 05/21/17 16:00 Ur Specific [place] 1.025 (1.005-1.030) 05/21/17 16:00 Urine Protein >=300 mg/dL (NEGATIVE) 05/21/17 16:00 Urine Glucose (UA) 250 mg/dL (NEGATIVE) H 05/21/17 16:00 Urine Ketones NEGATIVE mg/dL (NEGATIVE) 05/21/17 16:00 Urine Blood MODERATE (NEGATIVE) H 05/21/17 16:00 Urine Nitrate NEGATIVE (NEGATIVE) 05/21/17 16:00 Urine Bilirubin NEGATIVE (NEGATIVE) 05/21/17 16:00 Urine Urobilinogen 0.2 E.U./dL (0.2 - 1.0) 05/21/17 16:00 Ur Leukocyte Esterase NEGATIVE (NEGATIVE) 05/21/17 16:00 Urine RBC 5-10 /hpf (0-5) H 05/21/17 16:00 Urine WBC 2-5 /hpf (0-5) H 05/21/17 16:00 Ur Epithelial Cells NONE SEEN /lpf (FEW) 05/21/17 16:00 Urine Bacteria NONE SEEN /hpf (NONE SEEN) 05/21/17 16:00 Influenza A (Rapid) POS FOR INF A H 05/24/17 14:30 Influenza B (Rapid) NEG FOR INF B 05/24/17 14:30 - Physical Exam Vitals and I&O: Vital Signs Temp 98.4 F 05/30/17 04:06 Pulse 77 05/30/17 04:06 Resp 18 05/30/17 04:06 BP 111/41 05/30/17 04:06 Pulse Ox 97 05/30/17 04:06 Intake & Output 05/29/17 05/30/17 05/30/17 18:59 06:59 18:59 Intake Total 120 50 Output Total 200 400 Balance -80 -350 Weight (lbs) 68.81 kg 69.082 kg Intake: Oral 120 50 Output: Urine 200 400 Other: # Voids 1 2 # Bowel Movements 0 3 Stool Characteristics Soft Active Medications: Current Medications Acetaminophen (Tylenol) 650 mg PO Q4H PRN PRN Reason: Fever > 101 Stop: 07/20/17 20:29 Last Admin: 05/30/17 02:34 Dose: 650 mg Acetaminophen (Tylenol) 650 mg PO Q4HR PRN PRN Reason: Pain (Mild) Stop: 07/20/17 21:42 Amlodipine Besylate (Norvasc) 10 mg PO DAILY [facility] Stop: 07/21/17 08:59 Last Admin: 05/29/17 11:14 Dose: 10 mg Atorvastatin Calcium (Lipitor) 10 mg PO [facility] PRN Reason: Protocol Stop: 07/21/17 20:59 Last Admin: 05/29/17 22:37 Dose: 10 mg Benazepril HCl (Lotensin) 20 mg PO DAILY [facility] Stop: 07/21/17 08:59 Last Admin: 05/29/17 11:12 Dose: 20 mg Bisacodyl (Dulcolax 10 Mg Supp) 10 mg RC DAILY PRN PRN Reason: Constipation Stop: 07/20/17 21:42 Clopidogrel Bisulfate (Plavix) 75 mg PO DAILY [facility] Stop: 07/21/17 12:59 Last Admin: 05/29/17 11:13 Dose: 75 mg Dextrose (D50w) 50 ml IVP PRN PRN PRN Reason: BS <70 if w/IV&not swallow Stop: 07/20/17 21:42 Dextrose (Glutose 40%) 15 gm PO PRN PRN PRN Reason: BS BELOW 70 & ABLE TO SWALLOW Stop: 07/20/17 21:42 Docusate Sodium (Colace) 100 mg PO Q12H PRN PRN Reason: Constipation Stop: 07/20/17 21:42 Last Admin: 05/29/17 11:14 Dose: 100 mg Finasteride (Proscar) 5 mg PO DAILY [facility] PRN Reason: Protocol Stop: 07/21/17 12:59 Last Admin: 05/29/17 11:12 Dose: 5 mg Fluticasone Propionate (Flonase) 1 spr NS DAILY [facility] Stop: 07/21/17 08:59 Last Admin: 05/29/17 17:24 Dose: Not Given Dextrose/Sodium Chloride (D5-0.45ns) 1,000 mls @ 50 mls/hr IV .Q20H [facility] Stop: 07/20/17 21:59 Last Admin: 05/29/17 22:38 Dose: 50 mls/hr Levofloxacin (Levaquin Pb) 500 mg in 100 mls @ 100 mls/hr IV Q48HR [facility] Stop: 07/27/17 05:59 Last Admin: 05/30/17 06:16 Dose: 100 mls/hr Levofloxacin (Levaquin Pb) 250 mg in 50 mls @ 50 mls/hr IV Q48HR [facility] Stop: 07/27/17 05:59 Last Admin: 05/30/17 05:02 Dose: 50 mls/hr Insulin Aspart (Novolog Insulin Sliding Scale) 0 units SUBQ ACHS [facility] PRN Reason: Protocol Stop: 07/21/17 07:29 Last Admin: 05/30/17 06:36 Dose: 2 units Labetalol HCl (Trandate) 200 mg PO DAILY [facility] Stop: 07/22/17 08:59 Last Admin: 05/29/17 11:14 Dose: 200 mg Loperamide HCl (Imodium) 2 mg PO Q8HR PRN PRN Reason: Diarrhea Stop: 07/26/17 20:12 Last Admin: 05/27/17 21:50 Dose: 2 mg Magnesium Hydroxide (Milk Of Magnesia) 30 ml PO DAILY PRN PRN Reason: Constipation Stop: 07/20/17 21:42 Metronidazole (Flagyl) 500 mg PO TID [facility] Stop: 06/05/17 21:01 Miscellaneous (Clinical Monitoring) 1 ea MC DAILY PRN PRN Reason: RENAL Stop: 07/27/17 15:33 Ondansetron HCl (Zofran Odt) 4 mg PO Q6HR PRN PRN Reason: Nausea Stop: 07/20/17 21:42 Last Admin: 05/29/17 22:37 Dose: 4 mg Sodium Phosphate (Fleet Enema) 135 ml RC DAILY PRN PRN Reason: IF MOM & DULCOLAZ INEFFECTIVE Stop: 07/21/17 08:59 Tamsulosin HCl (Flomax) 0.4 mg PO DAILY [facility] Stop: 07/21/17 08:59 Last Admin: 05/29/17 11:11 Dose: 0.4 mg General: No acute distress HEENT: Atraumatic, PERRLA Neck: Supple Cardiovascular: Regular rate, Normal S1, Normal S2 Lungs: Clear to auscultation Assessment/Plan - Problem List Patient Problems: All Active Problems Below knee amputation status (Acute) Z89.519 CAD (coronary artery disease) (Acute) I25.10 CHF (congestive heart failure) (Acute) I50.9 COPD (chronic obstructive pulmonary disease) (Acute) Diabetes (Acute) E11.9 HTN (hypertension) (Acute) I10 Sepsis (Acute) UTI (urinary tract infection) (Acute) - Plan Plan: cpm Nutritional Asmnt/Malnutr-PDOC - Dietary Evaluation Malnutrition Findings (Please click <Entered> for more info): Nutritional Asmnt/Malnutrition Start: 05/22/17 16: 34 Text: Status: Complete Freq: Document 05/22/17 16:34 LCHENG (Rec: 05/22/17 16:56 LCHENG [email or web address]) Nutritional Asmnt/Malnutrition Patient General Information Nutritional Screening High Risk Diagnosis sepsis, hyponatremia Pertinent Medical Hx/Surgical Hx HTN, DM, CAD, CHF, Asthma/COPD , left BKA Subjective Information Pt seen sitting in bed having lunch at the time of visit. [place] speaking. pt reported appetite not well, ate 50% of breakfast this morning. adjusted BMI= 26.7 considering left BKA Current Diet Order/ Nutrition Support low sodium, prosource 30ml TID Pertinent Medications d5-0.45ns, colace, novolog, lavaquin Pertinent Labs 05/22 Na 139, K 3.3, Cl 110, Glucose 158, POC 139-180, Ca 7 .6 Nutritional Hx/Data Height 1.68 m Height (Calculated Centimeters) 167.6 Current Weight (lbs) 71.214 kg Weight (Calculated Kilograms) 71.2 Weight (Calculated Grams) 17373.0 [place] Body Weight 134 % [place] Body Weight 117 Body Mass Index (BMI) 25.3 Weight Status Overweight GI Symptoms GI Symptoms None Last BM none Difficult in: None Skin Integrity/Comment: scar to left leg d/t BKA, diabetic ulcer between 2nd and 3rd toes, darkened area to right leg Estimated Nutritional Goals BEE in Kcals: Using Current wt Calories/Kcals/Kg 27-32 Kcals Calculated 5622-6602 Protein: Using Current wt Protein g/k.2-1.4 Protein Calculated 85-99 Fluid: ml 1917-2272ml (1ml/kcal) Nutritional Problem 1. Problem Problem increased nutrition needs ( calorie and protein0 Etiology increased metabolic demand for wound healing Signs/Symptoms: diabetic ulcer Malnutrition Alert Protein-Calorie Malnutrition N/A Is there a minimum of two criteria No selected? Query Text:Check all the applicable criteria. A minimum of two criteria are recommended for diagnosis of either severe or non-severe malnutrition. Intervention/Recommendation Comments 1. Recommend [facility] low sodium diet for optimal glycemic control. Notified RN, will talk to MD. 2. Monitor PO intake, wt, labs and skin integrity 3. F/U as moderate risk in 3-5 days, 05/25-05/27, PO check 05/24 Expected Outcomes/Goals Expected Outcomes/Goals 1. PO intake to meet at least 75% of nutritional needs. 2. Wt stability, skin to remain intact, labs to improve
[2017-05-30] MEDS: Fluticasone Propionate 0.05mg/Actuation 16gm Nasal Spray NS SCH (09:33)
[2017-05-30] MEDS ORDERED: Diphenoxylate/Atropine 2.5mg Tab PO PRN (14:34)
--- NOTE | 2017-05-30 14:53 | Infectious Disease Prog Note ---
Infectious Disease Subjective - Review of Systems Service Date: 05/30/17 Subjective: No new change, No fever. Developed diarrhea. Infectious Disease Objective - Results Result Diagrams: 05/29/17 10:35 05/29/17 10:35 Recent Labs: Laboratory Last Values WBC 20.4 Th/cmm (4.8-10.8) H* 05/29/17 10:35 RBC 3.50 Mil/cmm (3.80-5.80) L 05/29/17 10:35 Hgb 10.3 gm/dL (12-16) L 05/29/17 10:35 Hct 29.9 % (41.0-60) L 05/29/17 10:35 MCV 85.2 fl (80-99) 05/29/17 10:35 MCH 29.3 pg (27.0-31.0) 05/29/17 10:35 MCHC Differential 34.4 pg (28.0-36.0) 05/29/17 10:35 RDW 13.6 % (11.5-20.0) 05/29/17 10:35 Plt Count 496 Th/cmm (150-400) H 05/29/17 10:35 MPV 7.4 fl 05/29/17 10:35 Neutrophils % 82.9 % (40.0-80.0) H 05/28/17 06:10 Band Neutrophils % 11 % (0-10) H 05/25/17 06:57 Lymphocytes % 8.4 % (20.0-50.0) L 05/28/17 06:10 Monocytes % 6.3 % (2.0-10.0) 05/28/17 06:10 Eosinophils % 0.6 % (0.0-5.0) 05/28/17 06:10 Basophils % 1.8 % (0.0-2.0) 05/28/17 06:10 Neutrophils (Manual) 77 % (40-80) 05/25/17 06:57 Lymphocytes 4 % (20-50) L 05/25/17 06:57 Monocytes 8 % (2-10) 05/25/17 06:57 Platelet Estimate ADEQUATE (NORMAL) 05/25/17 06:57 PT 11.4 SECONDS (9.5-11.5) 05/21/17 12:55 INR 1.09 (0.5-1.4) 05/21/17 12:55 PTT (Actin FS) 28.4 SECONDS (26.0-38.0) 05/21/17 12:55 Sodium 131 mEq/L (136-145) L 05/29/17 10:35 Potassium 3.4 mEq/L (3.5-5.1) L 05/29/17 10:35 Chloride 106 mEq/L (98-107) 05/29/17 10:35 Carbon Dioxide 16.0 mEq/L (21.0-31.0) L 05/29/17 10:35 Anion Gap 12.4 (7.0-16.0) 05/29/17 10:35 BUN 23 mg/dL (7-25) 05/29/17 10:35 Creatinine 2.3 mg/dL (0.7-1.3) H 05/29/17 10:35 Est GFR ( Amer) TNP 05/29/17 10:35 Est GFR (Non-Af Amer) TNP 05/29/17 10:35 BUN/Creatinine Ratio 10.0 05/29/17 10:35 Glucose 157 mg/dL (70-105) H 05/29/17 10:35 POC Glucose 171 MG/DL (70 - 105) H 05/30/17 12:09 Hemoglobin A1c % 7.9 % (4.0-6.0) H 05/25/17 06:56 Whole Bld Lactic Acid 0.82 mmol/L (0.60-1.99) 05/21/17 12:55 Calcium 7.4 mg/dL (8.6-10.3) L 05/29/17 10:35 Total Bilirubin 0.2 mg/dL (0.3-1.0) L 05/21/17 12:55 AST 8 U/L (13-39) L 05/21/17 12:55 ALT 8 U/L (7-52) 05/21/17 12:55 Alkaline Phosphatase 64 U/L (34-104) 05/21/17 12:55 Creatine Kinase 63 U/L (30-223) 05/21/17 12:55 Troponin I 0.12 ng/mL (0.01-0.05) H* 05/21/17 12:55 B-Natriuretic Peptide 350.0 pg/mL (5.0-100.0) H 05/21/17 12:55 Total Protein 6.5 gm/dL (6.0-8.3) 05/21/17 12:55 Albumin 3.0 gm/dL (4.2-5.5) L 05/21/17 12:55 Globulin 3.5 gm/dL 05/21/17 12:55 Albumin/Globulin Ratio 0.9 (1.0-1.8) L 05/21/17 12:55 Triglycerides 107 mg/dL (<150) 05/22/17 06:00 Cholesterol 102 mg/dL (<200) 05/22/17 06:00 LDL Cholesterol Direct 58 mg/dL (75-193) L 05/22/17 06:00 HDL Cholesterol 29 mg/dL (23-92) 05/22/17 06:00 Amylase 32 U/L (29-103) 05/21/17 12:55 Lipase 14 U/L (11-82) 05/21/17 12:55 TSH 0.97 uIU/ml (0.34-5.60) 05/22/17 06:00 Urine Source MIDSTREAM 05/21/17 16:00 Urine Color YELLOW 05/21/17 16:00 Urine Clarity HAZY (CLEAR) 05/21/17 16:00 Urine pH 6.0 (4.6 - 8.0) 05/21/17 16:00 Ur Specific [place] 1.025 (1.005-1.030) 05/21/17 16:00 Urine Protein >=300 mg/dL (NEGATIVE) 05/21/17 16:00 Urine Glucose (UA) 250 mg/dL (NEGATIVE) H 05/21/17 16:00 Urine Ketones NEGATIVE mg/dL (NEGATIVE) 05/21/17 16:00 Urine Blood MODERATE (NEGATIVE) H 05/21/17 16:00 Urine Nitrate NEGATIVE (NEGATIVE) 05/21/17 16:00 Urine Bilirubin NEGATIVE (NEGATIVE) 05/21/17 16:00 Urine Urobilinogen 0.2 E.U./dL (0.2 - 1.0) 05/21/17 16:00 Ur Leukocyte Esterase NEGATIVE (NEGATIVE) 05/21/17 16:00 Urine RBC 5-10 /hpf (0-5) H 05/21/17 16:00 Urine WBC 2-5 /hpf (0-5) H 05/21/17 16:00 Ur Epithelial Cells NONE SEEN /lpf (FEW) 05/21/17 16:00 Urine Bacteria NONE SEEN /hpf (NONE SEEN) 05/21/17 16:00 Influenza A (Rapid) POS FOR INF A H 05/24/17 14:30 Influenza B (Rapid) NEG FOR INF B 05/24/17 14:30 - Physical Exam Vitals and I&O: Vital Signs Temp 97.8 F 05/30/17 12:08 Pulse 71 05/30/17 12:08 Resp 18 05/30/17 12:08 BP 102/58 05/30/17 12:08 Pulse Ox 97 05/30/17 12:08 Intake & Output 05/29/17 05/30/17 05/30/17 18:59 06:59 18:59 Intake Total 120 100 100 Output Total 200 400 Balance -80 -300 100 Weight (lbs) 68.81 kg 69.082 kg Intake: Intake, IV Amount 50 100 Levofloxacin 250mg/50mL 50 250 mg In 50 ml @ 50 mls/ hr IV Q48HR [facility] Rx#: [id number] Levofloxacin 500mg/100mL 100 500 mg In 100 ml @ 100 mls/hr IV Q48HR [facility] Rx#: [id number] Oral 120 50 Output: Urine 200 400 Other: # Voids 1 2 # Bowel Movements 0 3 Stool Characteristics Soft Active Medications: Current Medications Acetaminophen (Tylenol) 650 mg PO Q4H PRN PRN Reason: Fever > 101 Stop: 07/20/17 20:29 Last Admin: 05/30/17 02:34 Dose: 650 mg Acetaminophen (Tylenol) 650 mg PO Q4HR PRN PRN Reason: Pain (Mild) Stop: 07/20/17 21:42 Amlodipine Besylate (Norvasc) 10 mg PO DAILY [facility] Stop: 07/21/17 08:59 Last Admin: 05/30/17 09:32 Dose: 10 mg Atorvastatin Calcium (Lipitor) 10 mg PO HS [facility] PRN Reason: Protocol Stop: 07/21/17 20:59 Last Admin: 05/29/17 22:37 Dose: 10 mg Benazepril HCl (Lotensin) 20 mg PO DAILY [facility] Stop: 07/21/17 08:59 Last Admin: 05/30/17 09:32 Dose: 20 mg Bisacodyl (Dulcolax 10 Mg Supp) 10 mg RC DAILY PRN PRN Reason: Constipation Stop: 07/20/17 21:42 Cholestyramine Resin (Questran) 4 gm PO BID [facility] Stop: 07/29/17 16:59 Clopidogrel Bisulfate (Plavix) 75 mg PO DAILY [facility] Stop: 07/21/17 12:59 Last Admin: 05/30/17 09:33 Dose: 75 mg Dextrose (D50w) 50 ml IVP PRN PRN PRN Reason: BS <70 if w/IV&not swallow Stop: 07/20/17 21:42 Dextrose (Glutose 40%) 15 gm PO PRN PRN PRN Reason: BS BELOW 70 & ABLE TO SWALLOW Stop: 07/20/17 21:42 Diphenoxylate HCl/Atropine (Lomotil) 2 tab PO TID PRN PRN Reason: Diarrhea Stop: 07/29/17 14:33 Last Admin: 05/30/17 14:47 Dose: 2 tab Docusate Sodium (Colace) 100 mg PO Q12H PRN PRN Reason: Constipation Stop: 07/20/17 21:42 Last Admin: 05/29/17 11:14 Dose: 100 mg Finasteride (Proscar) 5 mg PO DAILY [facility] PRN Reason: Protocol Stop: 07/21/17 12:59 Last Admin: 05/30/17 09:32 Dose: 5 mg Fluticasone Propionate (Flonase) 1 spr NS DAILY [facility] Stop: 07/21/17 08:59 Last Admin: 05/30/17 09:33 Dose: Not Given Dextrose/Sodium Chloride (D5-0.45ns) 1,000 mls @ 50 mls/hr IV .Q20H [facility] Stop: 07/20/17 21:59 Last Admin: 05/29/17 22:38 Dose: 50 mls/hr Levofloxacin (Levaquin Pb) 500 mg in 100 mls @ 100 mls/hr IV Q48HR [facility] Stop: 07/27/17 05:59 Last Infusion: 05/30/17 07:20 Dose: Infused Levofloxacin (Levaquin Pb) 250 mg in 50 mls @ 50 mls/hr IV Q48HR [facility] Stop: 07/27/17 05:59 Last Infusion: 05/30/17 06:10 Dose: Infused Insulin Aspart (Novolog Insulin Sliding Scale) 0 units SUBQ ACHS [facility] PRN Reason: Protocol Stop: 07/21/17 07:29 Last Admin: 05/30/17 12:26 Dose: 2 units Labetalol HCl (Trandate) 200 mg PO DAILY [facility] Stop: 07/22/17 08:59 Last Admin: 05/30/17 09:31 Dose: 200 mg Loperamide HCl (Imodium) 2 mg PO Q8HR PRN PRN Reason: Diarrhea Stop: 07/26/17 20:12 Last Admin: 05/27/17 21:50 Dose: 2 mg Magnesium Hydroxide (Milk Of Magnesia) 30 ml PO DAILY PRN PRN Reason: Constipation Stop: 07/20/17 21:42 Metronidazole (Flagyl) 500 mg PO TID [facility] Stop: 06/05/17 21:01 Last Admin: 05/30/17 14:48 Dose: 500 mg Miscellaneous (Clinical Monitoring) 1 ea MC DAILY PRN PRN Reason: RENAL Stop: 07/27/17 15:33 Ondansetron HCl (Zofran Odt) 4 mg PO Q6HR PRN PRN Reason: Nausea Stop: 07/20/17 21:42 Last Admin: 05/29/17 22:37 Dose: 4 mg Sodium Phosphate (Fleet Enema) 135 ml RC DAILY PRN PRN Reason: IF MOM & DULCOLAZ INEFFECTIVE Stop: 07/21/17 08:59 Tamsulosin HCl (Flomax) 0.4 mg PO DAILY [facility] Stop: 07/21/17 08:59 Last Admin: 05/30/17 09:32 Dose: 0.4 mg General: no acute distress, well developed, well nourished HEENT: atraumatic, normocephalic, PERRLA, EOMI, moist mucous membrane Neck: supple, no thyromegaly Cardiovascular: S1S2, regular Lungs: clear to auscultation bilaterally, clear to percussion Abdomen: soft, no tender, no distended Extremities: no cyanosis, no clubbing, no edema Neurological: awake, alert, oriented Skin: intact Infectious Disease Assmt/Plan - Problem List Patient Problems: All Active Problems Below knee amputation status (Acute) Z89.519 CAD (coronary artery disease) (Acute) I25.10 CHF (congestive heart failure) (Acute) I50.9 COPD (chronic obstructive pulmonary disease) (Acute) Diabetes (Acute) E11.9 HTN (hypertension) (Acute) I10 Sepsis (Acute) UTI (urinary tract infection) (Acute) - Assessment Assessment: 1. Sepsis. 2. UTI. 3. Diabetes mellitus type 2. 4. Hypertension. 5. Coronary artery disease. 6. CHF. 7. Asthma. 8. COPD. 9. influenza A treated. Recommendations: Dc levaquin. Continue flagyl. Stool studies. Nutritional Asmnt/Malnutr-PDOC - Dietary Evaluation Malnutrition Findings (Please click <Entered> for more info): Nutritional Asmnt/Malnutrition Start: 05/22/17 16: 34 Text: Status: Complete Freq: Document 05/22/17 16:34 FRANCY (Rec: 05/22/17 16:56 FRANCY [email or web address]) Nutritional Asmnt/Malnutrition Patient General Information Nutritional Screening High Risk Diagnosis sepsis, hyponatremia Pertinent Medical Hx/Surgical Hx HTN, DM, CAD, CHF, Asthma/COPD , left BKA Subjective Information Pt seen sitting in bed having lunch at the time of visit. [place] speaking. pt reported appetite not well, ate 50% of breakfast this morning. adjusted BMI= 26.7 considering left BKA Current Diet Order/ Nutrition Support low sodium, prosource 30ml TID Pertinent Medications d5-0.45ns, colace, novolog, lavaquin Pertinent Labs 1/3 Na 139, K 3.3, Cl 110, Glucose 158, POC 139-180, Ca 7 .6 Nutritional Hx/Data Height 1.68 m Height (Calculated Centimeters) 167.6 Current Weight (lbs) 71.214 kg Weight (Calculated Kilograms) 71.2 Weight (Calculated Grams) 43629.0 [place] Body Weight 134 % [place] Body Weight 117 Body Mass Index (BMI) 25.3 Weight Status Overweight GI Symptoms GI Symptoms None Last BM none Difficult in: None Skin Integrity/Comment: scar to left leg d/t BKA, diabetic ulcer between 2nd and 3rd toes, darkened area to right leg Estimated Nutritional Goals BEE in Kcals: Using Current wt Calories/Kcals/Kg 27-32 Kcals Calculated 3579-9599 Protein: Using Current wt Protein g/k.2-1.4 Protein Calculated 85-99 Fluid: ml 1917-2272ml (1ml/kcal) Nutritional Problem 1. Problem Problem increased nutrition needs ( calorie and protein0 Etiology increased metabolic demand for wound healing Signs/Symptoms: diabetic ulcer Malnutrition Alert Protein-Calorie Malnutrition N/A Is there a minimum of two criteria No selected? Query Text:Check all the applicable criteria. A minimum of two criteria are recommended for diagnosis of either severe or non-severe malnutrition. Intervention/Recommendation Comments 1. Recommend [facility] low sodium diet for optimal glycemic control. Notified RN, will talk to MD. 2. Monitor PO intake, wt, labs and skin integrity 3. F/U as moderate risk in 3-5 days, 05/25-05/27, PO check 05/24 Expected Outcomes/Goals Expected Outcomes/Goals 1. PO intake to meet at least 75% of nutritional needs. 2. Wt stability, skin to remain intact, labs to improve
[2017-05-30] MEDS ORDERED: Sodium Chloride 0.9% 1,000 ML IV SCH (17:15)
[2017-05-30] MEDS: Atorvastatin Calcium 10 MG TAB PO SCH (21:11)
--- NOTE | 2017-05-30 23:44 | Progress Notes ---
DATE: UROLOGY PROGRESS NOTE HOSPITAL COURSE: The patient is voiding quite well without dysuria or incontinence. Unfortunately, he has developed diarrhea and is being evaluated now for another infection. PHYSICAL EXAMINATION: VITAL SIGNS: His temperature is 97.8, heart rate 71, blood pressure 102/58. No recent fever. ABDOMEN: Soft, nontender. No organomegaly, mass, or hernia. EXTREMITIES: No edema. HEART: Heart sounds sinus rhythm, no murmur. LABS: Glucose 171 and 162. Yesterday's white count was elevated to 20.4 with no bands and mild left shift. The cause for this may be the diarrhea and infection, which is being evaluated by appropriate doctors. IMPRESSION: 1. History of urinary retention, which is intermittent probably neurogenic and generally manageable as well as reluctance of the patient to go through cystoscopy or any procedure indicates that we leave him alone and observe him and intervene as needed. 2. Diabetes less than optimal control is probably the cause for his neurogenic bladder. 3. Coronary artery disease, currently stable. 4. Chronic obstructive pulmonary disease with exacerbation from influenza, recovering gradually. 5. Hypertension, well controlled. JOB# [id number]
[2017-05-31] MEDS: INSULIN ASPART SLIDING SCALE 100 UNITS/ML UNIT SUBQ SCH ×5 (06:33→20:56)
[2017-05-31] MEDS: Fluticasone Propionate 0.05mg/Actuation 16gm Nasal Spray NS SCH (09:18)
--- NOTE | 2017-05-31 20:47 | Internal Medicine Prog Note ---
Internal Medicine Subjective - Subjective Service Date: 05/31/17 Patient seen and examined:: with staff Patient is:: awake Per staff patient has:: no adverse event, tolerating meds Internal Medicine Objective - Results Result Diagrams: 05/29/17 10:35 05/29/17 10:35 Recent Labs: Laboratory Last Values WBC 20.4 Th/cmm (4.8-10.8) H* 05/29/17 10:35 RBC 3.50 Mil/cmm (3.80-5.80) L 05/29/17 10:35 Hgb 10.3 gm/dL (12-16) L 05/29/17 10:35 Hct 29.9 % (41.0-60) L 05/29/17 10:35 MCV 85.2 fl (80-99) 05/29/17 10:35 MCH 29.3 pg (27.0-31.0) 05/29/17 10:35 MCHC Differential 34.4 pg (28.0-36.0) 05/29/17 10:35 RDW 13.6 % (11.5-20.0) 05/29/17 10:35 Plt Count 496 Th/cmm (150-400) H 05/29/17 10:35 MPV 7.4 fl 05/29/17 10:35 Neutrophils % 82.9 % (40.0-80.0) H 05/28/17 06:10 Band Neutrophils % 11 % (0-10) H 05/25/17 06:57 Lymphocytes % 8.4 % (20.0-50.0) L 05/28/17 06:10 Monocytes % 6.3 % (2.0-10.0) 05/28/17 06:10 Eosinophils % 0.6 % (0.0-5.0) 05/28/17 06:10 Basophils % 1.8 % (0.0-2.0) 05/28/17 06:10 Neutrophils (Manual) 77 % (40-80) 05/25/17 06:57 Lymphocytes 4 % (20-50) L 05/25/17 06:57 Monocytes 8 % (2-10) 05/25/17 06:57 Platelet Estimate ADEQUATE (NORMAL) 05/25/17 06:57 PT 11.4 SECONDS (9.5-11.5) 05/21/17 12:55 INR 1.09 (0.5-1.4) 05/21/17 12:55 PTT (Actin FS) 28.4 SECONDS (26.0-38.0) 05/21/17 12:55 Sodium 131 mEq/L (136-145) L 05/29/17 10:35 Potassium 3.4 mEq/L (3.5-5.1) L 05/29/17 10:35 Chloride 106 mEq/L (98-107) 05/29/17 10:35 Carbon Dioxide 16.0 mEq/L (21.0-31.0) L 05/29/17 10:35 Anion Gap 12.4 (7.0-16.0) 05/29/17 10:35 BUN 23 mg/dL (7-25) 05/29/17 10:35 Creatinine 2.3 mg/dL (0.7-1.3) H 05/29/17 10:35 Est GFR ( Amer) TNP 05/29/17 10:35 Est GFR (Non-Af Amer) TNP 05/29/17 10:35 BUN/Creatinine Ratio 10.0 05/29/17 10:35 Glucose 157 mg/dL (70-105) H 05/29/17 10:35 POC Glucose 184 MG/DL (70 - 105) H 05/31/17 06:15 Hemoglobin A1c % 7.9 % (4.0-6.0) H 05/25/17 06:56 Whole Bld Lactic Acid 0.82 mmol/L (0.60-1.99) 05/21/17 12:55 Calcium 7.4 mg/dL (8.6-10.3) L 05/29/17 10:35 Total Bilirubin 0.2 mg/dL (0.3-1.0) L 05/21/17 12:55 AST 8 U/L (13-39) L 05/21/17 12:55 ALT 8 U/L (7-52) 05/21/17 12:55 Alkaline Phosphatase 64 U/L (34-104) 05/21/17 12:55 Creatine Kinase 63 U/L (30-223) 05/21/17 12:55 Troponin I 0.12 ng/mL (0.01-0.05) H* 05/21/17 12:55 B-Natriuretic Peptide 350.0 pg/mL (5.0-100.0) H 05/21/17 12:55 Total Protein 6.5 gm/dL (6.0-8.3) 05/21/17 12:55 Albumin 3.0 gm/dL (4.2-5.5) L 05/21/17 12:55 Globulin 3.5 gm/dL 05/21/17 12:55 Albumin/Globulin Ratio 0.9 (1.0-1.8) L 05/21/17 12:55 Triglycerides 107 mg/dL (<150) 05/22/17 06:00 Cholesterol 102 mg/dL (<200) 05/22/17 06:00 LDL Cholesterol Direct 58 mg/dL (75-193) L 05/22/17 06:00 HDL Cholesterol 29 mg/dL (23-92) 05/22/17 06:00 Amylase 32 U/L (29-103) 05/21/17 12:55 Lipase 14 U/L (11-82) 05/21/17 12:55 TSH 0.97 uIU/ml (0.34-5.60) 05/22/17 06:00 Urine Source MIDSTREAM 05/21/17 16:00 Urine Color YELLOW 05/21/17 16:00 Urine Clarity HAZY (CLEAR) 05/21/17 16:00 Urine pH 6.0 (4.6 - 8.0) 05/21/17 16:00 Ur Specific Cardale 1.025 (1.005-1.030) 05/21/17 16:00 Urine Protein >=300 mg/dL (NEGATIVE) 05/21/17 16:00 Urine Glucose (UA) 250 mg/dL (NEGATIVE) H 05/21/17 16:00 Urine Ketones NEGATIVE mg/dL (NEGATIVE) 05/21/17 16:00 Urine Blood MODERATE (NEGATIVE) H 05/21/17 16:00 Urine Nitrate NEGATIVE (NEGATIVE) 05/21/17 16:00 Urine Bilirubin NEGATIVE (NEGATIVE) 05/21/17 16:00 Urine Urobilinogen 0.2 E.U./dL (0.2 - 1.0) 05/21/17 16:00 Ur Leukocyte Esterase NEGATIVE (NEGATIVE) 05/21/17 16:00 Urine RBC 5-10 /hpf (0-5) H 05/21/17 16:00 Urine WBC 2-5 /hpf (0-5) H 05/21/17 16:00 Ur Epithelial Cells NONE SEEN /lpf (FEW) 05/21/17 16:00 Urine Bacteria NONE SEEN /hpf (NONE SEEN) 05/21/17 16:00 Stool Leukocyte NO WBC SEEN 05/30/17 12:00 Influenza A (Rapid) POS FOR INF A H 05/24/17 14:30 Influenza B (Rapid) NEG FOR INF B 05/24/17 14:30 - Physical Exam Vitals and I&O: Vital Signs Temp 98.3 F 05/31/17 18:27 Pulse 86 05/31/17 18:27 Resp 17 05/31/17 18:27 BP 127/54 05/31/17 18:27 Pulse Ox 94 05/31/17 18:27 Intake & Output 05/31/17 05/31/17 06/01/17 06:59 18:59 06:59 Intake Total 270 1600 Output Total 650 Balance -380 1600 Weight (lbs) 155 lb 3.2 oz 155 lb 3.2 oz Intake: Oral 270 1600 Output: Urine 650 Other: # Voids 2 5 # Bowel Movements 4 1 Active Medications: Current Medications Acetaminophen (Tylenol) 650 mg PO Q4H PRN PRN Reason: Fever > 101 Stop: 07/20/17 20:29 Last Admin: 05/30/17 02:34 Dose: 650 mg Acetaminophen (Tylenol) 650 mg PO Q4HR PRN PRN Reason: Pain (Mild) Stop: 07/20/17 21:42 Amlodipine Besylate (Norvasc) 10 mg PO DAILY [facility] Stop: 07/21/17 08:59 Last Admin: 05/31/17 09:09 Dose: Not Given Atorvastatin Calcium (Lipitor) 10 mg PO [facility] PRN Reason: Protocol Stop: 07/21/17 20:59 Last Admin: 05/30/17 21:11 Dose: 10 mg Benazepril HCl (Lotensin) 20 mg PO DAILY [facility] Stop: 07/21/17 08:59 Last Admin: 05/31/17 09:09 Dose: Not Given Bisacodyl (Dulcolax 10 Mg Supp) 10 mg RC DAILY PRN PRN Reason: Constipation Stop: 07/20/17 21:42 Cholestyramine Resin (Questran) 4 gm PO BID [place] Stop: 07/29/17 16:59 Last Admin: 05/31/17 17:39 Dose: 4 gm Clopidogrel Bisulfate (Plavix) 75 mg PO DAILY [facility] Stop: 07/21/17 12:59 Last Admin: 05/31/17 09:11 Dose: 75 mg Dextrose (D50w) 50 ml IVP PRN PRN PRN Reason: BS <70 if w/IV&not swallow Stop: 07/20/17 21:42 Dextrose (Glutose 40%) 15 gm PO PRN PRN PRN Reason: BS BELOW 70 & ABLE TO SWALLOW Stop: 07/20/17 21:42 Diphenoxylate HCl/Atropine (Lomotil) 2 tab PO TID PRN PRN Reason: Diarrhea Stop: 07/29/17 14:33 Last Admin: 05/30/17 14:47 Dose: 2 tab Docusate Sodium (Colace) 100 mg PO Q12H PRN PRN Reason: Constipation Stop: 07/20/17 21:42 Last Admin: 05/29/17 11:14 Dose: 100 mg Finasteride (Proscar) 5 mg PO DAILY [place] PRN Reason: Protocol Stop: 07/21/17 12:59 Last Admin: 05/31/17 09:09 Dose: 5 mg Fluticasone Propionate (Flonase) 1 spr NS DAILY [facility] Stop: 07/21/17 08:59 Last Admin: 05/31/17 09:18 Dose: 1 spr Sodium Chloride (Nacl 0.9%) 1,000 mls @ 20 mls/hr IV .Q24H [facility] Stop: 07/29/17 17:14 Last Admin: 05/30/17 17:10 Dose: 20 mls/hr Insulin Aspart (Novolog Insulin Sliding Scale) 0 units SUBQ ACHS [place] PRN Reason: Protocol Stop: 07/21/17 07:29 Last Admin: 05/31/17 17:38 Dose: 2 units Labetalol HCl (Trandate) 200 mg PO DAILY [facility] Stop: 07/22/17 08:59 Last Admin: 05/31/17 09:11 Dose: 200 mg Loperamide HCl (Imodium) 2 mg PO Q8HR PRN PRN Reason: Diarrhea Stop: 07/26/17 20:12 Last Admin: 05/31/17 12:17 Dose: 2 mg Magnesium Hydroxide (Milk Of Magnesia) 30 ml PO DAILY PRN PRN Reason: Constipation Stop: 07/20/17 21:42 Metronidazole (Flagyl) 500 mg PO TID [place] Stop: 06/05/17 21:01 Last Admin: 05/31/17 14:19 Dose: 500 mg Miscellaneous (Clinical Monitoring) 1 ea MC DAILY PRN PRN Reason: RENAL Stop: 07/27/17 15:33 Ondansetron HCl (Zofran Odt) 4 mg PO Q6HR PRN PRN Reason: Nausea Stop: 07/20/17 21:42 Last Admin: 05/31/17 17:35 Dose: 4 mg Sodium Phosphate (Fleet Enema) 135 ml RC DAILY PRN PRN Reason: IF MOM & DULCOLAZ INEFFECTIVE Stop: 07/21/17 08:59 Tamsulosin HCl (Flomax) 0.4 mg PO DAILY [facility] Stop: 07/21/17 08:59 Last Admin: 05/31/17 09:09 Dose: 0.4 mg General: alert HEENT: NC/AT, PERRLA Neck: Supple Cardiovascular: RRR, Normal S1, Normal S2, without murmur Abdomen: soft, non-tender, non-distended, positive bowel sound Internal Medicine Assmt/Plan - Assessment Assessment: sepsis hyponatremia - Plan Plan: CONTINUE IVABX PER ID CONTINUE CURRENT PLAN OF CARE Nutritional Asmnt/Malnutr-PDOC - Dietary Evaluation Malnutrition Findings (Please click <Entered> for more info): Nutritional Asmnt/Malnutrition Start: 05/22/17 16: 34 Text: Status: Complete Freq: Document 05/22/17 16:34 LCHENG (Rec: 05/22/17 16:56 LCHENG [email or web address]) Nutritional Asmnt/Malnutrition Patient General Information Nutritional Screening High Risk Diagnosis sepsis, hyponatremia Pertinent Medical Hx/Surgical Hx HTN, DM, CAD, CHF, Asthma/COPD , left BKA Subjective Information Pt seen sitting in bed having lunch at the time of visit. Israeli speaking. pt reported appetite not well, ate 50% of breakfast this morning. adjusted BMI= 26.7 considering left BKA Current Diet Order/ Nutrition Support low sodium, prosource 30ml TID Pertinent Medications d5-0.45ns, colace, novolog, lavaquin Pertinent Labs 05/22 Na 139, K 3.3, Cl 110, Glucose 158, POC 139-180, Ca 7 .6 Nutritional Hx/Data Height 5 ft 6 in Height (Calculated Centimeters) 167.6 Current Weight (lbs) 157 lb Weight (Calculated Kilograms) 71.2 Weight (Calculated Grams) 37471.0 [place] Body Weight 134 % [place] Body Weight 117 Body Mass Index (BMI) 25.3 Weight Status Overweight GI Symptoms GI Symptoms None Last BM none Difficult in: None Skin Integrity/Comment: scar to left leg d/t BKA, diabetic ulcer between 2nd and 3rd toes, darkened area to right leg Estimated Nutritional Goals BEE in Kcals: Using Current wt Calories/Kcals/Kg 27-32 Kcals Calculated 7919-2779 Protein: Using Current wt Protein g/k.2-1.4 Protein Calculated 85-99 Fluid: ml 1917-2272ml (1ml/kcal) Nutritional Problem 1. Problem Problem increased nutrition needs ( calorie and protein0 Etiology increased metabolic demand for wound healing Signs/Symptoms: diabetic ulcer Malnutrition Alert Protein-Calorie Malnutrition N/A Is there a minimum of two criteria No selected? Query Text:Check all the applicable criteria. A minimum of two criteria are recommended for diagnosis of either severe or non-severe malnutrition. Intervention/Recommendation Comments 1. Recommend [facility] low sodium diet for optimal glycemic control. Notified RN, will talk to MD. 2. Monitor PO intake, wt, labs and skin integrity 3. F/U as moderate risk in 3-5 days, 05/25-05/27, PO check 05/24 Expected Outcomes/Goals Expected Outcomes/Goals 1. PO intake to meet at least 75% of nutritional needs. 2. Wt stability, skin to remain intact, labs to improve
[2017-05-31] MEDS: Atorvastatin Calcium 10 MG TAB PO SCH (20:48)
[2017-05-31 22:41] LABS: INF A SCREEN NEG FOR INF A; INF B SCREEN NEG FOR INF B
--- NOTE | 2017-06-17 09:52 | Discharge Summary ---
DATE OF DISCHARGE: 06/01/2017 HOSPITAL COURSE: The patient is very well known to me. The patient is from [facility]. The patient had nausea, vomiting, weakness and dizziness, was seen in the Emergency Room, was evaluated and was admitted for acute gastroenteritis, severe leukocytosis, sepsis, hyponatremia, anemia, history of congestive heart failure, history of diabetes, history of coronary artery disease, history of asthma and COPD. The patient was given antibiotics and the patient managed his diabetes, hypertension, CHF and had multiple consultants including Cardiac as well as Infectious Disease doctor, and the patient gradually improved and the patient's CHF improved and the patient was in stable condition on 06/01/2017. The patient was discharged back to [place]. I will be following the patient there. MEDICATIONS: See the reconciliation sheet. CONDITION AT THE TIME OF DISCHARGE: Stable. JOB# [id number]
--- NOTE | 2017-06-23 23:27 | History & Physical ---
ADMIT DATE: 05/21/2017 DICTATING FOR: Dr. Cerna. CHIEF COMPLAINT: Nausea, vomiting, and weakness. HISTORY OF PRESENT ILLNESS: This is a 71-year-old male who is a resident of [facility] who is brought to [facility] due to symptoms of having nausea, vomiting, weakness, and dizziness. The patient was found to have acute gastroenteritis, with very severe leukocytosis and sepsis. For further management, the patient was admitted. PAST MEDICAL HISTORY: Hypertension, diabetes, CAD, CHF, asthma, and COPD. FAMILY HISTORY: Noncontributory. SOCIAL HISTORY: The patient is a [facility] resident. PAST SURGICAL HISTORY: Left BKA. REVIEW OF SYSTEMS: GENERAL: Denies any fevers and chills. CARDIOVASCULAR: Denies chest pain. RESPIRATORY: Denies shortness of breath. GASTROINTESTINAL: Denies nausea, vomiting, abdominal pain. GENITOURINARY: Denies increased frequency or dysuria. NEUROLOGIC: No headaches, seizures, or syncope. All other systems are reviewed and are negative. PHYSICAL EXAMINATION: GENERAL: The patient is a well-developed, well-nourished, no acute distress. VITAL SIGNS: Temperature 99.2, heart rate 80, and blood pressure 132/77. HEENT: Head normocephalic, atraumatic. NECK: Supple. No mass. LUNGS: Clear bilaterally. HEART: Regular rhythm. ABDOMEN: Soft, nontender. LABORATORY DATA: WBC is 15.2, H and H 9.5 and 28.3, and platelets 533. Sodium 135. BNP 350. Troponin 0.12. ASSESSMENT: Acute gastroenteritis, severe leukocytosis, sepsis, hyponatremia, anemia, history of congestive heart failure, history of diabetes, history of coronary artery disease, history of asthma, and chronic obstructive pulmonary disease. PLAN: The patient will be given IV antibiotics. We will have Cardiology and Infectious Disease on the case. We will continue to monitor the patient. [facility]# [id number]
== END 2017-06-01 01:15 | DRG 871 ==
LOC: ER 12:23 → MSI 18:40
PROVIDERS: ADMIT Internal Medicine; ATTEND Internal Medicine
DX: A41.9 Sepsis, unspecified organism (principal); J10.00 Influenza due to other identified influenza virus with unspecified type of pneumonia; N17.0 Acute kidney failure with tubular necrosis; E41 Nutritional marasmus; I11.0 Hypertensive heart disease with heart failure; E11.51 Type 2 diabetes mellitus with diabetic peripheral angiopathy without gangrene; D64.9 Anemia, unspecified; I50.9 Heart failure, unspecified; E87.1 Hypo-osmolality and hyponatremia; J44.1 Chronic obstructive pulmonary disease with (acute) exacerbation; N39.0 Urinary tract infection, site not specified; I25.10 Atherosclerotic heart disease of native coronary artery without angina pectoris; R33.9 Retention of urine, unspecified; Z83.3 Family history of diabetes mellitus; Z82.49 Family history of ischemic heart disease and other diseases of the circulatory system; Z89.512 Acquired absence of left leg below knee; Z79.4 Long term (current) use of insulin
CPT/HCPCS: 36415-UA; 71045-TC; 76857-TC; 80048-TC; 80053-TC; 80061-TC; 81001-TC; 82150-TC; 82550-TC; 82948-90; 83036-90; 83605; 83690-TC; 83880-TC; 84443-TC; 84484-TC; 85007-TC; 85025-TC; 85027-TC; 85610-TC; 85730-TC; 87086-90; 87209-90; 87230-TC; 87804-TC; 89055-TC; 93005; 94760; J0456; J0696; J1815; J1956; J7030; Q0162; Z7610